=== PATIENT | female | born 1930 | race Caucasian/White ===

== ENCOUNTER → 2016-10-12 | Day surgery (SDC) | payer MEDICARE, MEDICAID ==
[~2016-10-12] VITALS: Ht 152.4 cm
[~2016-10-12] MED LIST: ALLOPURINOL100 MG PO; AMBIEN5 MG PO; ASPIR 8181 MG PO; ASPIRIN; ASPIRIN (CHILDR81 MG PO; ASPIRIN LO-DOSE81 MG PO; BENADRYL25 MG PO; BENTYL10 MG PO; BUMETANIDE2 MG PO; CALAN SR GENER180 MG PO; CALAN SR GENER240 MG PO; CALAN80 MG PO; CENTRUM SILVER1 TAB PO; DELTASONE20 MG PO; DIPHENOXYLATE-1 EACH PO; DULCOLAX10 MG R; FLAGYL500 MG PO; FLONASE 50 MCG/16 GM NOSE; FLORASTOR250 MG PO; LASIX20 MG; LEVAQUIN250 MG PO; LIDODERM 5% P1 PATCH TOP; LOMOTIL 2.5-0.1 EACH PO; LOMOTIL1 TAB PO; LOPRESSOR12.5 MG/0. PO; LOPRESSOR25 MG PO; LOVENOX 3030 MG/0.3 SUB-Q; MELATONIN PO; MELATONIN1 MG PO; MELATONIN3 MG PO; MILK OF MA400 MG/5 M PO; MIRALAX17 GM PO; MULTIVITAMINS1 EAC1 PO; NEURONTIN100 MG PO; NORCO 10-325 T1 EACH PO; NORCO 5-325 MG1 TAB PO; NORCO 5-325 TA1 EACH PO; NORVASC10 MG PO; NORVASC5 MG PO; NUCYNTA50 MG PO; PHOSLO667 MG PO; PRILOSEC; PRILOSEC20 MG PO; PROTONIX40 MG PO; RENAL CAPS SOFTG1 MG PO; RENVELA800 MG PO; RESTORIL15 MG PO; ROCALTROL0.25 MCG PO; THERA-VITE W/ B1 TAB PO; THERAGRAN-M1 TAB PO; TYLENOL EXTRA500 MG PO; ULTRAM50 MG PO; VALIUM PO; VALIUM5 MG PO; VANCOMYCIN IV; VANCOMYCIN PO; VITAMIN D1000 UNIT PO; VITAMIN D2000 UNI1 PO; WOMEN'S DAILY1 EAC1 PO; ZOCOR20 MG PO; ZYLOPRIM300 MG PO
--- NOTE | ~2016-10-12 | OR ---
PATIENT'S NAME: MILLY ARANGO [facility] AGE: 86 Y [address] ROOM: [place] [address] [place] [facility] [place] DATE: 10/12/2016 OR/Procedure Report DISCHARGE DATE: FAMILY PHYSICIAN: Asa Dominguez MD ATTENDING PHYSICIAN: FRITZ CHURCHILL SURGEON: Fritz Churchill MD DRIVER RETRAINING INSTRUCTOR: DATE OF PROCEDURE: 10/12/2016 PREOPERATIVE DIAGNOSIS: End-stage renal disease. POSTOPERATIVE DIAGNOSIS: End-stage renal disease. PROCEDURE: Right arm brachiocephalic fistula. GREENS TIER: JESSICA Jensen. ANESTHESIA: General. ESTIMATED BLOOD LOSS: 10 mL. OPERATIVE FINDINGS: Good thrill and bruit in the fistula. Strong radial and ulnar signal at the end of the case. DESCRIPTION OF PROCEDURE: The patient was brought to the operating room, placed supine on the operating table, prepped and draped in a sterile manner. Preoperative time-out was performed. The patient received preoperative antibiotics. We made a standard incision 2 cm proximal to the antecubital fossa, dissected down the fascia, incised the fascia in a longitudinal manner, dissected out the brachial artery. We then did the same thing for the cephalic vein. We transected and ligated it distally. We gave 5000 units of heparin, made an arteriotomy size of 4 mm and then did a standard 6-0 Prolene anastomosis from the vein to the artery. We removed the clamps. There was excellent flow into the fistula. There was a strong radial and ulnar signal. The layers were closed with 2-0 and 3-0 Vicryl. Skin was closed with interrupted 4-0 nylon mattress sutures. The patient tolerated the procedure well, transferred to recovery room, and allowed to go home later that day. MD JESS PALOMINO/jannethl PATIENT'S NAME: MILLY ARANGO [facility] AGE: 86 Y [address] ROOM: [place] [address] [place] [facility] [place] DATE: 10/12/2016 OR/Procedure Report DISCHARGE DATE: FAMILY PHYSICIAN: Asa Dominguez MD ATTENDING PHYSICIAN: FRITZ CHURCHILL /[id number] d: 10/12/162231 t: 10/14/16 1011, OPERATIVE SUMMARY
[2016-10-12 10:29] LABS: BASOPHIL # 0.1 K/uL (0.0-0.2); BASOPHIL % 0.9 %; EOSINOPHIL # 0.2 K/uL (0.0-0.5); EOSINOPHIL % 2.4 %; HEMATOCRIT 35.4 % (30.0-46.0); HEMOGLOBIN 11.5 g/dL (10.0-15.0); IMMATURE GRANULOCYTE % 0.3 %; LYMPHOCYTE % 26.7 %; MCH 32.4 pg (27.0-34.0); MCHC 32.5 gm/dL (32.0-36.5); MCV 99.7 fl (83.0-98.0); MONOCYTE # 0.7 K/uL (0.0-1.0); MONOCYTE % 9.7 %; NEUTROPHIL # (ANC) 4.4 K/uL (1.8-7.8); NRBC % 0 /100WBC (0-0.00); PLATELET COUNT 219 K/uL (150-450); RBC 3.55 M/uL (3.00-5.00); RDW-CV 13.3 % (11.9-14.6); WBC 7.4 K/uL (4.0-11.0)
[2016-10-12 11:30] LABS: ALBUMIN 3.6 gm/dL (3.5-5.0); CALCIUM 8.5 mg/dL (8.5-10.5); CREATININE 3.5 mg/dL (0.5-1.1); TOTAL BILIRUBIN 0.4 mg/dL (0.0-1.5); TOTAL PROTEIN 6.7 g/dL (6.0-8.4)
[2016-10-12 11:31] LABS: ANION GAP 14.5 (10.0-19.0); POTASSIUM 4.5 mMol/L (3.7-5.1)
== END | disposition disaster alternative care site (69) ==
LOC: GPOC 10-05 10:00 → GSDC 09:41
PROVIDERS: Surgery Vascular Surgery
PROC: 03170ZF Bypass Right Brachial Artery to Lower Arm Vein, Open Approach (ICD-10-PCS; principal; 2016-10-12)
DX: I12.0 Hypertensive chronic kidney disease with stage 5 chronic kidney disease or end stage renal disease (principal); N18.6 End stage renal disease; E78.5 Hyperlipidemia, unspecified; Z88.1 Allergy status to other antibiotic agents; Z88.8 Allergy status to other drugs, medicaments and biological substances; J44.9 Chronic obstructive pulmonary disease, unspecified; M10.9 Gout, unspecified; Z79.899 Other long term (current) drug therapy; Z98.890 Other specified postprocedural states
CPT/HCPCS: J0690; J1100; J1170; J1644; J2001; J2405; J2720; J7030

== ENCOUNTER → 2016-12-29 | Day surgery (SDC) | payer MEDICARE, MEDICAID ==
[~2016-12-29] VITALS: Ht 149.9 cm; Wt 67.1 kg
--- NOTE | ~2016-12-29 | OR ---
PATIENT'S NAME: MILLY ARANGO [facility] AGE: 86 Y [address] ROOM: [place] [address] LOCATION: [facility] [place] ADMIT DATE: 12/29/2016 OR/Procedure Report DISCHARGE DATE: FAMILY PHYSICIAN: Asa Dominguez MD ATTENDING PHYSICIAN: FRITZ CHURCHILL SURGEON: Fritz Churchill MD CERTIFIED PEER SPECIALIST: DATE OF PROCEDURE: 12/29/2016 PREOPERATIVE DIAGNOSIS: Right arm fistula too deep to access. POSTOPERATIVE DIAGNOSIS: Right arm fistula too deep to access. PROCEDURE: Right arm brachiocephalic AV fistula superficialization. SHIP PROPELLER FINISHER: JESSICA Jensen. ANESTHESIA: General. ESTIMATED BLOOD LOSS: 10 mL. OPERATIVE FINDINGS: Fistula now beneath the skin easily accessible. DESCRIPTION OF PROCEDURE: The patient was brought to the operating room, placed under general anesthesia, prepped and draped in a sterile manner. Preoperative time-out was performed. The patient received preoperative antibiotics. We made a standard incision along the entire length of the path of the cephalic vein after marking it with ultrasound, dissected down the fascia, incised the fascia in a longitudinal manner. Dissected the vein in a 360-degree fashion, ligated, and then tying off any side branches. We then reapproximated the deep layers with 2-0 and 3-0 Vicryl. Skin was closed with running 4-0 Monocryl and Steri-Strips. The vein was easily palpable on the skin at the end of case. The patient tolerated the procedure well, awoke in the operating room, transferred to recovery room and to home later that day. FRITZ CHURCHILL MD FKM/modl /[id number] d: 12/29/161952 t: 12/30/16 1254, OPERATIVE SUMMARY
== END | disposition disaster alternative care site (69) ==
LOC: GPOC 12-26 13:00 → GSDC 07:33 → GPOC 13:00
PROC: 05WY0JZ Revision of Synthetic Substitute in Upper Vein, Open Approach (ICD-10-PCS; principal; 2016-12-29)
DX: T82.598A Other mechanical complication of other cardiac and vascular devices and implants, initial encounter (principal); I12.0 Hypertensive chronic kidney disease with stage 5 chronic kidney disease or end stage renal disease; N18.6 End stage renal disease; I48.91 Unspecified atrial fibrillation; J44.9 Chronic obstructive pulmonary disease, unspecified; J45.909 Unspecified asthma, uncomplicated; M10.9 Gout, unspecified; E21.3 Hyperparathyroidism, unspecified; Z86.718 Personal history of other venous thrombosis and embolism; Z88.0 Allergy status to penicillin; Z88.1 Allergy status to other antibiotic agents; Z88.8 Allergy status to other drugs, medicaments and biological substances; Z79.899 Other long term (current) drug therapy
CPT/HCPCS: J0690; J2001; J2405; J2440; J7030

== ENCOUNTER → 2017-01-31 | Outpatient (CLI) | payer MEDICARE, MEDICAID ==
--- NOTE | ~2017-01-31 | OR ---
PATIENT'S NAME: MILLY ARANGO [facility] AGE: 86 Y [address] ROOM: [place] [address] LOCATION: [facility] ADMIT DATE: 01/31/2017 OR/Procedure Report DISCHARGE DATE: FAMILY PHYSICIAN: Asa Dominguez MD ATTENDING PHYSICIAN: FRITZ CHURCHILL SURGEON: Fritz Churchill MD DISTRICT MANAGER POSTAL SERVICE: DATE OF PROCEDURE: 01/31/2017 PREOPERATIVE DIAGNOSIS: Nonfunctioning fistula. POSTOPERATIVE DIAGNOSIS: Nonfunctioning fistula. PROCEDURE: Fistulogram with fistuloplasty. RACKET STRINGER: Regla Frances M.D. ANESTHESIA: MAC and local. ESTIMATED FLUID LOSS: 20 mL. OPERATIVE FINDINGS: Outflow vein stenosis as well as outflow vein impedance of flow by tunneled dialysis line. DESCRIPTION OF PROCEDURE: The patient was brought to picket [employer], placed supine on the picket [employer] table, prepped and draped in a sterile manner. Preoperative time-out was performed. We gained access using ultrasound guidance. We infiltrated the skin with 1% lidocaine. We gained access with a micropuncture needle, exchanged using Seldinger technique for a 4-Swedish short sheath. We performed a fistulogram, which showed 2 areas of outflow vein tract stenosis and that the flow to the vein was being impeded by the tunnel line. We were able to cross the outflow vein tract stenosis using three way wire. After giving heparin 3000 units, we balloon angioplastied with a 6 x 40 Johnathan balloon, relieving the stenosis completely. Sheath was removed. Pressure was held. The patient tolerated the procedure well. We will have to have her line removed in order to achieve dialysis and proper drainage from the fistula. FRITZ CHURCHILL MD FKM/modl PATIENT'S NAME: MILLY ARANGO [facility] AGE: 86 Y [address] ROOM: [place] [address] LOCATION: [facility] ADMIT DATE: 01/31/2017 OR/Procedure Report DISCHARGE DATE: FAMILY PHYSICIAN: Asa Dominguez MD ATTENDING PHYSICIAN: FRITZ CHURCHILL /[id number] d: 01/31/172145 t: 02/01/17 1630, OPERATIVE SUMMARY
[2017-01-31 11:22] LABS: ALBUMIN 3.4 gm/dL (3.5-5.0); CALCIUM 7.4 mg/dL (8.5-10.5); TOTAL BILIRUBIN 0.5 mg/dL (0.0-1.5); TOTAL PROTEIN 7.1 g/dL (6.0-8.4)
[2017-01-31 11:29] LABS: BASOPHIL # 0.1 K/uL (0.0-0.2); BASOPHIL % 0.6 %; EOSINOPHIL # 0.2 K/uL (0.0-0.5); EOSINOPHIL % 2.6 %; HEMOGLOBIN 11.4 g/dL (10.0-15.0); IMMATURE GRANULOCYTE % 0.2 %; LYMPHOCYTE # 1.8 K/uL (0.8-4.0); LYMPHOCYTE % 21.9 %; MCH 32.4 pg (27.0-34.0); MCHC 33.5 gm/dL (32.0-36.5); MCV 96.6 fl (83.0-98.0); MONOCYTE # 0.7 K/uL (0.0-1.0); MONOCYTE % 8.2 %; MPV 9.1 fl (9.4-12.4); NEUTROPHIL # (ANC) 5.5 K/uL (1.8-7.8); NEUTROPHIL % 66.5 %; NRBC % 0 /100WBC (0-0.00); PLATELET COUNT 205 K/uL (150-450); RBC 3.52 M/uL (3.00-5.00); RDW-CV 14.3 % (11.9-14.6); WBC 8.3 K/uL (4.0-11.0)
== END | disposition disaster alternative care site (69) ==
LOC: GPOC 01-30 15:00
PROVIDERS: Surgery Vascular Surgery
PROC: B513YZZ Fluoroscopy of Right Jugular Veins using Other Contrast (ICD-10-PCS; principal; 2017-01-31)
DX: T82.590A Other mechanical complication of surgically created arteriovenous fistula, initial encounter (principal)
CPT/HCPCS: C1725; J1644; J2001; J2250; J2720; J3010; J7030

== ENCOUNTER 2017-02-08 11:14 | Observation (INO) | payer MEDICARE, MEDICAID ==
[~2017-02-08] VITALS: Ht 149.9 cm; Wt 69.0 kg
--- NOTE | ~2017-02-08 | HP ---
PATIENT'S NAME: MILLY ARANGO [facility] AGE: 86 Y [address] ROOM: [address] [address] LOCATION: [facility] ADMIT DATE: 02/08/2017 History & Physical DISCHARGE DATE: FAMILY PHYSICIAN: Allie Dominguez MD ATTENDING PHYSICIAN: Allie Dominguez DATE OF SERVICE: CHIEF COMPLAINT: Chest pain. HISTORY OF PRESENT ILLNESS: The patient is an 86-year-old female who is end-stage renal disease on dialysis who presented to the [facility] emergency room this morning with complaints of chest heaviness. States that she was up, stretched herself some for breakfast and felt like she had weakness across her chest. She was slightly short of breath and not necessarily diaphoretic. She has not had that pain in the past, but she did have some left-sided shoulder pain, which she is up at the [facility] within the last week and that spontaneously resolved. The chest heaviness today did end up going away with time, was there for couple of hours, though she went to the emergency room and after calling EMS they did not have to do anything to intervene for that. She has not had any further chest discomfort since being admitted. PAST MEDICAL HISTORY: Significant for atrial fibrillation, CKD stage V requiring chronic dialysis, she has had a history of duodenal ulcer back in 2011, history of GERD, history of gout, history of DVT in the right upper extremity, hyperlipidemia, hypertensive chronic kidney disease, osteoarthritis, osteoporosis, constipation, primary hyperparathyroidism, restless legs syndrome, and spinal stenosis. PAST SURGICAL HISTORY: She has had a hysterectomy in , AV fistula placement with multiple surgeries regarding that, had bladder surgery in , cholecystectomy in 1979, colonoscopy, which she ended up having a perforated sigmoid colon with moderate diverticulosis. She had an ERCP and EGD done, exploratory laparotomy, parathyroidectomy, thoracentesis on the left in May 2015, tonsillectomy and vitrectomy for detached retina. SOCIAL HISTORY: Never been a smoker. She never drinks really alcohol at all. IMMUNIZATIONS: She had a Prevnar 13 on 10/20/2014, pneumonia vaccine in 2010, Tdap done in PATIENT'S NAME: MILYL ARANGO [facility] AGE: 86 Y [address] ROOM: [address] [address] LOCATION: [facility] ADMIT DATE: 02/08/2017 History & Physical DISCHARGE DATE: FAMILY PHYSICIAN: Allie Dominguez MD ATTENDING PHYSICIAN: Allie Dominguez May 22, and influenza on a yearly basis. She has also had a shingles vaccine done. FAMILY HISTORY: Mother had a history of colon cancer, as did her sister. Dad had a history of chronic gastric ulcer, and a sister also with hypertension. ALLERGIES: HER ALLERGIES INCLUDE PENICILLIN, BACTRIM, CEFTIN, CIPROFLOXACIN, AND LEVOFLOXACIN. REVIEW OF SYSTEMS: Really as per HPI. Otherwise she denies any dysuria, frequency, or urgency. No melena, hematochezia, or bright red blood per rectum. No recent history of GI bleed. All other review of systems are negative. PHYSICAL EXAMINATION: GENERAL: The patient is nontoxic appearing female who appears her stated age, otherwise in no acute distress. HEENT: Normocephalic and atraumatic. Ears: TMs are clear and intact bilaterally. Nose: Patent. Throat: Clear. NECK: Without lymphadenopathy, JVD, thyromegaly, or bruits. HEART: Regular rate and rhythm with a grade 4/6 systolic murmur heard best at the right upper sternal border. LUNGS: Clear to auscultation bilaterally. ABDOMEN: Soft, nondistended, and nontender. Bowel sounds are positive. There is no hepatosplenomegaly. No guarding or rebound. EXTREMITIES: 2 to 3+ pitting edema bilaterally which is stable for her. ASSESSMENT AND PLAN: This is an 86-year-old white female with the following problem list: 1. Chest heaviness and pressure. Certainly, she has multiple risk factors for coronary artery disease. We will have Cardiology see her. She needs get echo anyway just to further evaluate her murmur. She is very concerned about undergoing a heart catheterization, as she states "I am too old for that." She is leaning more towards just looking at a stress test and going from there. 2. Significant right hand pain. She has a lot of right hand pain and it looks like most of that is with just movement of her 4th and may be her 5th finger almost like at the tenosynovitis. There is no redness or warmth to the area. We will go ahead and give her a couple of doses of Solu-Medrol and see if that helps to quiet that down. So it does not look like gout at this point. 3. End-stage renal disease, on dialysis. She is currently getting dialysis as we speak, but is very frustrated overall with the process of multiple PATIENT'S NAME: MILLY ARANGO [facility] AGE: 86 Y [address] ROOM: [place] [address] LOCATION: [facility] ADMIT DATE: 02/08/2017 History & Physical DISCHARGE DATE: FAMILY PHYSICIAN: Allie Dominguez MD ATTENDING PHYSICIAN: Allie Dominguez surgeries and even talked about stopping dialysis. 4. Hyperlipidemia, she is currently doing well on her simvastatin. 5. History of osteoporosis. She is currently getting Prolia for that. 6. History of GERD with history of duodenal ulcer. Hemoglobin currently is stable. She will call or return if she has any further problems or concerns. She voiced understanding of that plan. ALLIE DOMINGUEZ MD TAB/modl /[id number] D: [id number] T: 623 HISTORY & PHYSICAL
--- NOTE | ~2017-02-08 | ECHO ---
Transthoracic Echocardiography Report (TTE) Demographics Patient Name MILLY ARANGO Date of Study 02/09/2017 A Patient Number [id number] Visit Number [id number] Date of 1930 Room Number G6320 Accession Number [id number] Gender Female Age 86 year(s) Referring Photographic Artist Andre Alcantara RVCaleb, Physician RDMANSOOR Physician Interpreting Giuseppe[place]or[place] Regla Certified Nurses Aide Physician MD Supervising Ordering Physician Angelica Walsh MD, MD/P Nurse Stress Occupational Health Physician Conclusions Contractility Score Summary Normal Left Ventricular contractility was noted. Summary The estimated left ventricular ejection fraction is 60-65%. Mild concentric left ventricular hypertrophy. Diastolic assessment reveals Grade I diastolic dysfunction. Mildly dilated right ventricle with normal function. Moderate biatrial enlargement. Moderate mitral annular calcification. Mild mitral regurgitation by color Doppler. There is severe aortic stenosis by the Continuity Equation. The peak velocity is 4.08 m/s, the mean gradient is 39 mmHg, and the valve area based on the continuity equation is .42 cm2, stroke volume index is ml/m2. There is mild aortic regurgitation by color Doppler. Moderate tricuspid regurgitation by color Doppler. There is mild pulmonary hypertension. The pulmonary pressure (RVSP) is 47 mmHg. Procedure Type of Study TTE procedure:2D Echocardiogram. Procedure Date Date: 02/09/2017 Start: 07:42 AM Study Location: Inpatient Portable Technical Quality: Fair Indications:Heart Murmur. Appropriate Use Criteria: 8 Patient Status: Routine Rhythm: NSR HR: 67 bpm BP: 112/53 mmHg M-Mode/2D Measurements LV Diastolic Dimension: 3.37 cm LV Systolic Dimension: 2.56 cm LV Septum Diastolic: 0.95 cm LV PW Diastolic: 1 cm AO Root Dimension: 2.1 cm Cardiac Output: 2.78 l/min AV Cusp Separation: 0.7 cm RV Diastolic Dimension: 2.34 cm LA volume: 57 ml LVOT: 1.3 cm RV Base: 5.03 cm LVOT VTI: 31.3 cm RV Mid: 3.31 cm LV Stroke volume: 41.52 ml TAPSE: 3.01 cm TDI-S': 15 cm/s Doppler Measurements AV Peak Velocity: 4.08 m/s MV Peak E-Wave: 1.11 m/s AV Peak Gradient: 66.59 mmHg MV Peak A-Wave: 1.23 m/s AV Mean Gradient: 39 mmHg MV E/A Ratio: 0.9 LVOT Peak Velocity: 1.02 m/s MV P1/2t: 79 msec TR Gradient:41.47 mmHg PV Peak Velocity: 0.01 m/s Estimated RAP:5 mmHg PV Peak Gradient: 0 mmHg Estimated RVSP: 46 mmHg Estimated PASP: 46.47 mmHg E' Septal Velocity: 0.07 m/s A' Septal Velocity: 0.04 m/s E' Lateral Velocity: 0.06 m/s A' Lateral Velocity: 0.11 m/s Findings Left Ventricle Mild concentric left ventricular hypertrophy. Diastolic assessment reveals Grade I diastolic dysfunction. Right Ventricle Mildly dilated right ventricle with normal function. Left Atrium The left atrium is moderately dilated. There is no evidence of patent foramen ovale or atrial septal defect by color Doppler. Right Atrium The right atrium is moderately dilated. IVC measures 1.80 cm with inspiratory collapse. Mitral Valve Moderate mitral annular calcification. Mild mitral regurgitation by color Doppler. Aortic Valve There is severe aortic stenosis by the Continuity Equation. The peak velocity is 4.08 m/s, the mean gradient is 39 mmHg, and the valve area based on the continuity equation is .42 cm2, stroke volume index is ml/m2. There is mild aortic regurgitation by color Doppler. Tricuspid Valve Moderate tricuspid regurgitation by color Doppler. There is mild pulmonary hypertension. The pulmonary pressure (RVSP) is 47 mmHg. Pulmonic Valve Normal pulmonic valve structure and function. Trivial pulmonic valve regurgitation by color Doppler. Pericardial Effusion No evidence of pericardial effusion. Miscellaneous Visualized portions of the aortic root and ascending aorta appear normal in size. Pleural Effusion No evidence of pleural effusion. Contractility Score LV regional wall motion:(0-Non visualized 1-Normal 2-Hypokinesis 3-Akinesis 4-Dyskinesis 5-Aneurysm) Signature dtt: REGLA DUGAN dtd: 02/09/17 0742 Physician Self Edit
--- NOTE | ~2017-02-08 | ENPV ---
Vascular Upper Extremities Veins, Upper Extremities Arterial Duplex and Dialysis Procedure Demographics Patient Name MILLY ARANGO Date of Study 02/09/2017 Patient Number [id number] Gender Female Date of 1930 Age 86 Visit Number [id number] Height 59 Accession Number [id number] Weight 152 Referring Zhao Hu MD Interpreting Zhao Hu MD Physician Physician Physician Ordering Physician Zhao Hu MD Biomass Production Manager Instrumentation Fitter Panda Wilson BS, RT Conclusions Summary No Thrombosis seen. Flow volumes were obtained. Patent right brachiocephalic AVF. Radial and ulnar arteries appear to be antegrade. Patient was scanned with the notch to the right of patient. Procedure Type of Study: Extremities Arteries:Upper Extremities Arterial Duplex, Upper Extremity Right. Veins:Upper Extremities Veins, Upper Extremity Right. Dialysis:A.V. Fistula Duplex NH. Indications for Study:Arm pain. Additional Indications:Pain in hand Patient Status:Routine. Study Location:Vascular Lab. Technical Quality:Adequate visualization. Velocities are measured in cm/s ; Diameters are measured in cm Right Upper Extremities Duplex Measurements + +---+-----+ +---------+ !Location !PSV!Ratio!Wave Description !Diameter ! + +---+-----+ +---------+ !Mid Subclavian !148! ! ! ! + +---+-----+ +---------+ !Axillary !175! ! ! ! + +---+-----+ +---------+ !Mid Brachial !148!1 ! ! ! + +---+-----+ +---------+ !Dist Radial !64 !0.43 ! ! ! + +---+-----+ +---------+ Velocities are measured in cm/s ; Diameters are measured in cm Right UE Vein Measurements 2D and Doppler Measurements + + + + +--------+--------+ !Location !Visualized !Compressibility !Thrombosis !Signal !Reflux ! + + + + +--------+--------+ !IJV !Yes !Yes !None !Phasic !No ! + + + + +--------+--------+ !SCV !Yes !Yes !None !Phasic !No ! + + + + +--------+--------+ !Innominate !Yes !Yes !None !Phasic !No ! + + + + +--------+--------+ !Axillary !Yes !Yes !None !Phasic !No ! + + + + +--------+--------+ !Brachial !Yes !Yes !None !Phasic !No ! + + + + +--------+--------+ !Basilic !Yes !Yes !None !Phasic !No ! + + + + +--------+--------+ !Cephalic !Yes !Yes !None !Phasic !No ! + + + + +--------+--------+ Velocities are measured in cm/s ; Diameters are measured in cm Dialysis Fistula - Access Description - The fistula anastomosis site is - Right Dist Brachial. + +---+---+ +-----+ + !Fistula Location !PSV!EDV!AP Diam !Depth!Volume Flow ! + +---+---+ +-----+ + !Dist Radial !66 ! ! ! ! ! + +---+---+ +-----+ + !Arterial Anastomosis !295! !0.13 !0.7 !260 ! + +---+---+ +-----+ + !Prox Vein !311! !0.38 !0.36 !798 ! + +---+---+ +-----+ + !Mid Vein !54 ! !0.53 !0.15 !1399 ! + +---+---+ +-----+ + !Distal Vein !45 ! !0.44 !0.39 !1172 ! + +---+---+ +-----+ + Signature dtt: CHENG VENTURA dtlam: 02/09/17 1117 Physician Self Edit
--- NOTE | ~2017-02-08 | CON ---
PATIENT'S NAME: MILLY ARANGO [facility] AGE: 86 Y [address] ROOM: [place] [address] LOCATION: GPCU ADMIT DATE: 02/08/2017 Consultation DISCHARGE DATE: 02/09/2017 FAMILY PHYSICIAN: Asa Dominguez MD ATTENDING PHYSICIAN: Asa Dominguez CORRECTED COPY -- ACCT NO / 7-10-17 / KLD DATE OF CONSULTATION: 02/09/2017 CARDIOLOGY CONSULTATION REASON FOR CARDIOLOGY CONSULTATION: Chest pain. HISTORY OF PRESENT ILLNESS: This is an 86-year-old female who experienced sharp pain in her left shoulder a few days ago while shopping with her daughter. During the episode, she also had complaints of lightheadedness and shortness of breath. She presented to [facility] Emergency Department on 02/08/2017 with complaints of substernal chest pain that she describes as pressure and "hard to breathe." She admits to no other complaints. She denies syncope or palpitations. She states she does have a previous history of heart catheterization about [address] [facility] in [place]. Her other history is very extensive for end-stage renal disease, currently on hemodialysis on Monday, Monday, and Monday. At the time of this consult, she is resting comfortably in bed with no complaints of pain and appears to be in no acute distress. PAST MEDICAL HISTORY: 1. Hyperlipidemia. 2. End-stage renal disease. 3. Hemodialysis. 4. History of GI bleeding with blood loss anemia. 5. Secondary hypoparathyroidism. 6. Osteoporosis. 7. History of thyroid cancer. 8. History of pancreatitis due to gallstones. 9. Osteoarthritis. 10. Spinal stenosis. 11. Gout. PAST SURGICAL HISTORY: 1. AV fistula creation with recent need for further surgeries to that. 2. Cholecystectomy. 3. Cataract removal. 4. Retinal detachment repair. PATIENT'S NAME: MILLY ARANGO [facility] AGE: 86 Y [address] ROOM: [place] [address] LOCATION: GPCU ADMIT DATE: 02/08/2017 Consultation DISCHARGE DATE: 02/09/2017 FAMILY PHYSICIAN: Asa Dominguez MD ATTENDING PHYSICIAN: Asa Dominguez 5. Partial thyroidectomy. 6. Parathyroidectomy. 7. Salpingo-oophorectomy. 8. Tonsillectomy. FAMILY HISTORY: There is noted history of colon cancer in her mother. Her father had a history of bleeding ulcers. She has a sister with a history of colon cancer as well as a brother with a history of liver cancer. SOCIAL HISTORY: The patient denies ever using tobacco. She also denies alcohol or illicit drug use. CURRENT MEDICATIONS: 1. Flonase 1 spray intranasally daily. 2. Aspirin 81 mg p.o. daily. 3. Lipitor 80 mg p.o. daily. 4. Lopressor 50 mg p.o. twice daily. 5. Melatonin 1.5 mg p.o. daily in the evening. 6. Neurontin 100 mg p.o. daily in the evening. 7. Norvasc 5 mg p.o. daily. 8. PhosLo 667 mg p.o. 3 times daily. 9. Protonix 40 mg p.o. daily. 10. Zyloprim 150 mg p.o. daily. MEDICATION ALLERGIES: Include: Penicillin, erythromycin base, nitrofurantoin, ciprofloxacin, clarithromycin, amoxicillin, and levofloxacin, all of which cause nausea and upset stomach. REVIEW OF SYSTEMS: Pertinent positive review of systems listed in the HPI. All other review of systems evaluated and negative. DIAGNOSTICS: Cardiac enzyme trend shows a CPK of 88, then 84, then 77; CK-MB of 0.8, then 1.1, then less than 0.5; and a troponin I of less than 0.04 x5 values. Her echocardiogram is currently pending as of this dictation. PHYSICAL EXAMINATION: VITAL SIGNS: Temperature 97.9, pulse 67, respirations 16, blood pressure 112/53, and O2 saturation 96% on room air. The patient weighs 69 kg. SKIN: [place], warm, and dry. EYES: Sclerae clear. No xanthelasmas. PATIENT'S NAME: MILLY ARANGO [facility] AGE: 86 Y [address] ROOM: [place] [address] LOCATION: GPCU ADMIT DATE: 02/08/2017 Consultation DISCHARGE DATE: 02/09/2017 FAMILY PHYSICIAN: Asa Dominguez MD ATTENDING PHYSICIAN: Asa Dominguez ENT: Oral mucosa is pink and moist. No jugular venous distention. No carotid bruits. CHEST: Respirations are even and unlabored. LUNGS: Clear to auscultation. HEART: Regular rate and rhythm. The patient does have a 2/6 systolic murmur. ABDOMEN: Soft and nontender. MUSCULOSKELETAL: Gait is normal. EXTREMITIES: Peripheral pulses palpable. No clubbing or cyanosis noted. Does have 2 to 3+ lower extremity edema present. PSYCHIATRIC: Alert and oriented. Mood and affect are appropriate. IMPRESSION AND PLAN: Per Dr. Regla Frances: 1. Chest pain with negative cardiac enzymes as well as no acute changes on her EKG. Could most likely be to her valve etiology so we will fully evaluate her echocardiogram to look at her ejection fraction as well as look for wall motion or valvular abnormalities. 2. Systolic murmur. Once again, we will check that echocardiogram for questionable severe aortic stenosis. She does have complaints of angina and dyspnea, but no complaints of syncope. 3. End-stage renal disease, on hemodialysis. Once again, this is an 86-year-old female with severe symptomatic aortic stenosis per preliminary echocardiogram over review, full report is pending. She does have complaints of chest pain and dizziness. She has been ruled out of a myocardial infarction with negative cardiac enzymes. I did discuss between the patient and Dr. Regla Frances, the recommendations for transcatheter aortic-valve replacement workup. The patient would like some time to think about this recommendation. In any case, this patient needs to ensure that she can undergo dialysis and be able to access her fistula properly if transcatheter aortic-valve replacement workup is to proceed with need for multiple CTs of abdomen, pelvis, and chest. We will continue to discuss this with the patient as an outpatient visit and she does have a followup appointment scheduled with Dr. Regla Frances at the end of February. No further cardiac recommendations at this time. We will continue to monitor, evaluate, and treat as appropriate. Thank you Dr. Dominguez for this consult. Thank you for allowing [facility] to interact in the care of this patient. ABE MEDRANO APRN FOR MD KIZZY RAZO/tiki PATIENT'S NAME: MILLY ARANGO [facility] AGE: 86 Y [address] ROOM: [place] [address] [facility] ADMIT DATE: 02/08/2017 Consultation DISCHARGE DATE: 02/09/2017 FAMILY PHYSICIAN: Asa Dominguez MD ATTENDING PHYSICIAN: Asa Dominguez /[id number] CORRECTED COPY -- ACCT NO / 7-10-17 / KLD d: 02/09/172035 t: 02/15/17 1729, CONSULTATION REPORT
--- NOTE | ~2017-02-08 | ER ---
PATIENT'S NAME: MILLY ARANGO [facility] AGE: 86 Y [address] ROOM: [place] [address] LOCATION: GPCU ADMIT DATE: 02/08/2017 ER/Outpatient Report DISCHARGE DATE: FAMILY PHYSICIAN: Asa Dominguez MD ATTENDING PHYSICIAN: Asa Dominguez TIME OF ARRIVAL: 1111 hours. TIME OF EVALUATION: 1111 hours. CHIEF COMPLAINT: Chest pain and shortness of breath. HISTORY OF PRESENT ILLNESS: The patient is an 86-year-old female who presents to the emergency department today with chief complaint of chest pain and shortness of breath. She reports that she had gone shopping on Monday four days prior to arrival. While she was walking while shopping, she developed some shoulder pain and shortness of breath. She felt very weak at that time. She went home and felt better. She then today developed shortness of breath and chest pain while walking at the mailbox, this did resolve with rest. She denies any fevers or chills. No nausea or vomiting. No diarrhea. No constipation. She does have some heaviness reported in chest, 5/10 in severity. PAST MEDICAL HISTORY: Acid reflux; GI bleed; hypothyroid; hypertension; renal failure; chronic kidney disease, on hemodialysis Monday, Monday, Monday; gout. PAST SURGICAL HISTORY: Cholecystectomy, MRCP, ocular surgery for cataract, retinal detachment repair, partial thyroidectomy, EGD with active duodenal ulcers, parathyroidectomy, salpingo-oophorectomy, tonsillectomy, vitrectomy with detached retina. SOCIAL HISTORY: The patient denies any tobacco, alcohol, or illicit drug use. ALLERGIES: PENICILLIN, MACROLIDES, NITROFURANTOIN, QUINOLONES, CIPROFLOXACIN, CEFUROXIME, CLARITHROMYCIN, AMOXICILLIN, AND LEVAQUIN. MEDICATIONS: Please see list. PATIENT'S NAME: MILLY ARANGO [facility] AGE: 86 Y [address] ROOM: [place] [address] LOCATION: GPCU ADMIT DATE: 02/08/2017 ER/Outpatient Report DISCHARGE DATE: FAMILY PHYSICIAN: Asa Dominguez MD ATTENDING PHYSICIAN: Asa Dominguez PRIMARY CARE DOCTOR: Asa Dominguez MD. REVIEW OF SYSTEMS: All systems are reviewed by myself and negative with the exception of those discussed in HPI and past medical history. PHYSICAL EXAMINATION: VITAL SIGNS: Weight 68.9 kg, blood pressure 121/62, pulse 75, respiratory rate 20, temperature 97.7, oxygen saturation 98% on room air. GENERAL: The patient is an 86-year-old female, appears stated age, in mild acute distress. HEENT: Normocephalic, atraumatic. Pupils are equal, round, and reactive to light. Extraocular motions are intact. NECK: Supple. There is no nuchal rigidity. CARDIOVASCULAR: Regular rate and rhythm. Positive murmur. No rubs or gallops. LUNGS: Clear to auscultation bilaterally. ABDOMEN: Soft, nontender, and nondistended. No rebound, rigidity, or guarding. MUSCULOSKELETAL: The patient moves all 4 extremities. SKIN: Warm and dry. LABORATORY DATA AND X-RAYS: Labs and x-rays are obtained. CBC: White blood cell count 12.4, otherwise unremarkable. Coags are normal. CMP is unremarkable except for BUN 57, creatinine 5.8. ALT is normal. Mag is normal. CK-MB and troponin are normal. ProBNP is 9051. EKG is obtained, is interpreted by myself at 1125 hours shows sinus rhythm with a rate of 74, normal axis, normal interval. No ST elevation, ST depression, T-wave inversions are noted. IMPRESSION: 1. Chest pain, rule out acute coronary syndrome with dyspnea on exertion. 2. End-stage renal disease, on hemodialysis Monday, Monday, and Monday. 3. Initial visit. EMERGENCY DEPARTMENT COURSE: The patient brought back to the examination room. Seen and evaluated by myself. IV is established. Laboratory analysis and imaging are obtained as described above. The patient's pain is improved. She is given 4 baby aspirin. I have discussed results with the patient. Her pain is significantly improved at this time. I have discussed the case with Dr. Dominguez who does agree to accept the patient for further evaluation, treatment, and management. PATIENT'S NAME: MILLY ARANGO [facility] AGE: 86 Y [address] ROOM: [address] [address] LOCATION: GPCU ADMIT DATE: 02/08/2017 ER/Outpatient Report DISCHARGE DATE: FAMILY PHYSICIAN: Asa Dominguez MD ATTENDING PHYSICIAN: Asa Dominguez DISPOSITION: The patient is admitted under the care of Dr. Dominguez in stable condition. ANIL J DO ANDREW KJLinda/modl /[id number] d: 02/08/17 1935 t: 02/11/17 0649, OUTPATIENT REPORT
--- NOTE | ~2017-02-08 | CON ---
PATIENT'S NAME: MILLY ARANGO [facility] AGE: 86 Y [address] ROOM: [place] [address] LOCATION: GPCU ADMIT DATE: 02/08/2017 Consultation DISCHARGE DATE: FAMILY PHYSICIAN: Asa Dominguez MD ATTENDING PHYSICIAN: Asa Dominguez DATE OF CONSULTATION: 02/08/2017 This is a [facility] Nephrology consultation. REASON FOR CONSULTATION: End-stage renal disease, on hemodialysis therapy. HISTORY OF PRESENT ILLNESS: This is an 86-year-old female patient, who has a longstanding history of end- stage renal disease, on hemodialysis on Monday, Monday, Monday at [facility]. The patient did show up today to the emergency room after having a 2- to 3-day onset of weakness. The patient does report that while she was at the grocery store on Monday, she did have increasing right shoulder pain that was persistent. The patient did sit down to rest and she did report a decrease in her pain in the right shoulder. The patient felt better for the last 2 days and woke up this morning with substernal chest pain. The patient does undergo hemodialysis Monday, Monday, Monday, and was scheduled for outpatient dialysis today. Therefore, due to her history of end- stage renal disease, requiring hemodialysis, Dr. Gibson has been asked to consult on the patient and manage her routine dialysis while she is hospitalized. PAST MEDICAL HISTORY: As listed above, including; 1. End-stage renal disease. 2. History of hemodialysis. 3. History of lower GI bleed with acute blood loss anemia. 4. Secondary hypoparathyroidism. 5. GERD. 6. Osteoporosis. 7. Hyperlipidemia. 8. Vitamin D deficiency. 9. Renovascular hypertension. 10. History of thyroid cancer. 11. History of pancreatitis secondary to gallstones in the common bile duct. 12. Spinal stenosis. 13. Osteoarthritis. PATIENT'S NAME: MILLY ARANGO [facility] AGE: 86 Y [address] ROOM: [place] [address] LOCATION: GPCU ADMIT DATE: 02/08/2017 Consultation DISCHARGE DATE: FAMILY PHYSICIAN: Asa Dominguez MD ATTENDING PHYSICIAN: Asa Dominguez 14. Gout. PAST SURGICAL HISTORY: 1. Cholecystectomy. 2. MRCP. 3. Ocular surgery for cataracts. 4. Retinal detachment repair. 5. Partial thyroidectomy. 6. EGD in 2011 with active duodenal ulcers. 7. Parathyroidectomy in 2013. 8. Salpingo-oophorectomy in the . 9. Tonsillectomy at the age of 13. 10. Vitrectomy for the detached retina in the . ALLERGIES: PENICILLIN, MACROLIDES, NITROFURANTOIN, QUINOLONES, PENICILLIN V, CIPROFLOXACIN, CEFUROXIME, CLARITHROMYCIN, AMOXICILLIN, AND LEVAQUIN. CURRENT HOME MEDICATIONS: 1. Tylenol 500 mg 2 tablets p.o. q.6 hours. 2. Allopurinol 150 mg p.o. daily. 3. B complex #20. 4. Folic acid 1 tablet daily. 5. Calcium acetate 667 mg 1 tablet p.o. t.i.d. 6. Fluticasone 1 spray in nostrils twice a day. 7. Gabapentin 100 mg p.o. daily at bedtime. 8. Melatonin 1.5 mg p.o. at bedtime. 9. Lopressor 50 mg twice a day. 10. Zocor 20 mg daily at bedtime. FAMILY HISTORY: Reviewed and is significant for her mother having history of colon cancer. Father had history of bleeding ulcer. Sister has a history of colon cancer and also a brother with liver cancer. SOCIAL HISTORY: The patient denies any illicit drug use, tobacco abuse, or alcohol use. REVIEW OF SYSTEMS: GENERAL: Denies fever, chills, or night sweats. Positive for weakness. HEENT: Eyes: No double vision or blurred vision. Nose: No epistaxis or rhinorrhea. Mouth: No gingival bleeding. Throat: No sore throat, hoarseness, or cough. RESPIRATORY: Denies wheezing or hemoptysis. VASCULAR: See HPI. PATIENT'S NAME: MILLY ARANGO [facility] AGE: 86 Y [address] ROOM: [id number] [place], [place] [address] [facility] ADMIT DATE: 02/08/2017 Consultation DISCHARGE DATE: FAMILY PHYSICIAN: Asa Dominguez MD ATTENDING PHYSICIAN: Asa Dominguez GASTROINTESTINAL: Denies nausea, vomiting, or diarrhea. GENITOURINARY: She does continue to make a small amount of urine despite hemodialysis. MUSCULOSKELETAL: Denies arthralgias or myalgias. ENDOCRINE: Denies history of diabetes. Positive for history of thyroid cancer. HEMATOLOGIC: Denies any bruising or bleeding. NEUROLOGIC: Denies numbness or tingling in the upper or lower extremities. Denies balance or gait disturbances. She does utilize a walker for ambulation. PSYCHIATRIC: Denies depression or anxiety, however, in the more recent months, the patient does express some episodes of feeling "down" secondary to trouble with dialysis access. PHYSICAL EXAMINATION: VITAL SIGNS: Blood pressure is 144/48, pulse is 62, temperature is 98.7, respirations 18, and saturations 97% on room air. GENERAL: On exam, this is a pleasant, alert, oriented, white, elderly female; who is alert and oriented to person, place, and time. She is in no acute distress. HEENT: Head: Normocephalic and atraumatic. Eyes: Pupils are equal, round, and reactive to light and accommodation. Corrective lenses are warm. Nose: Midline. Mouth: No gingival bleeding. Throat is without lymphadenopathy or carotid bruits. Unable to assess JVD. LUNGS: Lung sounds are clear to auscultation anteriorly and posteriorly. Breaths are nonlabored. CARDIOVASCULAR: Regular rate and rhythm with a grade 2 to 3/6 systolic ejection murmur heard best at the right second intercostal space with radiation to the base of the carotids. ABDOMEN: Soft, nontender, and nondistended. Bowel sounds positive. EXTREMITIES: Show trace pedal edema bilaterally. NEUROLOGIC: Cranial nerves II through XII are grossly intact. ASSESSMENT AND PLAN: 1. End-stage renal disease, on hemodialysis therapy. We will obtain the patient's outpatient clinical record and provide hemodialysis accordingly. In the interim, the patient is currently using a tunneled dialysis catheter and we will ultrafiltrate as tolerated. Blood pressure should support ultrafiltration of at least 1 to 2 L. 2. Renovascular hypertension. Blood pressures are stable currently. We will continue current medications and further per Dr. Dominguez. 3. Hyperlipidemia. Continue Zocor. 4. Hyperphosphatemia. The patient is to continue her PhosLo at this time with food. PATIENT'S NAME: MILLY ARANGO [facility] AGE: 86 Y [address] ROOM: [id number] [place] [address] [facility] ADMIT DATE: 02/08/2017 Consultation DISCHARGE DATE: FAMILY PHYSICIAN: Asa Dominguez MD ATTENDING PHYSICIAN: Asa Dominguez This patient has been seen and assessed by Dr. Gibson. Her care is being conducted in consultation with Dr. Gibson as well as me. We will plan further recommendations as they are forthcoming. In the interim, the patient is seen on hemodialysis therapy. She is on a 4K bath with a calcium bath of 2.25 with a blood flow rate of 450 and dialysis flow of 700. We will attempt to ultrafiltrate 1 to 3 L of fluid as blood pressures tolerate. LASHAWN MELVIN DNP, [employer] TECHNICIAN FOR M MD BEATRIZ HECTOR/modl /[id number] d: 02/08/17 2155 t: 02/13/17 1309, CONSULTATION REPORT
[~2017-02-08 11:14] MED LIST changes: -ASPIRIN (CHILDR81 MG PO; -ASPIRIN LO-DOSE81 MG PO; -DULCOLAX10 MG R; -FLAGYL500 MG PO; -FLORASTOR250 MG PO; -LOMOTIL1 TAB PO; -LOVENOX 3030 MG/0.3 SUB-Q; -MILK OF MA400 MG/5 M PO; -NUCYNTA50 MG PO; -THERAGRAN-M1 TAB PO; -VANCOMYCIN IV; -VANCOMYCIN PO; -WOMEN'S DAILY1 EAC1 PO
[2017-02-08 11:30] LABS: BASOPHIL # 0.1 K/uL (0.0-0.2); BASOPHIL % 0.6 %; EOSINOPHIL # 0.1 K/uL (0.0-0.5); EOSINOPHIL % 1.1 %; HEMATOCRIT 33.5 % (30.0-46.0); HEMOGLOBIN 11.2 g/dL (10.0-15.0); IMMATURE GRANULOCYTE # 0.1 K/uL (0.0-0.3); IMMATURE GRANULOCYTE % 0.5 %; LYMPHOCYTE % 16.1 %; MCH 32.2 pg (27.0-34.0); MCHC 33.4 gm/dL (32.0-36.5); MCV 96.3 fl (83.0-98.0); MONOCYTE % 7.9 %; MPV 8.4 fl (9.4-12.4); NEUTROPHIL # (ANC) 9.1 K/uL (1.8-7.8); NEUTROPHIL % 73.8 %; NRBC % 0 /100WBC (0-0.00); PLATELET COUNT 209 K/uL (150-450); RBC 3.48 M/uL (3.00-5.00); RDW-CV 14.3 % (11.9-14.6); WBC 12.4 K/uL (4.0-11.0)
[2017-02-08 11:37] LABS: INR - (THERAPEUTIC) 0.95 (0.92-1.07); PTT 28 SECONDS (25-32)
[2017-02-08 11:50] LABS: ALBUMIN 3.3 gm/dL (3.5-5.0); ALK PHOS 80 IU/L (33-138); ALT 12 IU/L (12-78); ANION GAP 17.8 (10.0-19.0); AST 10 IU/L (10-40); CHLORIDE 104 mMol/L (96-110); CO2 22 mMol/L (22-32); CPK 78 IU/L (21-215); POTASSIUM 3.8 mMol/L (3.7-5.1); SODIUM 140 mMol/L (135-145); TOTAL BILIRUBIN 0.4 mg/dL (0.0-1.5); TOTAL PROTEIN 6.9 g/dL (6.0-8.4)
[2017-02-08 11:52] LABS: BLOOD UREA NITROGEN 57 mg/dL (6-24); CALCIUM 6.7 mg/dL (8.5-10.5); CREATININE 5.8 mg/dL (0.5-1.1); ESTIMATED GFR (MDRD EQUATION) 7
[2017-02-08 14:14] LABS: CPK 74 IU/L (21-215)
[2017-02-08 14:35] LABS: BILIRUBIN URINE NEGATIVE (NEGATIVE); BLOOD URINE 25 /UL (NEGATIVE); COLOR URINE YELLOW (YELLOW); GLUCOSE URINE NEGATIVE (NEGATIVE); KETONE URINE NEGATIVE (NEGATIVE); LEUKOCYTES URINE 500 /UL (NEGATIVE); NITRITE URINE NEGATIVE (NEGATIVE); PROTEIN URINE 30 mg/dL (NEGATIVE); TURBIDITY URINE CLEAR (CLEAR); UROBILINOGEN URINE NORMAL (NORMAL)
[2017-02-08 15:18] LABS: AMORPHOUS URINE 2+ (NEGATIVE); BACTERIA URINE FEW (NEGATIVE); RBC URINE RARE #/HPF (NEGATIVE)
[2017-02-08 19:31] LABS: CPK 88 IU/L (21-215)
[2017-02-09 01:27] LABS: CPK 84 IU/L (21-215)
--- NOTE | 2017-02-09 04:32 | NUR ---
Significant events: Pt A/Ox3. VSS. On RA. C/O R) wrist pain 10/10 upon arrival to floor. Morphine x2, [place] x3 given throughout shift. Ice to wrist. Pt states pain has improved throughout shift, sleeping better. Chest pain x1, relief with morphine. Cardiology to see today. Ortho consulted. Up 1PA.
[2017-02-09 07:17] LABS: CPK 77 IU/L (21-215)
--- NOTE | 2017-02-09 13:12 | NUR ---
Introduced self and role of care management to patient. She lives in [place] by herself. She states that she is able to do all her own ADL's. She states that her daughter does assist as needed. She goes to dialysis on Monday, Monday and Fridays in [place]. Her daughter transports her. She also has [facility] home health that follows. I did call and update Caroline at [facility] of patient admission. She plans on returning home on discharge. Will resume home health on discharge. Will continue to follow.
[2017-02-09 14:30] LABS: CPK 78 IU/L (21-215)
[2017-02-09] MEDS ORDERED: ASPIRIN (CHILDR81 MG PO (16:28)
--- NOTE | 2017-02-09 18:48 | NUR ---
Significant Event: Patient A/O x 3. Up with 1A and walker. VSS on RA. Report right wrist pain which is controlled with [place]. R)upper arm fistula with thrill and bruit present. R)tunneled dialysis line intact. Okay from cardio, renal, and vascular standpoint for patient to dismiss tonight. Follow up: Continue as per plan of care. Dismiss tonight.
[2017-02-28] MEDS ORDERED: VANCOMYCIN PO (08:13)
== END 2017-02-09 19:30 | disposition disaster alternative care site (69) ==
LOC: GMED 11:14 → GPCU 13:45
PROVIDERS: Emergency Medicine; ADMIT Family Medicine
DX: R07.89 Other chest pain (principal); M25.541 Pain in joints of right hand; E78.5 Hyperlipidemia, unspecified; M81.0 Age-related osteoporosis without current pathological fracture; K21.9 Gastro-esophageal reflux disease without esophagitis; E03.9 Hypothyroidism, unspecified; I12.0 Hypertensive chronic kidney disease with stage 5 chronic kidney disease or end stage renal disease; N18.6 End stage renal disease; I15.0 Renovascular hypertension; N25.81 Secondary hyperparathyroidism of renal origin; M19.90 Unspecified osteoarthritis, unspecified site; Z99.2 Dependence on renal dialysis; Z90.49 Acquired absence of other specified parts of digestive tract; Z90.710 Acquired absence of both cervix and uterus; Z98.890 Other specified postprocedural states; Z79.899 Other long term (current) drug therapy; Z88.0 Allergy status to penicillin; Z88.1 Allergy status to other antibiotic agents; I08.3 Combined rheumatic disorders of mitral, aortic and tricuspid valves; I27.2 Other secondary pulmonary hypertension
CPT/HCPCS: A9270; G0378; G8996; G8997; G8998; J1644; J2270; J2543; J2930; J7030

== ENCOUNTER 2017-02-12 08:45 | Inpatient (IN) | payer MEDICARE, MEDICAID ==
[~2017-02-12] VITALS: Ht 149.9 cm; Wt 67.5 kg
--- NOTE | ~2017-02-12 | DS ---
PATIENT'S NAME: MILLY ARANGO [facility] AGE: 86 Y [address] ROOM: [id number] [place], [place] [address] LOCATION: [facility] ADMIT DATE: 02/14/2017 Discharge Summary DISCHARGE DATE: FAMILY PHYSICIAN: Allie Dominguez MD ATTENDING PHYSICIAN: Solo Van FINAL DIAGNOSES: 1. Clostridium difficile colitis. 2. Atrial fibrillation. 3. Chronic kidney disease, stage 5, on chronic dialysis. 4. History of duodenal ulcer. 5. Severe aortic stenosis. 6. Restless legs syndrome. 7. History of colon perforation in 2014. 8. History of gastroesophageal reflux disease. 9. History of gout. 10. Hyperlipidemia. 11. Hypertensive chronic kidney disease. 12. Spinal stenosis. DESCRIPTION: This 86-year-old female with a complex medical history as outlined above, started having some diarrhea stools several days ago. She has had some abdominal pain and cramping, went into the emergency room on 02/12 and ended up having a positive C. diff colitis. She had a CT scan of the abdomen and it does show some thickening of the colon, predominantly at the cecum, ascending, and transverse portions of the colon as well as the rectosigmoid colon. She was admitted at that time for further definitive care because of her multiple comorbid conditions. HOSPITAL COURSE: The patient was initially placed on p.o. metronidazole and actually did pretty well with that. She had a fair amount of cramping, and so we went from p.r.n. Bentyl to scheduled Bentyl and that really seemed to make a big difference. She was very concerned as she lives in [place] and has to come in for dialysis 3 times a week, so we are relatively cautious with her and got diarrhea under much better control. She only had 2 stools a day prior to discharge. On the morning of the , she was deemed ready for discharge. DISCHARGE INSTRUCTIONS: She needs a followup appointment in [facility] Cardiology in 2 weeks. She will follow up with me in 1 week. Her medications include: 1. Allopurinol 300 mg 1/2 p.o. daily. 2. Amlodipine 5 mg 1 p.o. daily. 3. Aspirin 81 mg 1 a day. 4. PhosLo 667 mg 3 times a day with meals. PATIENT'S NAME: MILLY ARANGO [facility] AGE: 86 Y [address] ROOM: [place] [address] LOCATION: [facility] ADMIT DATE: 02/14/2017 Discharge Summary DISCHARGE DATE: FAMILY PHYSICIAN: Allie Dominguez MD ATTENDING PHYSICIAN: Solo Van 5. Bentyl 20 mg every 6 hours p.r.n. 6. Benadryl 25 mg 3 days a week on dialysis days. 7. Flonase 1 spray in each nostril daily. 8. Gabapentin 100 mg at bedtime. 9. Melatonin 3 mg, 1.5 mg every nighttime which is a half of pill. 10. Metoprolol 50 mg 1/2 p.o. b.i.d., which is a dose change. 11. Protonix 40 mg 1 a day. 12. Simvastatin 20 mg 1 a day. 13. Aurora p.r.n. 14. Flagyl 500 mg t.i.d. for 7 days. 15. Tylenol Extra Strength p.r.n. 16. B complex vitamin 1 a day. 17. Restoril 15 mg at bedtime. She will call or return if she has any further problems or concerns. She voiced understanding of that plan. ALLIE DOMINGUEZ MD TAB/modl /[id number] d: 02/16/17 1008 t: 02/24/17 0623, DISCHARGE SUMMARY
--- NOTE | ~2017-02-12 | ER ---
PATIENT'S NAME: MILLY ARANGO [facility] AGE: 86 Y [address] ROOM: [place] [address] LOCATION: [facility] [place] ADMIT DATE: 02/12/2017 ER/Outpatient Report DISCHARGE DATE: FAMILY PHYSICIAN: Asa Dominguez MD ATTENDING PHYSICIAN: ADILENE VAN Time of Arrival: 0845 hours. Time of Evaluation: 0905 hours. CHIEF COMPLAINT: Diarrhea. HISTORY OF PRESENT ILLNESS: The patient is an 86-year-old female, who presents to the emergency department today with a chief complaint of diarrhea. The patient was recently admitted to the hospital for chest pain. She reports about 16 hours prior to arrival, the patient developed multiple episodes of diarrhea. She does have a history of some diarrhea in the past, but this is significantly worse. She complains of weakness. She does have a history of diverticulitis in the past. She reports some subjective fevers and chills as well as some nausea. No vomiting. Denies any blood in her stool. No dark tarry stools. She does have a crampy type abdominal pain. It is in her lower abdomen. It is worse with touch. It is mild in severity. PAST MEDICAL HISTORY: Acid reflux; GI bleed; hypothyroid; hypertension; renal failure; chronic kidney disease, on hemodialysis Monday, Monday, and Monday; gout; history of sigmoid colon perforation with diverticular disease. PAST SURGICAL HISTORY: Cholecystectomy, MRCP, ocular surgery for cataract, retinal detachment repair, partial thyroidectomy, EGD with active duodenal ulcer, parathyroidectomy, salpingo-oophorectomy, tonsillectomy, vitrectomy with detached retina. SOCIAL HISTORY: The patient denies any tobacco, alcohol, or illicit drug use. ALLERGIES: TO PENICILLIN, MACROLIDES, NITROFURANTOIN, QUINOLONE, CIPROFLOXACIN, CEFUROXIME, CLARITHROMYCIN, AMOXICILLIN, AND LEVAQUIN. MEDICATIONS: Please see list. PRIMARY CARE DOCTOR: PATIENT'S NAME: MILLY ARANGO [facility] AGE: 86 Y [address] ROOM: [place] [address] LOCATION: [facility] [place] ADMIT DATE: 02/12/2017 ER/Outpatient Report DISCHARGE DATE: FAMILY PHYSICIAN: Asa Dominguez MD ATTENDING PHYSICIAN: ADILENE VAN Dr.. REVIEW OF SYSTEMS: All systems are reviewed by myself and are negative with the exception of those discussed in the HPI and past medical history. PHYSICAL EXAMINATION: VITAL SIGNS: Weight 68.1 kg, blood pressure 121/70, pulse 70, respiratory rate 18, temperature 97.7, oxygen saturation 97% on room air. GENERAL: The patient is an 86-year-old female, who appears stated age, in mild acute distress. HEENT: Normocephalic, atraumatic. Pupils are equal, round, and reactive to light and accommodation. Extraocular motions are intact. Nares are patent bilaterally. TMs are clear. Oropharynx is clear. NECK: Supple. There is no nuchal rigidity. CARDIOVASCULAR: Regular rate and rhythm. LUNGS: Clear to auscultation bilaterally. No wheezes, rales, or rhonchi. ABDOMEN: Soft. Does have tenderness to palpation in bilateral lower abdominal. There is no rebound or rigidity. There is some voluntary guarding. MUSCULOSKELETAL: The patient moves all 4 extremities. SKIN: Warm and dry. LABORATORY DATA AND X-RAYS: Labs and x-rays are obtained. CBC: White blood cell count 12.5, otherwise normal. Lactate is 2.0. Procalcitonin 0.31. Venous blood gas: 7.36, 44, 25, 25, -0.8. CMP unremarkable except for BUN 45, creatinine 4.7. LFTs normal. Coags are normal. Urinalysis shows 100 leukocyte esterase, 25 blood, otherwise negative. Amylase and lipase are normal. Cardiac enzymes are normal. ProBNP is 8698. Occult blood is positive. Fecal wbc is negative. Giardia and Cryptosporidium are negative. The patient is positive for C. diff. A CT scan of the abdomen and pelvis is obtained. It does show colon diverticula, predominantly at the descending and sigmoid portions of the colon. There is wall thickening of the colon, predominantly at the cecum, ascending, and transverse portions of the colon along with the rectosigmoid colon reflecting possible colitis or diverticulitis. IMPRESSION: 1. Multiple episodes of diarrhea. 2. End-stage renal disease, on hemodialysis. 3. Occult blood positive. 4. Initial visit. PATIENT'S NAME: MILLY ARANGO [facility] AGE: 86 Y [address] ROOM: [address] [place], [place] [address] LOCATION: [facility] [place] ADMIT DATE: 02/12/2017 ER/Outpatient Report DISCHARGE DATE: FAMILY PHYSICIAN: Asa Dominguez MD ATTENDING PHYSICIAN: ADILENE VAN EMERGENCY DEPARTMENT COURSE: The patient was brought back to the examination room. Seen and evaluated by myself. IV is established. Laboratory analysis and imaging are obtained as described above. The patient was given a liter of normal saline IV. The results are obtained. I have discussed results with the patient. She was placed on Flagyl IV. The patient reports she continues to feel weak; however, she does feel slightly better. I have discussed the case with Dr. Van, who is on-call for the patient's primary care doctor, Dr. Dominguez. He does agree to accept the patient for further evaluation, treatment, and management. DISPOSITION: The patient is admitted under the care of Dr. Van in stable condition. DO THEE GUTIERRES/modl /[id number] d: 02/12/17 2231 t: 02/15/17 0640, OUTPATIENT REPORT
--- NOTE | ~2017-02-12 | CON ---
PATIENT'S NAME: MILLY ARANGO [facility] AGE: 86 Y [address] ROOM: [place] [address] LOCATION: [facility] [place] ADMIT DATE: 02/12/2017 Consultation DISCHARGE DATE: FAMILY PHYSICIAN: Asa Dominguez MD ATTENDING PHYSICIAN: ADILENE FUNG DATE OF CONSULTATION: 02/13/2017 REFERRING PHYSICIAN: Lucille Gibson This is a [facility] nephrology consultation. REASON FOR CONSULTATION: End-stage renal disease, need for hemodialysis therapy. HISTORY OF PRESENT ILLNESS: This is an 86-year-old female patient, who has a longstanding history of end- stage renal disease, on hemodialysis on Monday, Monday, and Monday at [facility]. The patient presented for admission with a chief complaint of diarrhea. The patient reports that she was in her usual state of health when she began experiencing diarrhea several days ago. She did note that she was having some lower abdominal cramping as well as abdominal pain. Her diarrhea continued to worsen, and she became weak. She, therefore, went to the Emergency Room for further evaluation and management. The patient was recently hospitalized last week after having an abrupt onset of chest pain. However, on this admission, the patient denies any current chest pain. Due to her history of hemodialysis as well as end-stage renal disease, Dr. Gibson has been asked to consult on the patient and manage her dialysis as inpatient. PAST MEDICAL HISTORY: As listed above, includin. End-stage renal disease. 2. History of hemodialysis. 3. History of lower GI bleed with acute blood loss anemia. 4. Secondary hyperparathyroidism. 5. GERD. 6. Osteoporosis. 7. Hyperlipidemia. 8. Vitamin D deficiency. 9. Renovascular hypertension. 10. History of thyroid cancer. 11. History of pancreatitis secondary to gallstones in the common bile duct. 12. Spinal stenosis. 13. Osteoarthritis. PATIENT'S NAME: MILLY ARANGO [facility] AGE: 86 Y [address] ROOM: [place] [address] LOCATION: [facility] [place] ADMIT DATE: 02/12/2017 Consultation DISCHARGE DATE: FAMILY PHYSICIAN: Asa Dominguez MD ATTENDING PHYSICIAN: ADILENE FUNG 14. Gout. 15. Current C. diff colitis. PAST SURGICAL HISTORY: 1. Cholecystectomy. 2. MRCP. 3. Ocular surgery for cataracts. 4. Retinal detachment repair. 5. Partial thyroidectomy. 6. EGD in 2011 with active duodenal ulcers. 7. Parathyroidectomy in 2013. 8. Salpingo-oophorectomy in the . 9. Tonsillectomy at the age of 13. 10. Vitrectomy for the detached retina in the . ALLERGIES: PENICILLIN, MACROLIDES, NITROFURANTOIN, QUINOLONES, PENICILLIN V, CIPROFLOXACIN, CEFUROXIME, CLARITHROMYCIN, AMOXICILLIN, AND LEVAQUIN. CURRENT HOME MEDICATIONS: 1. Tylenol 500 mg two tablets p.o. q.6 hours p.r.n. pain. 2. Allopurinol 150 mg p.o. daily. 3. B complex #20. 4. Folic acid one tablet daily. 5. Calcium acetate 667 mg one tablet p.o. t.i.d. 6. Fluticasone one spray in each nostril twice a day. 7. Gabapentin 100 mg p.o. daily at bedtime. 8. Melatonin 1.5 mg p.o. at bedtime. 9. Lopressor 50 mg twice a day. 10. Zocor 20 mg daily at bedtime. FAMILY HISTORY: Reviewed, and is significant for her mother having a history of colon cancer. Her father had a history of bleeding ulcer. Sister has a history of colon cancer and a brother also had liver cancer. SOCIAL HISTORY: The patient denies any illicit drug use, tobacco use, or alcohol use. REVIEW OF SYSTEMS: GENERAL: Positive for weakness. HEENT: Eyes, no double vision or blurred vision. Nose, no epistaxis or rhinorrhea. Mouth, no gingival bleeding. Throat, no sore throat or hoarseness or cough. RESPIRATORY: She denies wheezing or hemoptysis. PATIENT'S NAME: MILLY ARANGO [facility] AGE: 86 Y [address] ROOM: [address] [place] [id number] LOCATION: [facility] [place] ADMIT DATE: 02/12/2017 Consultation DISCHARGE DATE: FAMILY PHYSICIAN: Asa Dominguez MD ATTENDING PHYSICIAN: ADILENE FUNG CARDIOVASCULAR: She denies any chest pain. GASTROINTESTINAL: Positive for loss of appetite as well as nausea. GENITOURINARY: She does continue to make some urine despite hemodialysis. MUSCULOSKELETAL: She denies arthralgias or myalgias. ENDOCRINE: She denies history of diabetes. Positive for history of thyroid cancer. HEMATOLOGICAL: She denies bruising or easy bleeding. NEUROLOGICAL: She denies numbness and tingling in the upper or lower extremities. She denies balance or gait disturbances. PSYCHIATRIC: She denies depression or anxiety. However, in the more recent months, the patient does express some episodes of feeling down secondary to trouble with dialysis access. PHYSICAL EXAMINATION: VITAL SIGNS: Blood pressure is 111/53, heart rate is 90, respirations are 20, and temperature is 97.8. GENERAL: On exam, this is an elderly white female, who appears her approximate age. She is in a mild amount of distress. HEENT: Head: Normocephalic and atraumatic. Eyes: Pupils are equal, round, and reactive to light and accommodation. Nose: Midline. Mouth: No gingival bleeding. Throat: Without lymphadenopathy or carotid bruits. PULMONARY: Lungs sounds are diminished in the bases bilaterally. The patient is on room air. CARDIOVASCULAR: Regular rate and rhythm with a grade 2 to 3/6 systolic ejection murmur heard best at the right second intercostal space with radiation to the base of the carotids. ABDOMEN: Soft, nontender, and nondistended. Bowel sounds are positive. EXTREMITIES: Showed no signs of peripheral edema, clubbing, or cyanosis. NEUROLOGICAL: Cranial nerves II through XII are grossly intact. ASSESSMENT AND PLAN: 1. End-stage renal disease, on hemodialysis therapy. We will obtain the patient's outpatient clinical record and provide hemodialysis accordingly. The patient is currently running on a left upper extremity arteriovenous fistula that is relatively new. We will continue to monitor this. She does also have a tunneled catheter in her right chest that we will prepare for removal. 2. Renovascular hypertension. Blood pressures are stable. Continue current medications and further per Dr. Dominguez. 3. Hyperlipidemia. Continue Zocor. 4. Hyperphosphatemia. Continue PhosLo with food. 5. Clostridium difficile colitis. Continue Flagyl. Further per Dr. Dominguez. This patient has been seen and assessed by Dr. Gibson. Her care is being conducted in consultation with Dr. Gibson as well as me. We will plan further PATIENT'S NAME: MILLY ARANGO [facility] AGE: 86 Y [address] ROOM: [place] [address] LOCATION: [facility] [place] ADMIT DATE: 02/12/2017 Consultation DISCHARGE DATE: FAMILY PHYSICIAN: Asa Dominguez MD ATTENDING PHYSICIAN: ADILENE FUNG recommendations as they are forthcoming. In the interim, the patient is to continue her current hemodialysis prescription. Further recommendations will be forthcoming. LASHAWN N JOHNY MELVIN, [employer]ED [employer]SCUTTER FOR M MD BEATRIZ HECTOR/modl /[id number] d: 02/13/172035 t: 02/19/17 1042, CONSULTATION REPORT
--- NOTE | ~2017-02-12 | HP ---
PATIENT'S NAME: MILLY ARANGO [facility] AGE: 86 Y [address] ROOM: [address] [place], [place] [address] [place] [facility] [place] DATE: 02/12/2017 History & Physical DISCHARGE DATE: FAMILY PHYSICIAN: Asa Dominguez MD ATTENDING PHYSICIAN: ADILENE FUNG DATE OF SERVICE: CHIEF COMPLAINT: "I have diarrhea." HISTORY OF PRESENT ILLNESS: Ms. Arango is an 86-year-old female with a complex past medical history that includes stage 5 chronic kidney disease currently on dialysis, history of lower GI bleed, hyperparathyroidism, GERD, osteoporosis, hyperlipidemia, vitamin D deficiency, hypertension among several others, who presents as admission to the [facility] from the [facility] Emergency Department for diarrhea. The patient was in her usual state of health when she began experiencing diarrhea stools several days ago. She noted that she was having some abdominal pain and cramping. She continued to have worsening of her diarrhea and significant decrease in appetite. On the day prior to admission, she tried to eat a steak and baked potato, but could not hardly get any of it down. She had Jell-O the night before admission and really has not eaten anything on the day of admission. Because of weakness and all the diarrhea stools that she was having, she was brought to the emergency department for further evaluation and management. Upon reaching the emergency department, the patient was overall stable. She had blood pressure of 121/70, pulse 70, respirations 18, temperature 97.7, oxygen 97% on room air. She had a number of studies performed including C. diff, PCR that was positive. She had an O and P screen that was negative. She had a fecal occult blood that was positive. Procalcitonin was elevated at 0.31. Complete blood count showed elevated white blood cell count of 12.5, hemoglobin 11.2, hematocrit 33.4, platelets 238. CMS was normal except for calcium of 6.4, BUN 45, creatinine 4.7, albumin was low at 3.3. GFR was 9. She was started on some Flagyl in the emergency department and sent to the floor for further evaluation and management. Upon reaching the floor, the patient overall was feeling pretty good. She said that she has only had 1 diarrheal stool today. She was complaining of a little bit of an upset stomach. She otherwise denies fevers or chills. No headaches. She does endorse some vision changes, but states it is time to get new glasses. No chest pains or shortness of breath. No swallowing problems. No nausea or vomiting. No lower extremity swelling. No new skin rashes. No joint pains. Reports her mood is good. PATIENT'S NAME: MILLY ARANGO [facility] AGE: 86 Y [address] ROOM: [address] [place], [place] [address] [place] [facility] [place] DATE: 02/12/2017 History & Physical DISCHARGE DATE: FAMILY PHYSICIAN: Asa Dominguez MD ATTENDING PHYSICIAN: ADILENE FUNG MEDICATIONS: 1. Acetaminophen 1000 mg p.o. q.6 hours p.r.n. pain or fever. 2. Zyloprim 150 one tablet p.o. daily. 3. Amlodipine 5 mg 1 tablet p.o. q.a.m. daily. 4. Aspirin 81 mg 1 tablet p.o. daily. 5. Renal caps 1 cap p.o. daily. 6. PhosLo 1 cap 3 times daily with meals. 7. Bentyl 10 mg p.o. q.4 hours p.r.n. abdominal cramping. 8. Benadryl 25 mg p.o. 3 days a week on dialysis days. 9. Flonase 50 mcg 1 spray each nostril daily. 10. Neurontin 100 mg 1 tablet p.o. at bedtime. 11. Hydrocodone 5/325 one to two tablets p.o. q.4-6 hours p.r.n. 12. Melatonin 1.5 mg p.o. at bedtime. 13. Lopressor 50 mg 1 tablet p.o. b.i.d. 14. Protonix 40 mg 1 tablet p.o. daily before breakfast. 15. Zocor 20 mg 1 tablet p.o. at bedtime. 16. Temazepam 15 mg 1 at night p.o. p.r.n. insomnia. REVIEW OF SYSTEMS: Negative except for those noted in the HPI. PAST MEDICAL HISTORY: 1. Atrial fibrillation. 2. Chronic kidney disease, stage 5 requiring chronic dialysis. 3. Colon perforation 2014. 4. Duodenal ulcer 2011. 5. GERD. 6. Gout. 7. DVT history 2010. 8. Hyperlipidemia, mixed. 9. Hypertensive chronic kidney disease. 10. Osteoarthritis. 11. Constipation. 12. Primary hyperparathyroidism. 13. Restless leg syndrome. 14. Severe aortic stenosis. 15. Spinal stenosis. PAST SURGICAL HISTORY: 1. Abdominal hysterectomy in . 2. AV fistula placement in 2014. 3. Bladder surgery . 4. Cholecystectomy 1979. 5. Colonoscopy 2014. PATIENT'S NAME: MILLY ARANGO [facility] AGE: 86 Y [address] ROOM: [place] [address] [place] [facility] [place] DATE: 02/12/2017 History & Physical DISCHARGE DATE: FAMILY PHYSICIAN: Asa Dominguez MD ATTENDING PHYSICIAN: ADILENE FUNG 6. Declotting of the graft in 2016. 7. ERCP 2014. 8. Echo 2016. 9. EGD 2011. 10. Exploratory laparotomy. 11. Eye surgery 2006. 12. Parathyroidectomy in 2013. 13. Salpingo-oophorectomy in . 14. Sling operation in . 15. Thoracentesis in 2014. 16. Tonsillectomy. 17. Vitrectomy in the . SOCIAL HISTORY: The patient is retired. She has never used alcohol. She does use some caffeine. 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 She has never used tobacco. She has been since 2007. She lives by herself in [place]. She does have a daughter who comes and checks on her. Sadly, the patient does not have close contact with her son any longer and he has not spoken to her in over 6 years. FAMILY HISTORY: Mother of colorectal cancer in her 80s, sister had the same in her 60s and brother of hepatocellular carcinoma secondary to excess alcohol use. PHYSICAL EXAMINATION: VITAL SIGNS: Reviewed. GENERAL: A pleasant, elderly female, in no acute distress. HEENT: Head: Normocephalic, atraumatic. Eyes, conjunctivae clear. Sclerae white. ENT: Mucous membranes are moist. NECK: Supple. Trachea is midline. CHEST: There is a dialysis catheter port present in the right upper chest. HEART: Regular rate and rhythm with a grade 4/6 systolic ejection murmur best heard at the right upper sternal border. ABDOMEN: Soft. There is tenderness to palpation on the left upper and epigastric regions. No rebound, rigidity or guarding. EXTREMITIES: Warm and well perfused. No clubbing, cyanosis, or edema. SKIN: There are no significant acute appearing rashes. NEUROLOGIC: Cranial nerves 2 through 12 grossly intact. No focal deficits on exam. LABORATORY DATA AND X-RAY: As per HPI. IMPRESSION AND PLAN: An 86-year-old female with Clostridium difficile colitis on CT scan: PATIENT'S NAME: MILLY ARANGO [facility] AGE: 86 Y [address] ROOM: [place] [address] [place] [facility] [place]MIT DATE: 02/12/2017 History & Physical DISCHARGE DATE: FAMILY PHYSICIAN: Asa Dominguez MD ATTENDING PHYSICIAN: ADILENE FUNG 1. Colitis secondary to clostridium difficile. The patient does have evidence of colitis on her CT scan with possible diverticulitis though clinically it would make the most sense for her to actually have just C. diff. She does not have significant tenderness to palpation over left lower quadrant. Guideline parameters for severe C. diff infection include a white blood cell count greater than 15,000, serum albumin of less than 3 and serum creatinine level of greater than 1.5 times premorbid level. The patient actually only has an elevated creatinine which is due to her chronic kidney disease. Therefore, I do not feel that she meets the criteria for severe CDI at this time. I would like to just proceed ideally with IV metronidazole. However due to her poor vascular access and inability to get a hold of Dr. Churchill to see if we could use her dialysis catheter, we will go ahead with oral antibiotics tonight. She has only had 1 stool out today. We will go ahead and let her have a full liquid diet. If she tolerates that well, we can advance as tolerated. I would really like to see how she does with that prior to any significant advancement in her diet. Overall though her blood counts do appear to be not overly concerning at this time though given her potential for significant issues, we will closely monitor her. 2. Chronic kidney disease, stage 5 currently on hemodialysis. I have consulted Nephrology for getting her started on her Monday, Monday, Monday dialysis. 3. Hypertension. Continue with home medications. 4. History of gout. Continue with home medications. 5. Osteoarthritis. Continue with pain medications. 6. Gastroesophageal reflux disease. Continue with home medication. 7. Mixed dyslipidemia. Continue with home medications. 8. Insomnia. Continue with the patient's home medications. 9. Fluids: Unable to get fluids due to the patient's lack of good vascular access. 10. Electrolytes: Stable. Continue to monitor. 11. Nutrition: We will have her on a full liquid diet and then we will proceed with renal diet after that. 12. Code status: I did discuss with the patient meeting with code status which she wishes to be a full code. She did discuss with me that she would like to have us "gave it a good try" for "a while" but if there is no significant chance for recovery then she would want us to discontinue. 13. Disposition: To my knowledge, Dr. Dominguez is in town. I will have him assume her care in the morning. Should he be unavailable, I will follow the patient throughout her hospitalization. ADILENE FUNG MD PATIENT'S NAME: MILLY ARANGO [facility] AGE: 86 Y [address] ROOM: [address] [address] [place] [facility] [place] DATE: 02/12/2017 History & Physical DISCHARGE DATE: FAMILY PHYSICIAN: Asa Dominguez MD ATTENDING PHYSICIAN: ADILENE FUNG/jannethl /[id number] D: [id number] T: [id number] HISTORY & PHYSICAL
[~2017-02-12 08:45] MED LIST changes: +ASPIRIN (CHILDR81 MG PO
[2017-02-12 10:04] LABS: BICARBONATE 24.9 mmol/L (18.0-23.0); PCO2 44 mmHg (35-45)
[2017-02-12 10:05] LABS: BASOPHIL % 0.3 %; EOSINOPHIL # 0.1 K/uL (0.0-0.5); HEMATOCRIT 33.4 % (30.0-46.0); HEMOGLOBIN 11.2 g/dL (10.0-15.0); IMMATURE GRANULOCYTE % 0.3 %; LYMPHOCYTE # 1.7 K/uL (0.8-4.0); LYMPHOCYTE % 13.5 %; MCH 32.5 pg (27.0-34.0); MCHC 33.5 gm/dL (32.0-36.5); MCV 96.8 fl (83.0-98.0); MONOCYTE # 1.1 K/uL (0.0-1.0); MONOCYTE % 8.9 %; MPV 8.8 fl (9.4-12.4); NEUTROPHIL # (ANC) 9.5 K/uL (1.8-7.8); NRBC % 0 /100WBC (0-0.00); PLATELET COUNT 238 K/uL (150-450); RBC 3.45 M/uL (3.00-5.00); RDW-CV 14.3 % (11.9-14.6); WBC 12.5 K/uL (4.0-11.0)
[2017-02-12 10:06] LABS: PO2 25 mmHg (80-90)
[2017-02-12 10:08] LABS: COLOR URINE YELLOW (YELLOW); GLUCOSE URINE NEGATIVE (NEGATIVE); KETONE URINE NEGATIVE (NEGATIVE); LEUKOCYTES URINE 100 /UL (NEGATIVE); NITRITE URINE NEGATIVE (NEGATIVE); PROTEIN URINE 100 mg/dL (NEGATIVE); SPEC GRAVITY URINE 1.005 (1.003-1.035); TURBIDITY URINE CLEAR (CLEAR); UROBILINOGEN URINE NORMAL (NORMAL)
[2017-02-12 10:09] LABS: BILIRUBIN URINE NEGATIVE (NEGATIVE); BLOOD URINE 25 /UL (NEGATIVE)
[2017-02-12 10:10] LABS: BACTERIA URINE RARE (NEGATIVE); EPITHELIAL URINE RARE #/HPF (NEGATIVE); RBC URINE RARE #/HPF (NEGATIVE); WBC URINE 0-2 #/HPF (NEGATIVE)
[2017-02-12 10:29] LABS: ALBUMIN 3.3 gm/dL (3.5-5.0); ALK PHOS 73 IU/L (33-138); ALT 16 IU/L (12-78); BLOOD UREA NITROGEN 45 mg/dL (6-24); CHLORIDE 103 mMol/L (96-110); CO2 23 mMol/L (22-32); CPK 68 IU/L (21-215); SODIUM 139 mMol/L (135-145); TOTAL PROTEIN 6.8 g/dL (6.0-8.4)
[2017-02-12 10:30] LABS: ANION GAP 17.5 (10.0-19.0); AST 18 IU/L (10-40); CALCIUM 6.4 mg/dL (8.5-10.5); CREATININE 4.7 mg/dL (0.5-1.1); ESTIMATED GFR (MDRD EQUATION) 9; POTASSIUM 4.5 mMol/L (3.7-5.1); TOTAL BILIRUBIN 0.7 mg/dL (0.0-1.5)
[2017-02-12 10:36] LABS: INR - (THERAPEUTIC) 0.96 (0.92-1.07); PROTIME 10.1 SECONDS (9.8-11.4); PTT 23 SECONDS (25-32)
[2017-02-13 06:01] LABS: BASOPHIL % 0.4 %; EOSINOPHIL # 0.3 K/uL (0.0-0.5); EOSINOPHIL % 2.5 %; HEMATOCRIT 28.3 % (30.0-46.0); HEMOGLOBIN 9.6 g/dL (10.0-15.0); IMMATURE GRANULOCYTE % 0.3 %; LYMPHOCYTE # 1.8 K/uL (0.8-4.0); LYMPHOCYTE % 17.3 %; MCH 32.3 pg (27.0-34.0); MCHC 33.9 gm/dL (32.0-36.5); MCV 95.3 fl (83.0-98.0); MONOCYTE % 9.2 %; MPV 9.3 fl (9.4-12.4); NEUTROPHIL # (ANC) 7.3 K/uL (1.8-7.8); NEUTROPHIL % 70.3 %; NRBC % 0 /100WBC (0-0.00); PLATELET COUNT 220 K/uL (150-450); RBC 2.97 M/uL (3.00-5.00); RDW-CV 14.2 % (11.9-14.6); WBC 10.4 K/uL (4.0-11.0)
[2017-02-13 06:15] LABS: ANION GAP 14.6 (10.0-19.0); POTASSIUM 4.6 mMol/L (3.7-5.1)
[2017-02-13 06:16] LABS: CALCIUM 6.1 mg/dL (8.5-10.5); CREATININE 5.3 mg/dL (0.5-1.1)
[2017-02-13 22:08] LABS: BILIRUBIN URINE NEGATIVE (NEGATIVE); BLOOD URINE 25 /UL (NEGATIVE); COLOR URINE YELLOW (YELLOW); GLUCOSE URINE NEGATIVE (NEGATIVE); KETONE URINE NEGATIVE (NEGATIVE); LEUKOCYTES URINE 100 /UL (NEGATIVE); NITRITE URINE NEGATIVE (NEGATIVE); PROTEIN URINE 100 mg/dL (NEGATIVE); TURBIDITY URINE CLEAR (CLEAR); UROBILINOGEN URINE NORMAL (NORMAL)
[2017-02-13 22:30] LABS: RBC URINE 0-2 #/HPF (NEGATIVE)
[2017-02-13 22:31] LABS: BACTERIA URINE FEW (NEGATIVE)
[2017-02-14 11:09] LABS: ALBUMIN 2.9 gm/dL (3.5-5.0); ANION GAP 13.2 (10.0-19.0); CREATININE 3.5 mg/dL (0.5-1.1); PHOSPHORUS 2.5 mg/dL (2.5-4.9); POTASSIUM 4.2 mMol/L (3.7-5.1)
[2017-02-14 11:11] LABS: CALCIUM 6.8 mg/dL (8.5-10.5)
[2017-02-15 06:06] LABS: ALBUMIN 2.9 gm/dL (3.5-5.0); ANION GAP 13.2 (10.0-19.0); PHOSPHORUS 2.4 mg/dL (2.5-4.9); POTASSIUM 4.2 mMol/L (3.7-5.1)
[2017-02-15 06:10] LABS: CREATININE 4.4 mg/dL (0.5-1.1)
[2017-02-16] MEDS ORDERED: FLAGYL500 MG PO (08:41)
[2017-02-28] MEDS ORDERED: VANCOMYCIN PO (08:13)
== END 2017-02-16 14:10 | disposition disaster alternative care site (69) | DRG 371 ==
LOC: GMED 08:45 → GMSU 13:11
PROVIDERS: Emergency Medicine; Family Medicine; Nurse Practitioner; ADMIT Family Medicine
PROC: 5A1D00Z (ICD-10-PCS; principal; 2017-02-15)
DX: A04.7 Enterocolitis due to Clostridium difficile (principal); N18.6 End stage renal disease; I12.0 Hypertensive chronic kidney disease with stage 5 chronic kidney disease or end stage renal disease; I48.91 Unspecified atrial fibrillation; K57.92 Diverticulitis of intestine, part unspecified, without perforation or abscess without bleeding; G25.81 Restless legs syndrome; E55.9 Vitamin D deficiency, unspecified; E21.0 Primary hyperparathyroidism; Z99.2 Dependence on renal dialysis; E78.5 Hyperlipidemia, unspecified; K21.9 Gastro-esophageal reflux disease without esophagitis; M19.90 Unspecified osteoarthritis, unspecified site; Z79.01 Long term (current) use of anticoagulants; Z86.718 Personal history of other venous thrombosis and embolism; G47.00 Insomnia, unspecified; Z85.850 Personal history of malignant neoplasm of thyroid; Z88.8 Allergy status to other drugs, medicaments and biological substances
CPT/HCPCS: A9270; G0378; G8978; G8979; G8980; G8984; G8985; G8986; J0610; J1644; J1650; J2001; J2405; J7030; J7040; J7050; Q9967

== ENCOUNTER 2017-02-27 05:21 | Emergency (ER) | payer MEDICARE, MEDICAID ==
--- NOTE | ~2017-02-27 | ER ---
PATIENT'S [facility]: [facility] AGE: 86 Y [address] ROOM: [place] [address] LOCATION: ED ADMIT DATE: 02/27/2017 ER/Outpatient Report DISCHARGE DATE: 02/27/2017 FAMILY PHYSICIAN: , Unknown ATTENDING PHYSICIAN: Navneet Galeana TIME OF ARRIVAL: 0520 hours. TIME OF EVALUATION: 0520 hours. CHIEF COMPLAINT: Left wrist pain. HISTORY OF PRESENT ILLNESS: The patient is an 86-year-old female who presents to the emergency department today with a chief complaint of left wrist pain. She had swelling. It is a sharp pain. Denies any fevers or chills. No nausea or vomiting. It is sharp, 10/10 in severity. PAST MEDICAL HISTORY: Stage IV kidney cancer, on hemodialysis; hypertension; gastroesophageal reflux disease; osteoporosis; dyslipidemia; atrial fibrillation; hyperparathyroidism. PAST SURGICAL HISTORY: Hysterectomy, AV fistula, tonsillectomy, bladder, cholecystectomy, ERCP. SOCIAL HISTORY: The patient denies any tobacco, alcohol, or illicit drug use. ALLERGIES: PLEASE SEE LIST. MEDICATIONS: Please see list. PRIMARY CARE DOCTOR: Dr. Dominguez. REVIEW OF SYSTEMS: All systems are reviewed by myself and are negative with the exception of those discussed in the HPI and past medical history. PHYSICAL EXAMINATION: [facility] AGE: 86 Y [address] ROOM: [place] [address] LOCATION: [facility] ADMIT DATE: 02/27/2017 ER/Outpatient Report DISCHARGE DATE: 02/27/2017 FAMILY PHYSICIAN: Physician, Unknown ATTENDING PHYSICIAN: Navneet Galeana VITAL SIGNS: Weight 69.8 kg, blood pressure 139/59, pulse 79, respiratory rate 16, temperature 91.4, oxygen saturation 98% on room air. GENERAL: The patient is an 86-year-old female, who appears stated age, in no acute distress. HEENT: Normocephalic, atraumatic. Pupils are equal, round, and reactive to light. NECK: Supple. There is no nuchal rigidity. CARDIOVASCULAR: Regular rate and rhythm. Positive murmur. LUNGS: Clear to auscultation. ABDOMEN: Soft, nontender, and nondistended. MUSCULOSKELETAL: The patient has a mass on the left wrist. It is painful to palpation. SKIN: Warm and dry. LABORATORY DATA AND X-RAYS: Pending. IMPRESSION: 1. Left wrist pain. 2. Please see Dr. Lozano's dictation. EMERGENCY DEPARTMENT COURSE: The patient was brought back to the examination room. Seen and evaluated by myself. The patient does have left wrist pain. She denies any fall or trauma. I have discussed the case with Dr. Lozano at shift change. He will follow up on x-ray. Please see his dictation. Further disposition per Dr. Lozano. DO THEE GUTIERRES/tiki /[id number] d: 02/27/172012 t: 03/02/17 0633, OUTPATIENT REPORT
--- NOTE | ~2017-02-27 | ER ---
PATIENT'S NAME: MILLY ARANGO [facility] AGE: 86 Y [address] ROOM: [place] [address] LOCATION: ED ADMIT DATE: 02/27/2017 ER/Outpatient Report DISCHARGE DATE: 02/27/2017 FAMILY PHYSICIAN: Physician, Unknown ATTENDING PHYSICIAN: Navneet Galeana CHIEF COMPLAINT: Left wrist pain. HISTORY OF PRESENT ILLNESS: Mr. Arango arrives by ambulance for evaluation of left wrist pain. It started in the middle of the night. Her usual home medication, which she does not recall, has not made it feel better. 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 She denies any recent injuries, falls, or skin abnormalities of that region. She is dialysis dependent and is scheduled to dialyze today. She has no other acute concerns today and denies fevers, chills, chest pain, nausea, vomiting, constipation, diarrhea, or dysuria. PAST MEDICAL HISTORY: Documented on the record and reviewed by me. SOCIAL HISTORY: Documented on the record and reviewed by me. MEDICATIONS: Documented on the record and reviewed by me. ALLERGIES: DOCUMENTED ON THE RECORD AND REVIEWED BY ME. REVIEW OF SYSTEMS: All systems are reviewed and are negative except as noted in the HPI. PHYSICAL EXAMINATION: VITAL SIGNS: Blood pressure 139/59, pulse 79, respiratory rate 16, temperature 91.4, and SpO2 is 98% on room air. Pain is rated at 10/10. GENERAL: An age appropriate female, sitting in a semirecumbent on the exam table, in no apparent pain or distress. NEUROLOGIC: Awake and alert. GCS is 15. No focal deficits. No asymmetry other than in the left hand secondary to pain. HEENT: Normocephalic, atraumatic. Eyes are PERRL. Oropharynx is clear. NECK: Supple. Trachea is midline. CHEST/HEART: Regular rate and rhythm with no murmurs. PATIENT'S NAME: MILLY ARANGO [facility] AGE: 86 Y [address] ROOM: [place] [address] LOCATION: ED ADMIT DATE: 02/27/2017 ER/Outpatient Report DISCHARGE DATE: 02/27/2017 FAMILY PHYSICIAN: Physician, Unknown ATTENDING PHYSICIAN: Navneet Galeana LUNGS: Clear to auscultation bilateral. ABDOMEN: Soft, nontender, and nondistended, otherwise benign. BACK: Normal to inspection and palpation. No acute abnormalities. EXTREMITIES: Right upper extremity does have an AV fistula. Left upper extremity is notable for what appears to be a ganglion cyst over the dorsum of the wrist. She is exquisitely tender proximal to that and distal to that, but not particularly on the cyst. The ulnar styloid is slightly tender, out of proportion to the remainder of the exam, although it is not focally tender, as consistent with possible fracture. The hand is otherwise neurovascularly intact. She does of note have loss of the ability to extend the left ring finger, which she states is chronic. SKIN: Appears to be grossly intact as noted above. LABORATORY DATA AND X-RAYS: Plain films of the wrist do not reveal any significant abnormalities other than possible ulnar styloid fracture of unclear chronicity. Labs: White count is 10.6, hemoglobin is 9.2, platelets of 226. ESR is 57. CRP is 3.1. CMS with no electrolyte abnormalities. Creatinine is 5.0. GFR is 7. No significant LFT abnormalities as well. IMPRESSION: Left wrist pain, unclear etiology with possible ulnar styloid fracture. EMERGENCY DEPARTMENT COURSE: The patient was seen and evaluated as above. She was given 2 doses of 0.5 mg Dilaudid and 50 mcg of fentanyl and prednisone and Toradol with minimal improvement in her symptoms. I discussed this case at length with Dr. Dominguez, the patient's primary care physician, over the course of 2 separate phone calls. At this time, the patient does not meet admission criteria. She also needs to go to dialysis. I think it is in her best interest to try an outpatient evaluation with some pain medication and dialysis and follow up with Dr. Dominguez. Dr. Dominguez said he would see her this evening after dialysis if she was not feeling better. The patient may also return to the emergency department if not improving after dialysis. I talked at length about the risks and benefits of using a narcotic pain medication for this issue. She stated she understood. The daughter was there as well. I also discussed the use of Toradol with this patient with Dr. Lam, geriatric psychiatrist, and he stated that it would be acceptable as long as she got some steroids. The patient was discharged with [place] and senna prescriptions and instructed to follow up with Dr. Dominguez if needed. We will try to get her in to see Dr. Allen as soon as possible for her previously scheduled visit for the other hand. The patient is also supposed to have surgery tomorrow by Dr. Churchill to revise her graft. All questions were answered, and the patient was discharged in stable condition with improved symptoms and a cock-up wrist splint for the patient's comfort. Ice as needed otherwise. PATIENT'S NAME: MILLY ARANGO [facility] AGE: 86 Y [address] ROOM: [place] [address] LOCATION: [facility] ADMIT DATE: 02/27/2017 ER/Outpatient Report DISCHARGE DATE: 02/27/2017 FAMILY PHYSICIAN: Physician, Unknown ATTENDING PHYSICIAN: Navneet Galeana MD GENEVIEVE CLEMENT/tiki /[id number] d: 02/27/171956 t: 03/04/17730, OUTPATIENT REPORT
[~2017-02-27 05:21] MED LIST changes: +FLAGYL500 MG PO
[2017-02-27 07:34] LABS: BASOPHIL # 0.1 K/uL (0.0-0.2); BASOPHIL % 0.5 %; EOSINOPHIL # 0.2 K/uL (0.0-0.5); EOSINOPHIL % 1.7 %; HEMATOCRIT 27.1 % (30.0-46.0); HEMOGLOBIN 9.2 g/dL (10.0-15.0); IMMATURE GRANULOCYTE % 0.2 %; LYMPHOCYTE # 1.7 K/uL (0.8-4.0); LYMPHOCYTE % 16.2 %; MCH 32.4 pg (27.0-34.0); MCHC 33.9 gm/dL (32.0-36.5); MCV 95.4 fl (83.0-98.0); MONOCYTE # 1.2 K/uL (0.0-1.0); MONOCYTE % 11.4 %; MPV 8.6 fl (9.4-12.4); NEUTROPHIL # (ANC) 7.4 K/uL (1.8-7.8); NRBC % 0 /100WBC (0-0.00); PLATELET COUNT 226 K/uL (150-450); RBC 2.84 M/uL (3.00-5.00); RDW-CV 14.7 % (11.9-14.6); WBC 10.6 K/uL (4.0-11.0)
[2017-02-27 07:50] LABS: ANION GAP 13.2 (10.0-19.0); POTASSIUM 4.2 mMol/L (3.7-5.1); TOTAL PROTEIN 6.3 g/dL (6.0-8.4)
[2017-02-27 07:52] LABS: CALCIUM 6.8 mg/dL (8.5-10.5); TOTAL BILIRUBIN 0.5 mg/dL (0.0-1.5)
[2017-02-28] MEDS ORDERED: VANCOMYCIN PO (08:13)
== END 2017-02-27 11:58 | disposition disaster alternative care site (69) ==
LOC: GMED 05:21
PROVIDERS: Emergency Medicine
PROC: 2W3FX1Z Immobilization of Left Hand using Splint (ICD-10-PCS; principal; 2017-02-27)
DX: M25.532 Pain in left wrist (principal); K21.9 Gastro-esophageal reflux disease without esophagitis; C64.9 Malignant neoplasm of unspecified kidney, except renal pelvis; I10 Essential (primary) hypertension; M81.0 Age-related osteoporosis without current pathological fracture; E78.5 Hyperlipidemia, unspecified; I48.91 Unspecified atrial fibrillation; E21.3 Hyperparathyroidism, unspecified; Z90.710 Acquired absence of both cervix and uterus; Z90.89 Acquired absence of other organs; Z99.2 Dependence on renal dialysis; Z90.49 Acquired absence of other specified parts of digestive tract; Z88.0 Allergy status to penicillin; Z88.1 Allergy status to other antibiotic agents; Z88.8 Allergy status to other drugs, medicaments and biological substances; Z79.82 Long term (current) use of aspirin; Z79.899 Other long term (current) drug therapy
CPT/HCPCS: J1170; J1885; J2930; J3010

== ENCOUNTER → 2017-02-28 | Day surgery (SDC) | payer MEDICARE, MEDICAID ==
[~2017-02-28] VITALS: Ht 149.9 cm; Wt 66.8 kg
[~2017-02-28] MED LIST changes: +ASPIRIN LO-DOSE81 MG PO; +DULCOLAX10 MG R; +FLORASTOR250 MG PO; +LOMOTIL1 TAB PO; +LOVENOX 3030 MG/0.3 SUB-Q; +MILK OF MA400 MG/5 M PO; +NUCYNTA50 MG PO; +THERAGRAN-M1 TAB PO; +VANCOMYCIN IV; +VANCOMYCIN PO; +WOMEN'S DAILY1 EAC1 PO
--- NOTE | ~2017-02-28 | OR ---
PATIENT'S NAME: MILLY ARANGO [facility] AGE: 86 Y [address] ROOM: [place] [address] [place] [facility] [place]: 02/28/2017 OR/Procedure Report DISCHARGE DATE: FAMILY PHYSICIAN: Asa Dominguez MD ATTENDING PHYSICIAN: FRITZ CHURCHILL SURGEON: Fritz Churchill MD ATHLETICS DIRECTOR: DATE OF PROCEDURE: 02/28/2017 PREOPERATIVE DIAGNOSIS: End-stage renal disease. POSTOPERATIVE DIAGNOSIS: End-stage renal disease. PROCEDURE: Revision of right arm AV fistula with new AV graft. SPINDRAW OPERATOR: JESSICA Jensen. ANESTHESIA: General. ESTIMATED BLOOD LOSS: 10 mL. OPERATIVE FINDINGS: Good thrill and bruit in the axillary vein at the end of the case. DESCRIPTION OF PROCEDURE: The patient was brought to the operating room, placed supine on the operating table, placed under general anesthesia, prepped and draped in a sterile manner. Preoperative time-out was performed. The patient received preoperative antibiotics. We made an incision 2 cm proximal to the antecubital fossa, dissected down the fascia, incised the fascia in a longitudinal manner, dissected out previous arteriovenous anastomosis. Dissected the outflow vein in a 360-degree fashion. We then made a vertical incision in the right axilla, dissected down the fascia, incised the fascia in a longitudinal manner, dissected out the axillary vein. We then tunneled a 4 x 7 Acuseal ready to use graft from the axillary incision to the antecubital fossa of the incision. We then gave 5000 heparin, we clamped proximally on the outflow vein tract vein. We then suture ligated distally. We then transected. We then did a standard 6-0 Prolene anastomosis from the outflow vein to the graft, removed the clamp and there was excellent flow into the graft. We placed a clamp back on the outflow vein. We then clamped proximally and distally on the vein, made a venotomy inside the 7 mm, did a standard 6-0 Prolene anastomosis from the graft to the vein. We removed the clamps. There was excellent flow into the axillary vein which was confirmed using Doppler. There was a strong radial and ulnar signal. Deep layers were closed with 2-0 and 3-0 Vicryl. Skin was closed with interrupted 4-0 nylon. PATIENT'S NAME: MILLY ARANGO [facility] AGE: 86 Y [address] ROOM: [place] [address] [place] [facility] [facility] [place]: 02/28/2017 OR/Procedure Report DISCHARGE DATE: FAMILY PHYSICIAN: Asa Dominguez MD ATTENDING PHYSICIAN: FRITZ CHURCHILL The patient tolerated the procedure well and transferred to recovery room and then home later that day. FRITZ CHURCHILL MD FKM/modl /[id number] d: 02/28/17 1419 t: 03/06/17 181, OPERATIVE SUMMARY
[2017-02-28 08:56] LABS: BASOPHIL % 0.1 %; HEMATOCRIT 27.6 % (30.0-46.0); HEMOGLOBIN 9.4 g/dL (10.0-15.0); IMMATURE GRANULOCYTE # 0.1 K/uL (0.0-0.3); IMMATURE GRANULOCYTE % 0.7 %; LYMPHOCYTE % 11.3 %; MCH 32.4 pg (27.0-34.0); MCHC 34.1 gm/dL (32.0-36.5); MCV 95.2 fl (83.0-98.0); MONOCYTE # 1.1 K/uL (0.0-1.0); MONOCYTE % 12.5 %; NEUTROPHIL # (ANC) 6.6 K/uL (1.8-7.8); NEUTROPHIL % 75.4 %; NRBC % 0 /100WBC (0-0.00); PLATELET COUNT 254 K/uL (150-450); RDW-CV 14.6 % (11.9-14.6); WBC 8.7 K/uL (4.0-11.0)
[2017-02-28 09:14] LABS: ALBUMIN 2.9 gm/dL (3.5-5.0); ANION GAP 14.1 (10.0-19.0); CREATININE 3.2 mg/dL (0.5-1.1); POTASSIUM 4.1 mMol/L (3.7-5.1); TOTAL BILIRUBIN 0.5 mg/dL (0.0-1.5); TOTAL PROTEIN 6.5 g/dL (6.0-8.4)
[2017-02-28 09:15] LABS: CALCIUM 7.2 mg/dL (8.5-10.5)
== END | disposition disaster alternative care site (69) ==
LOC: GPOC 02-27 08:00 → GSDC 07:00 → GPOC 03-01 10:00
PROVIDERS: Surgery Vascular Surgery
PROC: 05WY07Z Revision of Autologous Tissue Substitute in Upper Vein, Open Approach (ICD-10-PCS; principal; 2017-02-28)
DX: I12.0 Hypertensive chronic kidney disease with stage 5 chronic kidney disease or end stage renal disease (principal); N18.6 End stage renal disease; G43.909 Migraine, unspecified, not intractable, without status migrainosus; M19.90 Unspecified osteoarthritis, unspecified site; M81.0 Age-related osteoporosis without current pathological fracture; E21.0 Primary hyperparathyroidism; K21.9 Gastro-esophageal reflux disease without esophagitis; E78.00 Pure hypercholesterolemia, unspecified; I48.91 Unspecified atrial fibrillation; E78.2 Mixed hyperlipidemia; Z99.2 Dependence on renal dialysis; Z98.890 Other specified postprocedural states; Z90.710 Acquired absence of both cervix and uterus; Z90.49 Acquired absence of other specified parts of digestive tract; Z79.82 Long term (current) use of aspirin; Z79.899 Other long term (current) drug therapy; Z88.1 Allergy status to other antibiotic agents; Z88.0 Allergy status to penicillin
CPT/HCPCS: C1768; J1644; J2001; J2720; J3010; J7030

== ENCOUNTER 2017-03-16 16:13 | Inpatient (IN) | payer MEDICARE, MEDICAID ==
[~2017-03-16] VITALS: Ht 149.9 cm; Wt 65.3 kg
--- NOTE | ~2017-03-16 | ER ---
PATIENT'S NAME: MILLY ARANGO [facility] AGE: 86 Y [address] ROOM: [place] [address] LOCATION: [facility] ADMIT DATE: 03/16/2017 ER/Outpatient Report DISCHARGE DATE: FAMILY PHYSICIAN: Asa Dominguez MD ATTENDING PHYSICIAN: Lorraine Carroll Time of Arrival: 1610 hours. Time of Exam: 1610 hours. CHIEF COMPLAINT: Left hip pain. HISTORY OF PRESENT ILLNESS: The patient was getting out of a vehicle, lifted up her left leg, felt a pop in her leg, and instantly had pain in her left hip area. States she was able to just sit in a wheelchair, did not actually fall, did not cause any kind of injury elsewhere, incident happened approximately a half hour prior to arrival. She did arrive per [facility]. ALLERGIES: ON THE CHART AND REVIEWED BY ME. MEDICATIONS: On the chart and reviewed by me. PAST MEDICAL HISTORY: Atrial fib; chronic kidney disease, requiring dialysis; GERD; DVT in 2010; hyperlipidemia; osteoarthritis; hyperparathyroidism; restless legs syndrome; aortic stenosis; spinal stenosis; and hypertension. PAST SURGERIES: Abdominal hysterectomy, bladder surgery, cholecystectomy, and colonoscopy. She had a right AV fistula revision with a new graft done in February of 2017. She has a graft of the left arm, but is nonfunctioning. She has also had eye surgery, parathyroidectomy, and tonsillectomy. SOCIAL HISTORY: She lives at home. Denies use of tobacco, drugs, or alcohol. REVIEW OF SYSTEMS: All negative other than those mentioned in the HPI. PHYSICAL EXAMINATION: VITAL SIGNS: Blood pressure was 134/81, pulse of 82, respirations 26, temperature of 98.5 tympanic, and O2 saturation is 100% on room air. PATIENT'S NAME: MILLY ARANGO [facility] AGE: 86 Y [address] ROOM: [place] [address] LOCATION: [facility] ADMIT DATE: 03/16/2017 ER/Outpatient Report DISCHARGE DATE: FAMILY PHYSICIAN: Asa Dominguez MD ATTENDING PHYSICIAN: Lorraine Carroll GENERAL: She is awake, alert, and oriented x4. SKIN: [place], warm, and dry. RESPIRATIONS: Even and nonlabored. Lung sounds are clear throughout. HEART: Regular rate and rhythm. ABDOMEN: Soft, nondistended. Bowel sounds are present. EXTREMITIES: She is tender in the left hip, left upper leg area. She has strong pedal pulses. Her left leg is shortened. EMERGENCY ROOM COURSE: X-ray was completed, it shows a left subcapital femur neck fracture, that is 100% displaced, it was reviewed with Dr. Galeana. Chest X-Ray shows no acute process. CBC: white count is 17.2, hemoglobin is 11.2, hematocrit 34.1. Chem Panel: Sodium 138, potassium 3.4, chloride 101, BUN 22 with creatinine of 3.5. I did contact Dr. Allen, as that was her preference for Orthopedics and then I contacted Dr. Carroll who is retail operations manager for Dr. Dominguez. The patient to be admitted. Patient was given Fentanyl 25mcg IM initially. IV was able to get started. Fentanyl was repeated at 25mcg IV. IV did infiltrate and due to fistulas another one was not able to get started. IMPRESSION: Left hip fracture. PLAN: Admit the patient to Dr. Carroll for Dr. Dominguez and Dr. Allen. The patient is aware of plan of care. The patient's daughter was contacted and is aware of patient's status. PANCHO GARCIA APRN FOR DO GURVINDER GUTIERRES/jannethl /[id number] d: 03/16/17 2216 t: 03/31/17 1110, OUTPATIENT REPORT
--- NOTE | ~2017-03-16 | DS ---
PATIENT'S NAME: MILLY ARANGO [facility] AGE: 86 Y [address] ROOM: [address] [place], [place] [address] LOCATION: [facility] ADMIT DATE: 03/16/2017 Discharge Summary DISCHARGE DATE: 03/23/2017 FAMILY PHYSICIAN: Allie Dominguez MD ATTENDING PHYSICIAN: Lorraine Carroll FINAL DIAGNOSES: 1. Left hip fracture. 2. Stage 5 chronic kidney disease on dialysis. 3. Atrial fibrillation, which is rate-controlled. 4. Severe aortic stenosis by echo. 5. Hypertension. 6. History of asthma. 7. History of gout. 8. History of upper extremity deep vein thrombosis. 9. Urinary tract infection, secondary to E. coli. REASON FOR ADMIT: This 86-year-old female who was admitted by my partner Dr. Carroll on the day of admit. She was getting out of her vehicle about 4 p.m. today when she felt a painful pop in her left hip. She was taken to the emergency room and found to have a displaced subcapital left femoral neck fracture. Dr. Allen has been consulted as he has seen her as an outpatient for this same hip pain in the past. Please see dictated H and P for full details. HOSPITAL COURSE: The patient was cleared by both our service well as Cardiology. She does have known severe aortic stenosis, but felt she was an operative candidate. She ended up going to the OR the day after. She actually tolerated that pretty darn well overall. Cardiovascularly, she was very stable throughout her hospitalization, denied having major rhythm problems with her atrial fibrillation. She had an echo done in February of 2017 with a prior hospitalization and ejection fracture was 60% to 65% with mild concentric LVH, diastolic dysfunction, moderate biatrial enlargement, and severe aortic stenosis. She ended up having some anemia issues, she does have chronic anemia anyway, but her hemoglobin got down to under 8. She was transfused 1 unit and that brought her up. She was in the 8 at the time of discharge. She continued to get her routine dialysis on Monday, Monday, Monday, during the hospital stay, a good chunk of the stay was spent trying to find placement for her. We were able to find placement at [facility] and on the morning of the she was deemed ready for discharge. From an Orthopedic standpoint, she really had no major issues postoperatively. DISCHARGE INSTRUCTIONS: She will be sent to [facility], we will get PT and PATIENT'S NAME: MILLY ARANGO [facility] AGE: 86 Y [address] ROOM: [address] [place], [place] [address] LOCATION: [facility] ADMIT DATE: 03/16/2017 Discharge Summary DISCHARGE DATE: 03/23/2017 FAMILY PHYSICIAN: Allie Dominguez MD ATTENDING PHYSICIAN: Lorraine Carroll OT there, we will keep her sats greater than 90%. She will not have any IV access. Her medications include amlodipine 5 mg q.a.m., aspirin 81 mg once a day, Ceftin 250 b.i.d., which stopped date will be the , enoxaparin 30 mg subcu once a day, stopped date will be 04/16/2017, metoprolol 25 mg b.i.d., multivitamin one a day, Florastor one a day, Tylenol 1000 mg every 6 hours as needed, Valium 2.5 mg every 6 hours as needed, Bentyl 20 mg every 6 hours as needed, Nucynta 50 to 100 mg every 4 hours as needed for pain. She will call or return if she has further problems or concerns. She voiced understanding of this plan. It is a thought of having her there primarily for rehab for this and with her overall health condition I think her discharge potential overall is pretty poor. ALLIE DOMINGUEZ MD TAB/modl /[id number] d: 03/23/178 t: 04/17/17825, DISCHARGE SUMMARY
--- NOTE | ~2017-03-16 | OR ---
PATIENT'S NAME: MILLY ARANGO [facility] AGE: 86 Y [address] ROOM: [place] [address] LOCATION: [facility] ADMIT DATE: 03/16/2017 OR/Procedure Report DISCHARGE DATE: FAMILY PHYSICIAN: Asa Dominguez MD ATTENDING PHYSICIAN: Lorraine Carroll SURGEON: Wolf Allen MD AGRICULTURAL EQUIPMENT MECHANIC: DATE OF PROCEDURE: 03/17/2017 PREOPERATIVE DIAGNOSIS: Left displaced subcapital fracture of the femoral neck. POSTOPERATIVE DIAGNOSIS: Left displaced subcapital fracture of the femoral neck. PROCEDURE PERFORMED: Left hip hemiarthroplasty. STAFFING AND SCHEDULING COORDINATOR: Larry Tellez PA-C ANESTHESIA: General endotracheal anesthesia. FLUIDS: See Anesthesia report. ESTIMATED BLOOD LOSS: 325 mL. TOURNIQUET: None. SPECIMENS: None. COMPLICATIONS: None. DISPOSITION: Stable, in PACU. COUNTS: All counts were correct. IMPLANTS: Joanne left hip hemiarthroplasty, size 6 Accolade II stem, 28 mm, 0 offset femoral head and 44 mm bipolar component. INDICATIONS: Ms. Arango is a pleasant, 86-year-old female who underwent the noted procedure above. The risks, benefits, and alternatives to pursuing surgical intervention were discussed with the patient in detail. She elected to proceed with surgery. I marked the patient's left lower extremity, indicating the correct surgical site. Anesthesia was consulted for their perioperative evaluation of the patient. PATIENT'S NAME: MILLY ARANGO [facility] AGE: 86 Y [address] ROOM: [place] [address] LOCATION: [facility] ADMIT DATE: 03/16/2017 OR/Procedure Report DISCHARGE DATE: FAMILY PHYSICIAN: Asa Dominguez MD ATTENDING PHYSICIAN: Lorraine Carroll OPERATIVE REPORT IN DETAIL: The patient was brought from the holding area to the operating room. A time-out was performed. General endotracheal anesthesia was administered. The patient was positioned in Stulberg positioners. I turned my attention to the left hip. The left lower extremity was then prepped and draped in a sterile fashion. I used a 15 blade knife and began with a posterior approach to the hip. The incision was carried through skin, subcutaneous tissue, muscle, and fascia, down to bone. I identified the posterior aspect of the greater trochanter. I used a Bovie electrocautery device to remove the short external rotators and posterior capsule. I tagged them with Ethibond suture. I identified the fractured femoral neck. Using my template, I used Bovie electrocautery device to moose my femoral neck cut. Using an oscillating saw, I made my femoral neck cut. I then turned my attention and introduced a canal finder to cannulate the intramedullary canal. I then sequentially broached and measured for my implant. The femoral head was removed and sized. Trial components were assessed and deemed stable. The hip had full extension to 140 degrees of hip flexion and 50 degrees of internal rotation before surgical dislocation. The hip was then surgically dislocated, and all the trial componentry was removed. It was copiously irrigated with a normal sterile saline solution. I implanted my final components and reduced the hip. It was brought again through range of motion and deemed stable. Using a drill, I reattached the posterior capsule and short external rotators to the posterior aspect of the greater trochanter through bony tunnels. The hip again was taken through range of motion and deemed stable. The wound was then copiously irrigated with a normal sterile saline solution via pulsatile lavage. A #2 Stratafix suture was used to approximate the fascial layer, followed by 0 Stratafix suture for the deeper subcutaneous tissue. 2-0 Vicryl suture was used to approximate the more superficial subcutaneous tissue and dermis. Prineo was used to approximate the skin. A sterile Mepilex dressing was placed over the hip. The patient was then taken out of the positioners, placed supine on the operating room table, and extubated. An abduction pillow was placed between her legs. She was transferred from the operating room table onto the hospital bed and brought to the recovery room in stable condition. PATIENT'S NAME: MILLY ARANGO [facility] AGE: 86 Y [address] ROOM: [address] [id number] LOCATION: [facility] ADMIT DATE: 03/16/2017 OR/Procedure Report DISCHARGE DATE: FAMILY PHYSICIAN: Asa Dominguez MD ATTENDING PHYSICIAN: Lorraine Carroll There were no intraoperative complications noted. Of note, my PA, Larry Tellez PA-C, played an integral role in the intraoperative care of this patient. This included preoperative positioning, intraoperative expert retraction, and closing and dressing functions. IMPRESSION: The patient is status post the noted procedure above. PLAN: The patient will be weightbearing as tolerated on the left lower extremity with hip flexion precautions to 90 degrees. The hospitalist will continue to manage the patient's concomitant medical comorbidities. Postoperative antibiotics will be administered per routine. Physical Therapy and Occupational Therapy will be consulted for early ambulation and prevention of deconditioning. Case management and social work team will also be consulted to assess the patient's postoperative placement if needed. DVT prophylaxis postoperatively in the form of Lovenox. Pain control in the form of Percocet and IV morphine as needed for pain. I will continue to follow the patient closely in this postoperative period. MD GEOVANNA DAVIS/modl /[id number] d: 03/17/17 1844 t: 03/19/17 1619, OPERATIVE SUMMARY
--- NOTE | ~2017-03-16 | CON ---
PATIENT'S NAME: MILLY ARANGO [facility] AGE: 86 Y [address] ROOM: [id number] [place], [place] [address] LOCATION: [facility] ADMIT DATE: 03/16/2017 Consultation DISCHARGE DATE: FAMILY PHYSICIAN: Asa Dominguez MD ATTENDING PHYSICIAN: Lorraine Carroll DATE OF CONSULTATION: 03/17/2017 REFERRING PHYSICIAN: JANES SAUCEDA MD CONTINUATION: PLAN: I will obtain her outpatient dialysis record, and we will start her on dialysis sooner than later. She is scheduled to have surgery at noon, and she has maybe 1 to 2 L of fluid to be removed. I will let her get off dialysis after 3 hours. I would like to thank Dr. Carroll for allowing me to participate in this patient's care. M MD MERY HECTOR/tiki /[id number] d: 03/17/17 1353 t: 03/20/17 0951, CONSULTATION REPORT
--- NOTE | ~2017-03-16 | CON ---
PATIENT'S NAME: MILLY ARANGO [facility] AGE: 86 Y [address] ROOM: [place] [address] LOCATION: [facility] ADMIT DATE: 03/16/2017 Consultation DISCHARGE DATE: FAMILY PHYSICIAN: Asa Dominguez MD ATTENDING PHYSICIAN: Lorraine Carroll DATE OF CONSULTATION: 03/17/2017 REFERRING PHYSICIAN: JANES SAUCEDA MD REASON FOR CONSULTATION: End-stage renal failure. The patient is due for dialysis treatment. HISTORY OF PRESENT ILLNESS: The patient is an 86-year-old white female with history of end-stage renal failure from hypertension and vascular disease. She is normally on dialysis, Monday's, Monday's and Monday's through her right upper extremity AV fistula. The patient was complaining of left-sided hip pain for several days. She felt a painful pop of her left hip. The patient was ultimately diagnosed with a displaced subcapital left femoral neck fracture. The patient will need an open reduction and internal fixation. She is due for her dialysis treatment today and therefore I have been asked to see her for a nephrology consultation. REVIEW OF SYSTEMS: GENERAL: She denies any fever or chills. She is tired. HEENT: Denies any sore throat or sinus congestion. CARDIOVASCULAR: Denies any chest pain or dyspnea on exertion. RESPIRATORY: Denies any cough or sputum production. GI: Denies any abdominal pain, nausea, or vomiting. : Denies any dysuria or frequency. MUSCULOSKELETAL: She has left hip pain. SKIN: Denies any rash or pruritus. Denies any allergies or hay fever. LYMPHATIC/HEMATOLOGIC: Denies any lymph node enlargement or easy bruising. Denies any heat or cold intolerance. PSYCHIATRIC: Denies any sadness, crying spells, poor concentration, or panic attack. ALLERGIES: SHE IS ALLERGIC TO QUINOLONES, PENICILLIN, NITROFURANTOIN, CIPROFLOXACIN, CEFUROXIME, CLARITHROMYCIN, AMOXICILLIN, AND LEVOFLOXACIN. MEDICATIONS: Outpatient medications include: 1. Acetaminophen 1000 mg q.6 hours p.r.n. 2. Metoprolol 25 mg every day. PATIENT'S NAME: MILLY ARANGO [facility] AGE: 86 Y [address] ROOM: [place] [id number] LOCATION: [facility] ADMIT DATE: 03/16/2017 Consultation DISCHARGE DATE: FAMILY PHYSICIAN: Asa Dominguez MD ATTENDING PHYSICIAN: Lorraine Carroll 3. Amlodipine 5 mg a day. 4. Bentyl 20 mg q.6 hours. 5. Hydrocodone and acetaminophen 1-2 q.4-6 hours p.r.n. 6. Lomotil 1 tablet q.6 hours p.r.n. 7. Multivitamin once a day. 8. Aspirin 81 mg a day. PAST MEDICAL HISTORY: 1. End-stage renal failure. 2. Hypertension. 3. Chronic atrial fibrillation. 4. Status post left hip fracture. 5. History of GI bleed. 6. Blood loss anemia by history. 7. History of C. diff colitis. 8. Spinal stenosis. 9. Severe aortic stenosis. 10. Restless legs syndrome. 11. Primary hyperparathyroidism. 12. Osteoporosis. 13. Osteoarthritis. 14. Hyperlipidemia. 15. Right upper extremity DVT in 2010. 16. Gout. 17. Gastroesophageal reflux disorder. PAST SURGICAL HISTORY: 1. Abdominal hysterectomy. 2. Left arm brachiocephalic graft. 3. Right arm brachiocephalic fistula, October 2016. 4. Superficialization of the right arm brachiocephalic AV fistula in December 2016. 5. Bladder sling surgery. 6. Cholecystectomy. 7. ERCP. 8. EGD. 9. Exploratory laparotomy. 10. Right eye surgery. 11. Parathyroidectomy, August 2013. 12. Salpingo-oophorectomy. 13. Tonsillectomy. 14. Vitrectomy. SOCIAL HISTORY: She has no history of tobacco or alcohol. 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 She PATIENT'S NAME: MILLY ARANGO [facility] AGE: 86 Y [address] ROOM: [id number] [place], [place] [address] LOCATION: [facility] ADMIT DATE: 03/16/2017 Consultation DISCHARGE DATE: FAMILY PHYSICIAN: Asa Dominguez MD ATTENDING PHYSICIAN: Lorraine Carroll is . FAMILY HISTORY: Mother of colorectal cancer in her 80s. Sister of colorectal cancer in 60s. Brother of liver cancer. PHYSICAL EXAMINATION: GENERAL APPEARANCE: Sirwzm-qtst-gyqo-old white female, lying in a hospital bed, not in acute distress. VITAL SIGNS: Temperature 98.1, pulse 78, systolic blood pressure is 109, diastolic 55, and respirations of 18. HEENT: Head is normocephalic. Pupils are round and equal. Normal eyelid and conjunctivae. Oral cavity clear. Moist mucosa. NECK: Trachea central. No thyromegaly. No bruit. HEART: Sounds are audible in all the areas without any gallop. There is a 3/6 systolic murmur. LUNGS: Clear to auscultate. ABDOMEN: Soft, nontender. EXTREMITIES: No clubbing or cyanosis. SKIN: No signs of vasculitis. LYMPHATICS: I did not examine the lymphatics. HIGHER PSYCHIATRIC FUNCTION: She has normal speech and memory. LABORATORY DATA: WBC 17.2, hemoglobin 11.2, hematocrit 34.1, and platelet count of 283. Glucose 71, BUN 32, creatinine 4.3, sodium 139, potassium 3.6, chloride 103, bicarbonate of 24, calcium 7.7, albumin of 2.7, phosphorus of 3.6. ASSESSMENT: 1. End-stage renal failure due for hemodialysis treatment. 2. Status post left hip fracture. 3. Hypertension. 4. Hyperparathyroidism. 5. Gastroesophageal reflux disorder. 6. Chronic atrial fibrillation. PLAN: I will arrange for the dialysis treatment as soon as possible. M MD MERY HECTOR/tiki PATIENT'S NAME: MILLY ARANGO [facility] AGE: 86 Y [address] ROOM: [address] [address] LOCATION: [facility] ADMIT DATE: 03/16/2017 Consultation DISCHARGE DATE: FAMILY PHYSICIAN: Asa Dominguez MD ATTENDING PHYSICIAN: Lorraine Carroll /[id number] d: 03/17/17 1435 t: 03/20/17 0949, CONSULTATION REPORT
--- NOTE | ~2017-03-16 | HP ---
PATIENT'S NAME: MILLY ARANGO [facility] AGE: 86 Y [address] ROOM: [address] [address] LOCATION: [facility] ADMIT DATE: 03/16/2017 History & Physical DISCHARGE DATE: FAMILY PHYSICIAN: Asa Dominguez MD ATTENDING PHYSICIAN: Lorraine Carroll DATE OF SERVICE: CHIEF COMPLAINT: Left hip pain. HISTORY OF PRESENT ILLNESS: The patient is an 86-year-old, female, who primarily sees Dr. Asa Dominguez her primary physician. She has had some mild left leg pain for last 2 weeks, but she was getting out of vehicle around 4 p.m. today when she felt an extremely painful pop in her left hip and was unable to move or bear any weight. She was taken to the emergency room by ambulance and found to have displaced subcapital left femoral neck fracture. Dr. Allen is consulted. He has plan to take the patient to the OR tomorrow. She does have a complex past medical history with chronic kidney disease stage 5, on dialysis; atrial fibrillation; and severe aortic stenosis. At this time, she is reporting significant hip pain. Denies any chest pain or shortness of breath. Denies any nausea or vomiting. Denies any troubles with her bowels. She has very minimal urine output at baseline. PAST MEDICAL HISTORY: 1. Acute posthemorrhagic anemia secondary to lower GI bleed in 2014. 2. Atrial fibrillation. 3. Stage 5 chronic kidney disease requiring chronic dialysis. 4. Colon perforation secondary to colonoscopy April 2015, dialysis. 5. Duodenal ulcer noted on EGD January 2012. 6. GERD. 7. Gout. 8. History of right upper extremity DVT in 2010. 9. Mixed hyperlipidemia. 10. Generalized osteoarthritis. 11. Osteoporosis with history of fracture. 12. Primary hyperparathyroidism. 13. Restless legs syndrome. 14. Severe aortic stenosis. 15. Spinal stenosis. 16. She has a history of C. diff colitis. PAST SURGICAL HISTORY: 1. She had abdominal hysterectomy in the 1970s. 2. She had left arm brachiocephalic graft done in October 2015 with an attempt to declot brachiocephalic fistula with a graft tunneled catheter in the PATIENT'S NAME: MILLY ARANGO [facility] AGE: 86 Y [address] ROOM: [id number] [place], [place] [address] LOCATION: [facility] ADMIT DATE: 03/16/2017 History & Physical DISCHARGE DATE: FAMILY PHYSICIAN: Asa Dominguez MD ATTENDING PHYSICIAN: Lorraine Carroll right chest August 31, 2016, creation of new right arm brachiocephalic fistula October 2016 and a right arm brachiocephalic AV fistula Superficialization in December 2016. 3. Bladder sling surgery in the . 4. Cholecystectomy . 5. ERCP December 2014. 6. EGD January 2012. 7. Exploratory laparotomy. 8. Right eye surgery 2006. 9. Fistulogram with fistuloplasty in January 2017. 10. Parathyroidectomy August 2013. 11. Salpingo-oophorectomy . 12. Left thoracentesis May 2015. 13. Tonsillectomy age 13. 14. Vitrectomy in the for detached retina. SOCIAL HISTORY: No alcohol use. Nonsmoker. 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 . FAMILY HISTORY: Mother of colorectal cancer in her 80s. Sister of colorectal cancer in her 60s. Brother of liver cancer secondary to excessive alcohol use according to the patient. ALLERGIES: PENICILLIN, NITROFURANTOIN, QUINOLONES, SULFA, CEPHALOSPORINS, CLARITHROMYCIN, AND MACROLIDES. MEDICATIONS: 1. Amlodipine 5 mg p.o. q.a.m. 2. Aspirin 81 mg p.o. daily. 3. Dicyclomine 20 mg p.o. q.6 hours p.r.n. 4. Lomotil 1 tab p.o. q.6 hours p.r.n. diarrhea. 5. [place] 5/325 mg 1 to 2 tabs p.o. q.4 to 6 hours p.r.n. pain. 6. Lopressor 25 mg p.o. b.i.d. 7. Multivitamin daily. PHYSICAL EXAMINATION: VITAL SIGNS: Per nursing record. GENERAL: She is awake, alert, and oriented. She is complaining of left hip pain. No signs of acute distress. HEART: Regular rate and rhythm with grade 4/6 systolic ejection murmur best heard at the right upper sternal border. LUNGS: Clear to auscultation throughout. ABDOMEN: Soft nontender nondistended. No masses palpated. PATIENT'S NAME: MILLY ARANGO [facility] AGE: 86 Y [address] ROOM: [id number] [place], [place] [address] LOCATION: [facility] ADMIT DATE: 03/16/2017 History & Physical DISCHARGE DATE: FAMILY PHYSICIAN: Asa Dominguez MD ATTENDING PHYSICIAN: Lorraine Carroll EXTREMITIES: No peripheral edema noted. Extremities are warm and well perfused. NEUROLOGIC: Cranial nerves II through XII grossly intact. No focal neurologic deficits noted. SKIN: She does have graft/fistula in right arm. She also has a mid-line placed in left arm. LABORATORY FINDINGS: WBC 17.2, hemoglobin 11.2, hematocrit 34.1, and platelets 283. 82% neutrophils with elevated neutrophil count of 14.1. Sodium 138, potassium 3.4, chloride 101, bicarb 24, BUN 22, creatinine 3.5 with AST 12, ALT 13, alkaline phosphatase 90, and GFR of 11. Imaging shows displaced subcapital left femoral neck fracture as well as vascular calcifications, and chest x-ray shows mildly prominent cardiac silhouette with scattered fibrotic stranding and no discrete focal infiltrate, pleural effusion, or pneumothorax identified. ASSESSMENT AND PLAN: 1. Left femur fracture, nondisplaced subcapital fracture. Dr. Allen is involved in planning to take the patient to surgery tomorrow. 2. Chronic kidney disease, stage 5, on dialysis. Renal has been consulted. I appreciate their recommendations. They have recommended no IV fluids. 3. Atrial fibrillation with severe aortic stenosis. She is on telemetry. Cardiology has been consulted. I appreciate their recommendations. EKG has been ordered with an echo in the morning. 4. Failed fistula and no peripheral IV access. Mid-line has been placed. 5. Elevated WBC. Could be due to stress of the fracture. She is afebrile. 6. Chest x-ray shows no acute infiltrate. Per nursing, she has had no urine output and they have been unable to place [place] on last 3 attempts. UTI would be something to consider. We will get blood cultures and urine culture when able to obtain urine. 7. Code status: She is a no code. 8. Her primary physician, Dr. Dominguez is aware of her admission and will assume her primary care in the morning. MD SHELBI LUX/jannethl /[id number] D: [id number] T: [id number] HISTORY & PHYSICAL
--- NOTE | ~2017-03-16 | CON ---
PATIENT'S NAME: MILLY ARANGO [facility] AGE: 86 Y [address] ROOM: [id number] [place], [place] [address] LOCATION: [facility] ADMIT DATE: 03/16/2017 Consultation DISCHARGE DATE: FAMILY PHYSICIAN: Asa Dominguez MD ATTENDING PHYSICIAN: Lorraine Carroll REFERRING PHYSICIAN: JANES SAUCEDA MD CHIEF COMPLAINT: Left hip and groin pain. HISTORY OF PRESENT ILLNESS: Ms. Arango is a pleasant, 86-year-old female, who is known to me, whom I have treated for left wrist pain and thigh pain for which she presented to my office in the last week. She reports, yesterday, 03/16/2017, she was getting out of her motor vehicle around 4 p.m. when she felt a pop in her left hip. She was brought to the emergency room, and plain x-rays were obtained. She was diagnosed with a displaced subcapital left femoral neck fracture. I was consulted for definitive orthopedic care. At that time, aggravating factors included movement of the hip, manipulation of the hip, or attempted weightbearing. Alleviating factors included rest, ice, elevation, and immobilization of the hip. The patient does have a complex past medical history that includes chronic kidney disease, stage 5, on hemodialysis; atrial fibrillation; and severe aortic stenosis. Currently, the patient denies any constitutional symptoms such as fever, chills, or night sweats. She also denies any dizziness, chest pain, shortness of breath, blurred vision, nausea, vomiting, or diarrhea. REVIEW OF SYSTEMS: A 10-point review of systems was otherwise as mentioned above in the HPI. The patient's issue is musculoskeletal and pertains to her left lower extremity. The rest of her review of systems is negative other than what is mentioned above. PAST MEDICAL HISTORY: Includes acute posthemorrhagic anemia secondary to lower GI bleed in 2014; atrial fibrillation; stage 5 chronic kidney disease, on hemodialysis; colon perforation secondary to colonoscopy in April 2015; duodenal ulcer; GERD; gout; history of right upper extremity DVT in 2010; mixed hyperlipidemia; general osteoarthritis and osteoporosis, with a history of fracture; primary hyperparathyroidism; restless legs syndrome; severe aortic stenosis; spinal stenosis; and history of Clostridium difficile colitis. PAST SURGICAL HISTORY: Includes an abdominal hysterectomy; brachiocephalic graft in October 2016 on the left upper extremity with subsequent creation of a new right arm brachiocephalic fistula in October 2016 and a right arm brachiocephalic AV PATIENT'S NAME: MILLY ARANGO [facility] AGE: 86 Y [address] ROOM: [id number] [place], [place] [address] LOCATION: [facility] ADMIT DATE: 03/16/2017 Consultation DISCHARGE DATE: FAMILY PHYSICIAN: Asa Dominguez MD ATTENDING PHYSICIAN: Lorraine Carroll fistula, superficial position, in 2016; bladder sling surgery in the ; cholecystectomy in the ; ERCP in December 2014; EGD in January 2012; exploratory laparotomy; right eye surgery in 2006; fistulogram and fistuloplasty in January 2017; parathyroidectomy in January 2017; salpingo-oophorectomy in the ; left thoracentesis in May 2015; tonsillectomy at age 13; and vitrectomy in the for a detached retina. SOCIAL HISTORY: She denies any alcohol, tobacco, or illicit drug use. She is . 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 FAMILY HISTORY: Her mother of colorectal cancer. Her sister of colorectal cancer. Her brother of liver cancer secondary to excessive alcohol use. ALLERGIES: INCLUDE PENICILLIN, NITROFURANTOIN, QUINOLONE, SULFA, CEPHALOSPORINS, CLARITHROMYCIN, AND MACROLIDES. MEDICATIONS: Currently, at home include: 1. Amlodipine. 2. Aspirin. 3. Dicyclomine. 4. Lamictal. 5. [place]. 6. Lopressor. 7. Multivitamin daily. PHYSICAL EXAMINATION: VITAL SIGNS: Include temperature 98.1, respirations of 14, heart rate is 72, and blood pressure 105/51. GENERAL: The patient is awake, alert, and oriented x3. She is actively conversing at the bedside. She is in no acute distress. HEENT: Normocephalic and atraumatic. Extraocular movements are intact. PERRLA. Moist mucous membranes. Oropharyngeal airway is clear. NECK: Supple. Trachea is in the midline. CARDIOVASCULAR: Regular rate and rhythm. ABDOMEN: Soft, nontender, and nondistended. LUNGS: Normal symmetric respirations are observed bilaterally. SKIN: Dry. EXTREMITIES: Left Lower Extremity: Focal examination of the left lower extremity reveals that she is grossly neurologically intact distally. The limb is shortened and externally rotated compared to the contralateral limb. Compartments of the thigh, leg, and foot are soft. There are palpable PATIENT'S NAME: MILLY ARANGO [facility] AGE: 86 Y [address] ROOM: [id number] [place], [place] [address] LOCATION: [facility] ADMIT DATE: 03/16/2017 Consultation DISCHARGE DATE: FAMILY PHYSICIAN: Asa Dominguez MD ATTENDING PHYSICIAN: Lorraine Carroll dorsalis pedal and posterior tibial pulses. There is +1 edema in the leg. There is evidence of venous stasis disease. The patient is actively able to dorsiflex and plantar flex her ankle, though this elicits pain and discomfort at the hip and groin area. There is some tenderness to palpation over the level of the greater trochanter. There is a positive log roll test. IMAGING: Plain radiographs of the left hip were obtained on March 09, 2017. There does not appear to be evidence of fracture or dislocation. There are degenerative changes at the joint and advanced osteopenia. Plain radiographs of the pelvis were obtained in the emergency room on March 16, 2017. There is a displaced subcapital femoral neck fracture. Again, diffuse osteopenia noted. LABORATORY DATA: Laboratory values include a white blood cell count of 17.2, hemoglobin 11.2, hematocrit 34.1, and platelets 283. CMP reveals a sodium of 138, potassium 3.4, chloride 101, bicarbonate of 24, BUN 22, and creatinine 3.5. AST 12, ALT 13, and alkaline phosphatase 90. GFR of 11. IMPRESSION: 1. Left displaced subcapital fracture of the proximal femur 2. Chronic kidney disease, stage 5, on hemodialysis. 3. Atrial fibrillation with severe aortic stenosis. 4. Failed fistula, with no peripheral IV access. Central line has been placed. PLAN: I had a long discussion with the patient today at the bedside regarding her left hip. I just interacted with the patient in the last week for pain in the left wrist and femur. At that time, I did not appreciate any evidence of fracture, and the patient was weightbearing with the assistance of a rolling walker which is where she is at baseline. She sustained a hip fracture getting out of her car yesterday, 03/16/2017. I am recommending a left hip hemiarthroplasty. We have discussed the risks, benefits, and alternatives to pursuing a surgical intervention in detail. We have discussed the risks of anesthesia, infection, bleeding, and/or injury to neurovascular structures. She is at high risk for surgery considering all of her concomitant medical comorbidities. They are planning for hemodialysis this morning and an echo. Once the echo has been interpreted, we will await on medical clearance in preparation for surgery this afternoon. If the patient requires further workup, we may plan for surgery at some point over the weekend or on Monday. She will be bedrest for now. We will provide adequate pain control. We will PATIENT'S NAME: MILLY ARANGO [facility] AGE: 86 Y [address] ROOM: [place] [address] LOCATION: [facility] ADMIT DATE: 03/16/2017 Consultation DISCHARGE DATE: FAMILY PHYSICIAN: Asa Dominguez MD ATTENDING PHYSICIAN: Lorraine Carroll hold chemical DVT prophylaxis and proceed with mechanical prophylaxis in preparation for surgery. MD GEOVANNA DAVIS/modl /[id number] d: 03/17/17 1141 t: 03/17/17 1501, CONSULTATION REPORT
[~2017-03-16 16:13] MED LIST changes: -ASPIRIN LO-DOSE81 MG PO; -DULCOLAX10 MG R; -FLORASTOR250 MG PO; -LOMOTIL1 TAB PO; -LOVENOX 3030 MG/0.3 SUB-Q; -MILK OF MA400 MG/5 M PO; -NUCYNTA50 MG PO; -THERAGRAN-M1 TAB PO; -VANCOMYCIN IV; -WOMEN'S DAILY1 EAC1 PO
[2017-03-16 16:45] LABS: BASOPHIL # 0.1 K/uL (0.0-0.2); BASOPHIL % 0.3 %; EOSINOPHIL # 0.1 K/uL (0.0-0.5); EOSINOPHIL % 0.6 %; HEMATOCRIT 34.1 % (30.0-46.0); HEMOGLOBIN 11.2 g/dL (10.0-15.0); IMMATURE GRANULOCYTE # 0.1 K/uL (0.0-0.3); IMMATURE GRANULOCYTE % 0.5 %; LYMPHOCYTE # 1.4 K/uL (0.8-4.0); LYMPHOCYTE % 8.1 %; MCHC 32.8 gm/dL (32.0-36.5); MCV 97.4 fl (83.0-98.0); MONOCYTE # 1.5 K/uL (0.0-1.0); MONOCYTE % 8.4 %; MPV 8.9 fl (9.4-12.4); NEUTROPHIL # (ANC) 14.1 K/uL (1.8-7.8); NEUTROPHIL % 82.1 %; NRBC % 0 /100WBC (0-0.00); PLATELET COUNT 283 K/uL (150-450)
[2017-03-16 16:47] LABS: WBC 17.2 K/uL (4.0-11.0)
[2017-03-16 17:14] LABS: ALBUMIN 3.4 gm/dL (3.5-5.0); ANION GAP 16.4 (10.0-19.0); CALCIUM 8.4 mg/dL (8.5-10.5); CREATININE 3.5 mg/dL (0.5-1.1); POTASSIUM 3.4 mMol/L (3.7-5.1)
[2017-03-16 17:17] LABS: TOTAL BILIRUBIN 0.5 mg/dL (0.0-1.5)
[2017-03-16] MEDS ORDERED: THERAGRAN-M1 TAB PO (19:32)
[2017-03-16] MEDS ORDERED: LOMOTIL1 TAB PO (19:32)
[2017-03-16] MEDS ORDERED: ASPIRIN LO-DOSE81 MG PO (19:32)
--- NOTE | 2017-03-16 21:02 | NUR ---
PATIENT THINKS THIS HAPPENED TWO WEEKS AGO. THE LAST TWO TO THREE DAYS AGO HAVE HAD A HARD TIME GETTING AROUND. WAS GETTING OUT OF THE CAR AND MOVING HER LEG OUT OF A CAR SHE HEARD A SNAP. GOT INTO A WHEELCHAIR AND COULD NOT MOVE AFTER THAT. AT THAT POINT THE AMBULANCE WAS CALLED AND WAS TAKEN TO [facility]
--- NOTE | 2017-03-17 03:13 | NUR ---
Significant Event: L) arm has old fistula. R) arm has a fistula. She does dialysis on Monday, Monday and Monday. On 2 L of oxygen nasal cannula. CSM WNL. A&O x3. Morphine at 0142. [place] at 0113. [place] 2.5mg at 2150. On telemetry with no calls. Voided per bedpan. Midline to L) upper arm. NPO since midnight. Echo in AM. Dr. Gibson and Dr. Guevara will see patient today. Follow up:
[2017-03-17 05:33] LABS: BLOOD URINE 250 /UL (NEGATIVE); COLOR URINE YELLOW (YELLOW); GLUCOSE URINE NEGATIVE (NEGATIVE); KETONE URINE 5 mg/dL (NEGATIVE); LEUKOCYTES URINE 500 /UL (NEGATIVE); NITRITE URINE NEGATIVE (NEGATIVE); PROTEIN URINE 100 mg/dL (NEGATIVE); SPEC GRAVITY URINE 1.015 (1.003-1.035); TURBIDITY URINE 1+ (CLEAR); UROBILINOGEN URINE NORMAL (NORMAL)
[2017-03-17 05:42] LABS: BACTERIA URINE MODERATE (NEGATIVE); RBC URINE 20-50 #/HPF (NEGATIVE); WBC URINE 20-50 #/HPF (NEGATIVE)
[2017-03-17 09:20] LABS: ALBUMIN 2.7 gm/dL (3.5-5.0); ANION GAP 15.6 (10.0-19.0); CALCIUM 7.5 mg/dL (8.5-10.5); PHOSPHORUS 3.6 mg/dL (2.5-4.9); POTASSIUM 3.6 mMol/L (3.7-5.1)
[2017-03-17 09:22] LABS: CREATININE 4.3 mg/dL (0.5-1.1)
--- NOTE | 2017-03-18 04:54 | NUR ---
Significant Event: A&Ox3, Hypotension, SBP: 90s-110s. Parameters for BP meds. Issues with "comfort" this shift. Patient repositioned Q2hrs, refuses at times. Valium, [place], and Morphine for pain control. Telemetry on with no calls. Wiggles toes and dorsaflex/plantar flex bilat feet. Right fistula with good thrill. 1 smal void this shift. Right midline SL. Patient states her stomach is "bothering" her but denies nausea. Refuses to get out of bed at this time. Follow up:
[2017-03-18 06:14] LABS: HEMATOCRIT 24.4 % (30.0-46.0); HEMOGLOBIN 7.9 g/dL (10.0-15.0)
[2017-03-18 12:46] LABS: BASOPHIL % 0.2 %; EOSINOPHIL % 0.2 %; HEMATOCRIT 23.4 % (30.0-46.0); IMMATURE GRANULOCYTE # 0.1 K/uL (0.0-0.3); IMMATURE GRANULOCYTE % 0.6 %; LYMPHOCYTE # 0.8 K/uL (0.8-4.0); MCV 94.7 fl (83.0-98.0); MONOCYTE # 1.7 K/uL (0.0-1.0); MONOCYTE % 12.9 %; MPV 9.4 fl (9.4-12.4); NEUTROPHIL # (ANC) 10.4 K/uL (1.8-7.8); NEUTROPHIL % 80.1 %; NRBC % 0.2 /100WBC (0-0.00); RDW-CV 14.7 % (11.9-14.6)
[2017-03-18 12:53] LABS: HEMOGLOBIN 7.7 g/dL (10.0-15.0); MCH 31.2 pg (27.0-34.0); MCHC 32.9 gm/dL (32.0-36.5); PLATELET COUNT 208 K/uL (150-450); RBC 2.47 M/uL (3.00-5.00)
--- NOTE | 2017-03-18 16:11 | NUR ---
Significant Event: Pt Aox3. VSS, slightly low but asymptomatic. Old fistula to left arm. Midline to left arm. Right arm fistula. HgB to be drawn at 1700. 7.9 HgB recheck was 7.7. Up with 2 person assist, walker and gait belt. [place] for pain, works well. Did return via lift this afternoon. Needs much encouragement for activity. Dressing C/D/I. Voided x 1. Tele, no calls. Abductor pillow between knees. Encourage IS Follow up:
--- NOTE | 2017-03-19 03:14 | NUR ---
Significant Event: A/O X 3. DENIES NUMBNESS-TINGLING TO LOWER EXTREMITIES. OLD FISTULA TO LEFT ARM. HAS MIDLINE IV SITE LEFT ARM. HAS RIGHT ARM FISTULA PRESENT. BILATERAL FOOT PUMPS TO FEET. PATIENT WAS OFFERED SEVERAL TIMES ON REPOSITIONING, BUT PATIENT REFUSED TO BE TURN Q 2 HR. LEFT HIP DRSGS MEPILEX DRY-INTACT, ICE BAG TO SITE. 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 TELEMETRY ON, NO CALLS. INCENTIVE SPIROMETER USAGE 1000. RIGHT ARM FISTULA HAS GOOD THRILL. IS A DIALYSIS PATIENT M-W-. NO VOID THIS SHIFT. HAS ZOFRAN 4 MG IV EARLIER IN SHIFT FOR NAUSEA, NO VOMITING. LATER NO FURTHER NAUSEA. LIKES ICE CHIPS. Follow up:
[2017-03-19 04:30] LABS: HEMATOCRIT 24.8 % (30.0-46.0); HEMOGLOBIN 8.2 g/dL (10.0-15.0)
--- NOTE | 2017-03-19 13:26 | NUR ---
Significant Event: Pt Aox3. VSS, CSM WNL. Dressing C/D/I. Nausea this am, Zofran given x 1, better now. Dr. Dominguez aware. Old fistula to left arm. Midline catheter to left arm. Right arm fistula. [place] for pain PRN. IS 10x/hr, needs encouragement. Needs encouragement for activity. Up with 1-2 PA. Abductor pillow between knees. Void x 1, small BM. Dialysis --. Follow up:
--- NOTE | 2017-03-20 03:16 | NUR ---
Significant Event: A/O X 3. MEPILEX DRSGS LEFT HIP DRY-INTACT, ICE BAG TO SITE. DENIES NUMBNESS-TINGLING TO LOWER EXTREMITIES. 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 OLD FISTULA LEFT ARM. FISTULA RIGHT ARM, GOOD THRILL. HAS MIDLINE CATHETER TO LEFT ARM. ZOFRAN 4MG IV GIVEN AT 1943 FOR NAUSEA. LATER MED EFFECTIVE. HAD NUCYNTA 50MG FOR PAIN LEFT KNEE AREA AT 0234, RATE 8. PATIENT REFUSED TO BE TURN WITH 2 ASSIST. PATIENT BOOSTED UP IN BED, SHIFTED POSITION. IS A DIALYSIS PATIENT, M-W-. PATIENT NEEDS ENCOURAGEMENT FOR ACTIVITY. BILATERAL FOOT PUMPS TO FEET. ON CEFTIN FOR UTI. ENCOURAGE FLUIDS AND GOOD FARA CARE. 2 ASSIST UP AND OR WITH LIFT. Follow up:
[2017-03-20 06:01] LABS: HEMATOCRIT 21.4 % (30.0-46.0)
[2017-03-20 06:02] LABS: HEMOGLOBIN 7.1 g/dL (10.0-15.0)
[2017-03-20 09:41] LABS: ALBUMIN 2.1 gm/dL (3.5-5.0); ANION GAP 18.3 (10.0-19.0); CALCIUM 6.4 mg/dL (8.5-10.5); CREATININE 5.9 mg/dL (0.5-1.1); PHOSPHORUS 2.8 mg/dL (2.5-4.9); POTASSIUM 4.3 mMol/L (3.7-5.1)
--- NOTE | 2017-03-20 14:28 | NUR ---
Significant Event:a/o x 3. Very forgetful. Very hestitant to move. Needs lots of encouragement. Ambulated/shuffled feet a few steps with 2 assist, gait belt and walker. Up n recliner. Abductuor in place at all times. SBP 100's. HR 70's to 100's. Dialysis today to removed 2.4 kilos. Complaints of posterior L) knee pain. Nurcytna 100 mg given x 2. Morphine IV given once in dialysis. Nauseas in dialysis and received 4 mg IV Zofran. Valium 2.5 mg given @ 1342 for meghan leg tiredness/pain. Also complains of "butt pain" Tilted left and right every 2 hours and up to chair < 2 hours on an iris cushion. Moisture barrier applied with turns. No redness, or bruising to coccyx or sacrum. Fair appetite, refused lunch, Ensure given and encouraged. Mepilex dressing to left hip, clean, dry, intact. CSM adequate. Voided 50 ml prior to dialysis today. Taking PO antibiotics. Lovenox given. meghan pneumatics on. Follow up:
--- NOTE | 2017-03-20 16:00 | NUR ---
SPOKE TO PATIENT REGARDING CM AND OUR ROLE. PATIENT LIVES ALONE IN OWN HOME AND GETS HD ON MON, MON AND MONDAY AT 1105. SHE TELLS ME THAT SHE KNOWS SHE NEEDS TO GO TO SNF FOR SHORT STAY. PRESENTED TO HER THE OPTIONS OF SNF IN THE [facility] AND SHE TELLS ME THAT THE ONLY ONE THAT SHE WILL NOT GO TO IS [facility]. I MADE REFERRALS TO [facility], [facility] AND [facility] WHICH ALL HAVE FEMALE BEDS AND ARE OPENED TO ACCEPTING PATIENT WITH THE HD. I FAXED INFO TO ALL THREE PLACES AND WILL AWAIT CALL FROM THEM TO WHETHER OR NOT THEY WILL ACCEPT PATIENT.
--- NOTE | 2017-03-21 04:16 | NUR ---
Significant Event: Pt A&Ox3, but forgetful. VS stable, remains on RA. Pt does have hypotension. Had HD yesterday with 2.4L off. Fistula in JOEY, good bruit and thrill. Old fistula in RADHA, taking BP's on LLA. Midline to RADHA, flushes, no blood return. On tele, hx of Afib and murmur. Dressing to Lt hip remains C/D/I. Up with x2 assist, needs constant verbal cues. Doesn't like to walk as she thinks she is going to fall. Pain is located mainly to the Lt hip and Lt knee. Does like ice for discomfort. Follow up: Continue plan of care. CM on case for placement.
[2017-03-21 05:26] LABS: HEMATOCRIT 25.1 % (30.0-46.0); HEMOGLOBIN 8.6 g/dL (10.0-15.0)
--- NOTE | 2017-03-21 11:00 | NUR ---
RECEIVED CALL FROM JONES AT [facility] AND AVNI AT [facility]. THEY HAVE REVIEWED THE INFO THAT I FAXED TO THEM AND THEY ARE PLANNING ON COMING SOMETIME TODAY AND MEET WITH PATIENT. I HAVE UPDATE PATIENT AND INFORMED HER OF THIS. WILL CONT TO FOLLOW NEEDED.
--- NOTE | 2017-03-21 13:40 | NUR ---
A - PT SCREENED D/T LOS. A/O X 3, FORGETFUL. NA+ 133, GLU 120, BUN/MANNEQUIN MAKER 63/5.9, ALB 2.1. PT S/P L) HIP REPAIR. DIALYSIS MWF. PT W/ 1+ BLE EDEMA. DIET: RENAL. ENSURE ORDERED TODAY TID. INTAKE VARIES REFUSED TO 75%. EST NEEDS: 2300 KCALS, 66-86 GM PROTEIN, FLUIDS PER MD. D - AT RISK W/ INADEQUATE ORAL INTAKE R/T DECREASED APPETITE AEB INTAKE RECORD. I - GOAL: 50-75% INTAKE BY DISMISSAL. M/E - 1) REC LIBERALIZING DIET TO REGULAR. 2) F/U IN 3-5 DAYS.
--- NOTE | 2017-03-21 15:50 | NUR ---
Significant Event: PATIENT ALERT AND ORIENTED X3, FORGETFUL AT TIMES. MEPILEX DRESSING TO L) HIP C/D/I. CSM ASSESSENTS WNL. C/O NAUSEA THIS AM AFTER BREAKFAST, RECEIVED REGLAN PO AT 1000, NOTE PATIENT TOLERATED LUNCH WELL. UP TO COMMODE AND CHAIR WITH 2 ASSIST, USE OF WALKER/GAIT BELT. HAD LARGE BM, CARES DONE. MIDLINE TO L) UPPER ARM, FLUSHES WELL. FISTULA TO R) UPPER ARM, GOOD BRUIT AND THRILL. TO HAVE DIALYSIS TOMORROW. TELEMETRY STOPPED PER ORDER. ICE BAG TO L) HIP AND BEHIND L) KNEE. ABDUCTOR PILLOW IN PLACE AT ALL TIMES. IRIS CUSHION IN CHAIR WHEN UP, NO REDNESS TO COCCYX/BUTTOCKS. BILATERAL FOOT PUMPS ON. NUCYNTA 1 TAB GIVEN AT 1053 FOR C/O L) KNEE PAIN, WITH RELIEF. Follow up:
--- NOTE | 2017-03-22 04:37 | NUR ---
Significant Event: Pt A&Ox3, but forgetful. VS stable, remains on RA. Pt does run hypotensive. AV fistula to JOEY. To have HD today, [facility] M/W/F. Pain associated with Lt hip and Lt knee. Ice to both knee and hip. Abductor pillow to remains in place at all times. Dressing remains C/D/I. Up with x2 assist and lots of verbal cues. CSM intact. PIV RADHA midline, SL. BP's taken on LLA. Started PO reglan prior to meals. No c/o nausea on shift. Pain controlled with scheduled pain meds. Follow up: HD. Continue plan of care. Waiting for placement.
[2017-03-22 04:48] LABS: ANION GAP 15.8 (10.0-19.0); POTASSIUM 4.8 mMol/L (3.7-5.1)
[2017-03-22 04:51] LABS: CALCIUM 6.5 mg/dL (8.5-10.5); CREATININE 4.5 mg/dL (0.5-1.1); PHOSPHORUS 1.6 mg/dL (2.5-4.9)
--- NOTE | 2017-03-22 09:30 | NUR ---
RAH FROM MOTHER PAULA HERE YESTERDAY TO SEE PATIENT BUT I HAVE NOT HEARD BACK FROM HER TO WHETHER OR NOT THEY WILL ACCEPT PATIENT. HAD TO LEAVE MESSAGE ON VOICE MAIL FOR HER TO CONTACT ME.
--- NOTE | 2017-03-22 09:59 | NUR ---
I STILL HAVE NOTE HEARD FROM JANAK WITH [facility]. I CONTACTED HER TO SEE IF SHE HAS EVALUATED MILLY AND SHE INFORMS ME THAT SHE HAS NOT AND THAT THEY DO NOT HAVE A BED A [facility] AT THIS TIME.
--- NOTE | 2017-03-22 10:09 | NUR ---
PT TAKEN DOWN TO DIALYSIS AT 0745.
--- NOTE | 2017-03-22 12:05 | NUR ---
SPOKE TO JONES VANG AT [facility]. SHE REPORTS THAT THE TEAM IS STILL REVIEWING MILLY'S INFO SHE HOPES TO HAVE AN ANSWER LATER TODAY TO WHETHER OR NOT THEY CAN ACCEPT PATIENT.
--- NOTE | 2017-03-22 13:30 | NUR ---
RECEIVED CALL FROM JONES AT [facility] SHE INFORMS ME THAT THEY WILL ACCEPT PATIENT TOMORROW. I SPOKE WITH MILLY AND SHE INFORMS ME THAT SHE RATHER GO TO [facility]. I NOTIFIED [facility] AT [facility] BUT HAD TO LEAVE A MESSAGE ON HER VOICE MAIL.
--- NOTE | 2017-03-22 15:30 | NUR ---
RECEIVED CALL FOR [facility] AT [facility] SHE INFORMS ME THAT THEY WILL ACCEPT PATIENT AND THEY WILL CONTACT ME IN THE AM WITH THE TIME THAT THEY WILL COME TO GET PATIENT. I SPOKE TO MILLY AND UPDATED HER THAT [facility] WILL ACCPET HER TOMORROW AND SHE IS IN AGREEMENT TO THIS. I NOTIFIED MARGIE [facility]OPE[facility] AND Devorah MOROCHO UPDATED THEM ON THE DISCHARGE PLANS. [facility] STARTED AND ORDERS PLACED ON THE CHART. I OFFERED TO LIN ATKINS'S DAUGHTER AND SHE INFORMS ME THAT SHE SPOKE TO HER AND UPDATED HER.
[2017-03-22 15:50] LABS: HEMATOCRIT 23.8 % (30.0-46.0); HEMOGLOBIN 8.1 g/dL (10.0-15.0)
--- NOTE | 2017-03-22 16:09 | NUR ---
Significant Event: pt alert and oriented. up in the recliner after returning from dialysis. 400cc off. will have it again on monday. transfers with 2 assist to the commode and recliner. could probably be a 1 assist but she is nervous with transfers. voids small amount prior to dialysis. small bm this am. takes medications well nucynta and morphine at intervals. looking for placement at this time. Follow up:
--- NOTE | 2017-03-23 03:54 | NUR ---
Significant Event: Pt alert and oriented. Uncomfortable at beginning of shift. Gave morphine x 1 at 1930 with much relief noted. Also gave Bentyl at this time for abd cramping a "bubble". GAve Nycenta x 1 at 0110 with relief noted. Pt has fistula to right upper arm. Abductor pillow inplace at all times. Did reposition hips and HOB throughout the night and pt also refused a few times as well. Follow up:
--- NOTE | 2017-03-23 09:26 | NUR ---
PT ALERT AND ORIENTED. UP WITH 1-2 ASSIST TO TRANSFER TO THE COMMODE AND BED. MEPILEX DRESSING TO LT HIP INTACT. SMALL SKIN TEAR ON LT HAND REDRESSED TODAY. PT TAKES NUCYNTA 100 MG PO FOR PAIN. LAST AT 0900, ALSO HAD 2 MG IV MORPHINE AT THAT TIME. PT C/OS GAS PAINS ON OCC TAKES BENTYL FOR THAT. LARGE BM TODAY. PT ON DIALYSIS AND HAS A FISTULA IN RT UPPER FOREARM. WILL NEED DIALYSIS TOMORROW. [id number] SCHEDULE. PT STATES HAS LOTS OF PAIN. NUCYNTA HELPS MAKE IT TOLERABLE FOR HER.
--- NOTE | 2017-03-23 09:30 | NUR ---
SPOKE TO AVNI AT [facility] SHE INFORMS ME THAT THEY WILL BE HERE AT 1145 TO GET PATIENT.UPDATED HER THAT MILLY WILL NEED TO BE AT [facility] MONDAY,MON AND MONDAY AT 1050 AM FOR HD AND SHE IS AWARE OF THIS.WILL FAX ORDERS TO [facility] AT [phone].
--- NOTE | 2017-03-23 11:17 | NUR ---
FAXED ORDERS TO AVNI AT [facility]. [facility] ([phone])
--- NOTE | 2017-03-23 14:11 | NUR ---
PT DISCHARGED TO [facility]
== END 2017-03-23 11:40 | DRG 469 ==
LOC: GACC 16:13 → G3N 17:20
PROVIDERS: Family Medicine; Internal Medicine Nephrology; Nurse Practitioner Family; Orthopaedic Surgery Adult Reconstructive Orthopaedic Surgery; ADMIT Family Medicine
PROC: 30233N1 Transfusion of Nonautologous Red Blood Cells into Peripheral Vein, Percutaneous Approach (ICD-10-PCS; principal; 2017-03-16)
PROC: 5A1D60Z (ICD-10-PCS; 2017-03-17)
PROC: 0SRS0JZ Replacement of Left Hip Joint, Femoral Surface with Synthetic Substitute, Open Approach (ICD-10-PCS; 2017-03-17)
DX: M80.052A Age-related osteoporosis with current pathological fracture, left femur, initial encounter for fracture (principal); N18.6 End stage renal disease; N39.0 Urinary tract infection, site not specified; I48.0 Paroxysmal atrial fibrillation; D63.1 Anemia in chronic kidney disease; E21.0 Primary hyperparathyroidism; E78.2 Mixed hyperlipidemia; G25.81 Restless legs syndrome; I13.11 Hypertensive heart and chronic kidney disease without heart failure, with stage 5 chronic kidney disease, or end stage renal disease; B96.20 Unspecified Escherichia coli [E. coli] as the cause of diseases classified elsewhere; Z87.310 Personal history of (healed) osteoporosis fracture; I35.0 Nonrheumatic aortic (valve) stenosis; K21.9 Gastro-esophageal reflux disease without esophagitis; M15.9 Polyosteoarthritis, unspecified; Z88.0 Allergy status to penicillin; Z88.8 Allergy status to other drugs, medicaments and biological substances; Z66 Do not resuscitate; Z99.2 Dependence on renal dialysis; Z79.82 Long term (current) use of aspirin; Z79.01 Long term (current) use of anticoagulants; J45.909 Unspecified asthma, uncomplicated; Z86.718 Personal history of other venous thrombosis and embolism
CPT/HCPCS: C1751; C1776; J0690; J1644; J1650; J2175; J2270; J2405; J2550; J3010; J7030; P9016; P9045; P9047

== ENCOUNTER → 2017-03-31 | Outpatient (CLI) | payer MEDICARE, MEDICAID ==
[~2017-03-31] MED LIST changes: +ASPIRIN LO-DOSE81 MG PO; +DULCOLAX10 MG R; +FLORASTOR250 MG PO; +LOMOTIL1 TAB PO; +LOVENOX 3030 MG/0.3 SUB-Q; +MILK OF MA400 MG/5 M PO; +NUCYNTA50 MG PO; +THERAGRAN-M1 TAB PO; +VANCOMYCIN IV; +WOMEN'S DAILY1 EAC1 PO
== END ==
DX: R19.5 Other fecal abnormalities (principal)

== ENCOUNTER 2017-04-03 18:33 | Inpatient (IN) | payer MEDICARE, MEDICAID ==
[~2017-04-03] VITALS: Ht 149.9 cm; Wt 62.6 kg
--- NOTE | ~2017-04-03 | OR ---
PATIENT'S NAME: MILLY ARANGO [facility] AGE: 87 Y [address] ROOM: [address] [address] [facility] ADMIT DATE: 04/03/2017 OR/Procedure Report DISCHARGE DATE: FAMILY PHYSICIAN: Asa Domingeuz MD ATTENDING PHYSICIAN: FRITZ CHURCHILL SURGEON: Fritz Churchill MD LABOR RELATIONS CONSULTANT: DATE OF PROCEDURE: 04/04/2017 PREOPERATIVE DIAGNOSIS: Infected left arm arteriovenous graft. POSTOPERATIVE DIAGNOSIS: Infected left arm arteriovenous graft. PROCEDURE: Excision of AV graft. MANAGER INTERFACE: JESSICA Max. ANESTHESIA: General. ESTIMATED FLUID LOSS: 20 mL. FINDINGS: Infected graft removed completely and culture sent. DESCRIPTION OF PROCEDURE: The patient was brought to the operating room, placed supine on the operating room table, prepped and draped in sterile manner. Time-out was performed. The patient received preoperative antibiotics. We made an incision over the arterial anastomosis sites, dissected down, noticed that this was a hybrid graft with a previously placed brachiocephalic fistula. We ligated the vein in this portion and then transected the graft away from this portion. We then turned our attention to the axilla, made a vertical incision, dissected down the fascia, incised the fascia in a longitudinal manner. Dissected out the axillary vein. We removed the graft in its entirety and then reapproximated the vein with interrupted 6- 0 Prolene. We then made an incision in the middle portion of the graft. There was evacuation of pus. Cultures were sent. The graft appeared to be completely eroded and completely broken down. We then removed the graft in its entirety. We copiously irrigated the wound. We reapproximated the deep layers on the proximal and distal sites which were not infected. We then packed the open arm wound with Dakin's solution. The patient tolerated the procedure well, transferred to recovery room and back up to the floor. FRITZ CHURCHILL MD PATIENT'S NAME: MILLY ARANGO [facility] AGE: 87 Y [address] ROOM: [id number] [place] [id number] LOCATION: GPCU ADMIT DATE: 04/03/2017 OR/Procedure Report DISCHARGE DATE: FAMILY PHYSICIAN: Asa Dominguez MD ATTENDING PHYSICIAN: FRITZ CHURCHILL/tiki /[id number] d: 04/05/17 0115 t: 04/13/17 1719, OPERATIVE SUMMARY
--- NOTE | ~2017-04-03 | CON ---
PATIENT'S NAME: MILLY ARAGNO [facility] AGE: 87 Y [address] ROOM: [address] [address] [facility] AD[facility] DATE: 04/03/2017 Consultation DISCHARGE DATE: FAMILY PHYSICIAN: Asa Dominguez MD ATTENDING PHYSICIAN: CHENG CHURCHILL DATE OF CONSULTATION: 04/04/2017 REFERRING PHYSICIAN: Lucille Gibson This is a [facility] Nephrology consultation. REASON FOR CONSULTATION: End-stage renal disease, on hemodialysis therapy, infected dialysis access. HISTORY OF PRESENT ILLNESS: This is an 87-year-old female patient who is well known to Dr. Gibson, who presents to dialysis as regularly scheduled on 04/03/2017 and does report that she had a noticeable area that was oozing from her old left graft in her upper extremity. The patient continues to dialyze on Monday, Monday, Monday at [facility]. She does have a new graft placed in her right upper extremity that is working well and she continues to dialyze from this access. The patient's recent past medical history has been quite complicated including a left hip fracture on 03/16/2017 as well as a left hip hemiarthroplasty. The patient has been recovering well since this time. She continues to live at [facility] for rehabilitation purposes. The patient also had a history within the last 2 to 3 months of C. difficile colitis. At that time, the patient did infiltrate her graft of the left upper extremity while on dialysis therapy. Plans were made for a new graft to be placed and the patient had tunneled dialysis catheter in the interim. PAST MEDICAL HISTORY: As listed above includin. Hypertension. 2. Vascular disease. 3. End-stage renal disease, on hemodialysis therapy. 4. Chronic atrial fibrillation. 5. Status post left hip fracture, status post left hemiarthroplasty. 6. History of GI bleed. 7. Blood loss anemia by history. 8. History of C. difficile colitis. 9. Spinal stenosis. 10. Severe aortic stenosis. 11. Restless legs syndrome. 12. Primary hyperparathyroidism. 13. Osteoporosis. PATIENT'S NAME: MILLY ARANGO [facility] AGE: 87 Y [address] ROOM: [address] [place] [address] LOCATION: GPCU ADMIT DATE: 04/03/2017 Consultation DISCHARGE DATE: FAMILY PHYSICIAN: Asa Dominguez MD ATTENDING PHYSICIAN: CHENG CHURCHILL 14. Osteoarthritis. 15. Hyperlipidemia. 16. Right upper extremity DVT in 2010. 17. Gout. 18. GERD. PAST SURGICAL HISTORY: 1. Abdominal hysterectomy. 2. Left arm brachiocephalic graft. 3. Right arm brachiocephalic graft. 4. Superficialization of the right arm brachial AV fistula in December 2016. 5. Bladder sling surgery. 6. Cholecystectomy. 7. ERCP. 8. EGD. 9. Exploratory laparotomy. 10. Right eye surgery. 11. Parathyroidectomy. 12. Salpingo-oophorectomy. 13. Tonsillectomy. 14. Vitrectomy. SOCIAL HISTORY: The patient denies any history of smoking or alcohol use. 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 She does live at [facility] currently and is . FAMILY HISTORY: The patient's mother of colorectal cancer in her 80s. Her sister of colorectal cancer in her 60s. Her brother of liver cancer. PHYSICAL EXAMINATION: VITAL SIGNS: Blood pressure is 135/58, heart rate 77, temperature 97.8, saturations are 95% on room air, and respirations 18. GENERAL: On exam, this is an alert and oriented white elderly female, who appears her approximate stated age and is in no acute distress. HEENT. Her head is normocephalic and atraumatic. Eyes: Pupils are equal, round, and reactive to light and accommodation. EOMs intact. Nose: Midline. Mouth: No gingival bleeding. Throat without lymphadenopathy, carotid bruits, or JVD. RESPIRATORY: Lung sounds are clear to auscultation anteriorly and posteriorly. Breaths nonlabored. CARDIOVASCULAR: Regular rate and rhythm with a grade 2 to 3/6 systolic ejection murmur heard best at the right second intercostal space with radiation to the base of the carotids. ABDOMEN: Soft, nontender, and nondistended. Bowel sounds positive. PATIENT'S NAME: MILLY ARANGO [facility] AGE: 87 Y [address] ROOM: [id number] [place] [id number] LOCATION: GPCU ADMIT DATE: 04/03/2017 Consultation DISCHARGE DATE: FAMILY PHYSICIAN: Asa Dominguez MD ATTENDING PHYSICIAN: CHENG CHURCHILL EXTREMITIES: Show trace lower extremity edema bilaterally. There is a bandage over the left upper extremity graft. She does have positive thrill and bruit in her right graft. REVIEW OF SYSTEMS: GENERAL: Denies any fevers or chills. EYES: No double vision or blurred vision. NOSE: No epistaxis or rhinorrhea. MOUTH: No gingival bleeding. THROAT: No sore throat, hoarseness, or cough. RESPIRATORY: Denies wheezing or hemoptysis. CARDIOVASCULAR: Denies any chest pain or palpitations. GASTROINTESTINAL: Denies nausea, vomiting, or diarrhea. History of C. difficile colitis. MUSCULOSKELETAL: Denies any new arthralgias or myalgias. She does have a recent left hip arthroplasty. GENITOURINARY: Denies any new frequency, urgency, or hesitancy. She does make a little urine despite hemodialysis. HEMATOLOGICAL: Denies any new bruising or bleeding. IMMUNOLOGICAL: History of C. difficile colitis. Denies new infections. PSYCHIATRIC: Denies history of depression or anxiety. However, the patient is quite anxious on hemodialysis therapy and is overall feeling down about her admission to the residential from independent living. LABORATORY DATA: ProBNP 8771. CBC showed a white count of 7, hemoglobin 9.7, hematocrit 30.1, platelets 383. Random vanc was 6.1 this morning. Blood cultures are currently pending. ALLERGIES: 1. AMOXICILLIN. 2. BACTRIM DS. 3. CEFUROXIME. 4. CEPHALEXIN. 5. CIPROFLOXACIN. 6. CLARITHROMYCIN. 7. LEVOFLOXACIN. 8. ALL PENICILLIN GROUPS AND QUINOLONE GROUPS. CURRENT HOME MEDICATIONS: Include: 1. Tylenol 500 mg two tablets every q.6 hours as needed for pain. 2. Allopurinol 300 mg daily. 3. Amlodipine 5 mg daily. 4. Aspirin 81 mg daily. PATIENT'S NAME: MILLY ARANGO [facility] AGE: 87 Y [address] ROOM: [address] [place], [place] [address] LOCATION: GPCU ADMIT DATE: 04/03/2017 Consultation DISCHARGE DATE: FAMILY PHYSICIAN: Asa Dominguez MD ATTENDING PHYSICIAN: CHURCHILL,CHENG K 5. Dulcolax 10 mg rectally p.r.n. for constipation. 6. Calcium acetate 667 mg three times a day with meals. 7. Valium 2.5 mg every 6 hours as needed for anxiety. 8. Dicyclomine 20 mg every 6 hours as needed for indigestion and irritable bowel syndrome. 9. Enoxaparin 30 mg subcutaneous every day for DVT prophylaxis until 04/16/2017. 10. Gabapentin 100 mg daily. 11. [place] 5/325 one to two tablets q.4 to 6 hours as needed for pain. 12. Milk of magnesia 30 mL daily p.r.n. constipation. 13. Melatonin 1.5 mg tablets of 3 mg tablets every night at bedtime. 14. Lopressor 25 mg daily. 15. Multivitamin daily. 16. Protonix 40 mg daily. 17. Florastor one tablet daily. 18. Nucynta two tablets every 4 hours p.r.n. pain. 19. Restoril 15 mg at night p.r.n. sleep. 20. Vancomycin 1 g IV x1 following dialysis prior to admission. ASSESSMENT AND PLAN: 1. End-stage renal disease, on hemodialysis therapy. The patient did undergo a full dialysis treatment prior to her admission today. The patient did receive 1 g of vancomycin prior to leaving dialysis. She will continue with her regular hemodialysis on Monday, Monday, and Monday as her current plan of care. We will ultrafiltrate as warranted. 2. Failed dialysis access. The patient's left graft has purulent drainage noted. Dr. Churchill at this time has recommended the patient undergo a graft removal as soon as possible. She will continue vancomycin on her hemodialysis days following procedure. 3. History of recent left hip fracture. The patient is to continue Lovenox as previously prescribed. 4. History of Clostridium difficile colitis. The patient is to continue Florastor and continue to monitor bowel movements per primary team. This patient has been seen and assessed by Dr. Gibson. Her care is being conducted in consultation with Dr. Gibson as well as me. We have collaborated with Dr. Dominguez for the patient's care. Further recommendations will be forthcoming. In the interim, the patient is scheduled for OR later this morning for excision of an AV graft. LASHAWN MELVIN DNP, [employer] MD [employer]ECTOR/jannethl PATIENT'S NAME: MILLY ARANGO [facility] AGE: 87 Y [address] ROOM: [place] [address] [facility] AD[facility] DATE: 04/03/2017 Consultation DISCHARGE DATE: FAMILY PHYSICIAN: Asa Dominguez MD ATTENDING PHYSICIAN: CHENG CHURCHILL /[id number] d: 04/06/17 0014 t: 04/19/17 1446, CONSULTATION REPORT
--- NOTE | ~2017-04-03 | DS ---
PATIENT'S NAME: MILLY ARANGO [facility] AGE: 87 Y [address] ROOM: [address] [place], [place] [address] LOCATION: GPCU ADMIT DATE: 04/03/2017 Discharge Summary DISCHARGE DATE: 04/07/2017 FAMILY PHYSICIAN: Allie Dominguez MD ATTENDING PHYSICIAN: Fritz Churchill FINAL DIAGNOSES: 1. Infected left arteriovenous fistula graft. 2. Chronic kidney disease stage IV on hemodialysis. 3. Hypertension. 4. Chronic atrial fibrillation. 5. Status post left hip fracture and left hemiarthroplasty. 6. History of gastrointestinal bleed. 7. History of Clostridium difficile colitis. 8. Spinal stenosis. 9. Severe aortic stenosis. 10. Restless legs syndrome. 11. Secondary hyperparathyroidism. 12. Osteoporosis. 13. Osteoarthritis. 14. Hyperlipidemia. 15. History of right upper extremity deep vein thrombosis in 2010. 16. History of gout. 17. History of gastroesophageal reflux disease. REASON FOR ADMIT: An 87-year-old white female, who was getting dialysis on 04/03/2017 and had also an area that was oozing from her old left graft and upper extremity. There was actually dotty pus coming out of that. She had recently been hospitalized with a left hip fracture on 03/16/2017 and surgery during that time. She had been residing at [place]. She was sent directly to Dr. Churchill's office after receiving 1 g of IV vancomycin through her IV. Dr. Churchill assessed and felt that she may be admitted. Please see dictated H and P for full details. HOSPITAL COURSE: The patient was given the IV vancomycin, was taken to the OR the next day for debridement of that. Her culture ended up growing out Proteus mirabilis from that, which was fairly pansensitive. She was switched over to Rocephin at that time. Most of her allergies have been more GI-based and true allergies from a hive standpoint. She has received a dose of the Rocephin and tolerated that well. At this point, her infection is doing much better. They are going to continue to watch her site on an outpatient and on the morning of 04/07/2017, the patient was deemed ready for discharge. DISCHARGE MEDICATIONS AND INSTRUCTIONS: 1. Zyloprim 300 mg one p.o. daily. PATIENT'S NAME: MILLY ARANGO [facility] AGE: 87 Y [address] ROOM: [address] [place], [place] [address] LOCATION: GPCU ADMIT DATE: 04/03/2017 Discharge Summary DISCHARGE DATE: 04/07/2017 FAMILY PHYSICIAN: Allie Dominguez MD ATTENDING PHYSICIAN: Fritz Churchill 2. Amlodipine 5 mg one a day. 3. Aspirin 81 mg one a day. 4. PhosLo 667 three times daily with meals. 5. Lovenox 30 mg subcu daily until 04/16/2017. 6. Gabapentin 100 mg q.a.m. 7. Melatonin 6 mg at nighttime. 8. Lopressor 25 mg b.i.d. 9. Multivitamin one a day. 10. Protonix 40 mg one a day. 11. Florastor one capsule one a day. 12. Tylenol 1000 mg every 6 hours p.r.n. 13. Nucynta 50 mg 2 every 4 hours p.r.n. 14. Restoril 15 mg at h.s. Dicyclomine 20 mg every 4 hours p.r.n. and then she will get the Rocephin 1 g IV or IM. They may do it IV on dialysis. She will do that once a day with an end date of 04/19/2017 and we will also add on gabapentin 300 mg q.h.s. for her restless legs. She is scheduled to see Dr. Churchill in 1 week and see myself in [address] Gibson will see her on dialysis. Her dressings will be wet-to-dry with normal saline daily and as needed. She voiced understanding of that plan. She will be transferred to [facility] after dialysis today. ALLIE DOMINGUEZ MD TAB/modl /[id number] d: 04/07/17828 t: 04/17/17825, DISCHARGE SUMMARY
--- NOTE | ~2017-04-03 | CON ---
PATIENT'S NAME: MILLY ARANGO [facility] AGE: 87 Y [address] ROOM: [id number] [place], [place] [address] LOCATION: GPCU ADMIT DATE: 04/03/2017 Consultation DISCHARGE DATE: FAMILY PHYSICIAN: Asa Dominguez MD ATTENDING PHYSICIAN: FRITZ CHURCHILL DATE OF CONSULTATION: 04/04/2017 REFERRING PHYSICIAN: Lucille Gibson REASON FOR CONSULTATION: The patient with infected AV fistula graft on her left arm with plan for removal by Dr. Fritz Churchill. He wants to follow from the standpoint of her general medical problems. HISTORY OF PRESENT ILLNESS: The patient is an elderly 87-year-old female who did have a history of a recent AV fistula placed in her right arm. That was back in February. She did unfortunately have a fracture to her left hip on 03/16/2017 and had a left hip hemiarthroplasty. She was independent living up until that time and has been at [facility] since. 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 She has dialysis on Monday, Monday, and Fridays. There were some concerns that the AV fistula graft was getting infected. She did have dialysis yesterday using the new right graft. It does sound like she got a dose of vancomycin IV at that time. Dr. Churchill saw the patient yesterday and did think that the left AV fistula graft was infected. It was thought best to remove it so we do not have problems with seeding her other graft, also the risks of seeding her new hemiarthroplasty on her left hip, and of course, she does have the severe aortic stenosis that puts her at risk there also. ALLERGIES: AMOXICILLIN, BACTRIM DS, CEFUROXIME AXETIL, CEPHALEXIN, CIPROFLOXACIN, CLARITHROMYCIN, LEVOFLOXACIN, AND ALL PENICILLIN GROUPS AND QUINOLONE GROUPS. CURRENT MEDICATIONS: 1. Tylenol 500 mg 2 every 6 hours as needed for pain. 2. Allopurinol 300 mg daily. 3. Amlodipine 5 mg every morning. 4. Aspirin 81 mg every day. 5. Dulcolax 10 mg rectally p.r.n. constipation. 6. Calcium acetate cap 667 three times daily with meals. 7. Valium 2.5 mg every 6 hours as needed for anxiety. 8. Dicyclomine 20 mg every 6 hours as needed for indigestion and irritable bowel syndrome. 9. Enoxaparin 30 mg subcu every day for DVT prophylaxis, until 04/16/2017 PATIENT'S NAME: MILLY ARANGO [facility] AGE: 87 Y [address] ROOM: [place] [address] LOCATION: GPCU ADMIT DATE: 04/03/2017 Consultation DISCHARGE DATE: FAMILY PHYSICIAN: Asa Dominguez MD ATTENDING PHYSICIAN: FRITZ CHURCHILL for her history of her recent left hip fracture. 10. Gabapentin 100 mg daily. 11. [place] 5/325 one to two tablets every 4 to 6 hours p.r.n. pain. 12. Milk of magnesia 30 mL daily p.r.n. constipation. 13. Melatonin 1.5 tablets of the 3 mg tabs every night at bedtime. 14. Lopressor 25 mg twice daily. 15. A multivitamin daily. 16. Pantoprazole 40 mg daily. 17. Florastor capsules 1 daily. 18. Nucynta 2 tablets every 4 hours p.r.n. pain. 19. Restoril 15 mg at night p.r.n. for sleep. 20. Vancomycin which I think she was on 500 mg IV every 12 hours. CHRONIC HEALTH PROBLEMS: History of a posthemorrhagic anemia on 04/27/2015 after a lower GI bleed, source was not identified. She had a tagged red cell scan that did not show any source. She has a history of paroxysmal atrial fibrillation; chronic kidney disease, stage V, requiring dialysis; history of colon perforation, 04/27/2015 secondary to colonoscopy; previous history of duodenal ulcer, 01/13/2012 with an EGD which did show an acute duodenal ulcer at that time; gastroesophageal reflux disease; gout; history of previous DVT in 2010 in her right upper extremity; history of mixed hyperlipidemia; hypertensive chronic kidney disease; osteoarthritis; and history of osteoporosis with fracture. She had a T-score of -9 at the spine and -3.6 at the left femoral neck that was done by Dr. Sheets. History of constipation; hyperparathyroidism, it is listed as primary, but I wonder if it is not secondary due to her dialysis and chronic kidney disease; restless legs syndrome; severe aortic stenosis; and spinal stenosis. PREVIOUS SURGERIES: She has had a history of an abdominal hysterectomy in the 70s. AV fistula placement, 06/04/[address] Churchill on the left arm and then on 02/28/2017 on the right arm. She had a revision of right arm AV fistula with new AV graft on 02/28/2017. She has had a history of a bladder surgery in the , cholecystectomy in 1979, last colonoscopy in 04/2015 where she did have a perforated sigmoid colon with moderate diverticulosis. She needs no future scopes. She has had a history of declotting of her graft in the past. She has had previous DEXA scans; ERCP, 12/25/2014; echo, 02/09/2017, which showed EF of 60% to 65% with grade 1 diastolic dysfunction and severe aortic stenosis; and EGD in 01/2012, which showed active duodenal ulcer. She had a previous exploratory laparotomy. Previous eye surgery in 2006 where they put the lens back in the right eye. Fistulograms with declotting in the past, one in 01/2017. Hemiarthroplasty of the left hip. Parathyroidectomy, 09/03/2013. Removal of dialysis access, 10/2015. Salpingo-oophorectomy in the . Sling operation, . Thoracentesis, 05/21/2015 on the left. Tonsillectomy at age PATIENT'S NAME: MILLY ARANGO [facility] AGE: 87 Y [address] ROOM: [place] [address] LOCATION: GPCU ADMIT DATE: 04/03/2017 Consultation DISCHARGE DATE: FAMILY PHYSICIAN: Asa Dominguez MD ATTENDING PHYSICIAN: FRITZ CHURCHILL and vitrectomy in the for detached retina. SOCIAL HISTORY: The patient does not drink. Does not smoke. She previously lived at home, but since her hip fracture, has been at [facility]. She states that she really would like to go to [facility] if at all possible, after this hospital stay. REVIEW OF SYSTEMS: HEENT: Negative. LUNGS: Denies shortness of breath. CHEST: No pains, pressure, or tightness. GI: Negative. : Negative. MUSCULOSKELETAL: Does have a history of the recent infection in the left AV fistula graft. Has a functioning fistula in the right arm. She does have also a history of the recent left hip surgery, and that is why she is in [facility] for physical therapy. PHYSICAL EXAMINATION: GENERAL: Shows an alert elderly female who is alert and oriented. HEENT: Her head is normocephalic, atraumatic. Her ears, eyes, nose, and throat were clear. NECK: Supple. No adenopathy. LUNGS: Clear throughout. HEART: Regular rate and rhythm with 3 to 4/6 systolic ejection murmur suggestive of aortic stenosis. ABDOMEN: Shows bowel sounds positive. She is nontender and nondistended. EXTREMITIES: No cyanosis, clubbing, or edema. She does have signs of a recent left hip surgery. Arm: She has a nice thrill functioning in her right AV fistula graft. On the left side, there is no thrill and the area is currently dressed. RECENT VITAL SIGNS: Show her temp 97.5, pulse 75, respirations 16, blood pressure 115/56, and saturation is 94% on room air. LABORATORY DATA: The patient had a proBNP last night at 8771. Her CBC showed a white count of 7, hemoglobin 9.7, hematocrit 30.1, and platelet count 383. Her random vanco at 4:43 this morning was 6.1. Her differential showed 63.8% neutrophils, 22.8% lymphocytes, and 9.8% monocytes. Blood cultures are currently pending. ASSESSMENT: 1. Infected left AV fistula graft which was nonfunctioning. 2. End-stage chronic kidney disease, hypertensive in nature, for which she is on chronic dialysis and did have her recent dialysis on 04/03/2017. PATIENT'S NAME: MILLY ARANGO [facility] AGE: 87 Y [address] ROOM: [place] [address] LOCATION: GPCU ADMIT DATE: 04/03/2017 Consultation DISCHARGE DATE: FAMILY PHYSICIAN: Asa Dominguez MD ATTENDING PHYSICIAN: FRITZ CHURCHILL 3. Infected graft as mentioned above for which, it sounds like she had vancomycin given yesterday. 4. Hypertension. 5. History of severe aortic stenosis with ejection fraction of 60% to 65% on echo, 02/09/2017 with grade 1 diastolic dysfunction. 6. History of left hip hemiarthroplasty due to left hip fracture from which she was recovering at [facility] with physical therapy. 7. Paroxysmal atrial fibrillation, currently in sinus. 8. Past history of colon perforation secondary to colonoscopy. 9. Past history of duodenal ulcer, and she is on a proton pump inhibitor currently. 10. Deep venous thrombosis prophylaxis for which she has gotten Lovenox. We will hold her dose today for her surgery and then plan on resuming tomorrow. 11. Hyperlipidemia. 12. History of severe osteoporosis. 13. History of primary hyperparathyroidism in the past for which she had the parathyroidectomy. 14. Severe aortic stenosis. 15. History of spinal stenosis. PLAN: We will go ahead and get a chemistry panel and make sure everything looks fine there. I have held her Lovenox today in preparation for surgery. We will resume it from tomorrow. Vancomycin is being covered by Pharmacy and they are dosing as needed. Dr. Churchill is consulted, Dr. Gibson for dialysis care. She will probably need it tomorrow. We will let them determine how long they have to use the IV antibiotics on her. Overall, her situation is very stable. MD TACOS CARD/tiki /[id number] d: 04/04/17 1448 t: 04/13/17 0809, CONSULTATION REPORT
[~2017-04-03 18:33] MED LIST changes: -DULCOLAX10 MG R; -FLORASTOR250 MG PO; -LOVENOX 3030 MG/0.3 SUB-Q; -MILK OF MA400 MG/5 M PO; -NUCYNTA50 MG PO; -VANCOMYCIN IV; -WOMEN'S DAILY1 EAC1 PO
[2017-04-03 19:57] LABS: BASOPHIL # 0.1 K/uL (0.0-0.2); BASOPHIL % 1.3 %; EOSINOPHIL # 0.1 K/uL (0.0-0.5); HEMOGLOBIN 9.7 g/dL (10.0-15.0); IMMATURE GRANULOCYTE % 0.3 %; LYMPHOCYTE # 1.6 K/uL (0.8-4.0); LYMPHOCYTE % 22.8 %; MCV 91.5 fl (83.0-98.0); MONOCYTE # 0.7 K/uL (0.0-1.0); MONOCYTE % 9.8 %; NEUTROPHIL # (ANC) 4.5 K/uL (1.8-7.8); NEUTROPHIL % 63.8 %; NRBC % 0 /100WBC (0-0.00)
[2017-04-03 19:59] LABS: HEMATOCRIT 30.1 % (30.0-46.0); MCH 29.5 pg (27.0-34.0); MCHC 32.2 gm/dL (32.0-36.5); PLATELET COUNT 383 K/uL (150-450); RBC 3.29 M/uL (3.00-5.00)
[2017-04-03] MEDS ORDERED: DULCOLAX10 MG R (21:34)
[2017-04-03] MEDS ORDERED: ZYLOPRIM300 MG PO (21:34)
[2017-04-03] MEDS ORDERED: NEURONTIN100 MG PO (21:35)
[2017-04-03] MEDS ORDERED: FLORASTOR250 MG PO (21:35)
[2017-04-03] MEDS ORDERED: LOVENOX 3030 MG/0.3 SUB-Q (21:36)
[2017-04-03] MEDS ORDERED: MELATONIN3 MG PO (21:36)
[2017-04-03] MEDS ORDERED: LOPRESSOR25 MG PO (21:37)
[2017-04-03] MEDS ORDERED: MILK OF MA400 MG/5 M PO (21:37)
[2017-04-03] MEDS ORDERED: WOMEN'S DAILY1 EAC1 PO (21:38)
[2017-04-03] MEDS ORDERED: NUCYNTA50 MG PO (21:39)
[2017-04-03] MEDS ORDERED: PROTONIX40 MG PO (21:40)
[2017-04-03] MEDS ORDERED: RESTORIL15 MG PO (21:40)
[2017-04-03] MEDS ORDERED: PHOSLO667 MG PO (21:40)
[2017-04-03] MEDS ORDERED: VANCOMYCIN IV (21:41)
[2017-04-03] MEDS ORDERED: VALIUM5 MG PO (21:41)
--- NOTE | 2017-04-04 05:07 | NUR ---
PATIENT WAS ADMITTED FROM DIALYSIS WITH SIGNS OF INFECTIONS AT HER L) AV GRAFT SITE. PATIENT WAS IN HOSPITAL EARLIER THIS MONTH FOR A L) HIP REPLACEMENT, L) HIP IS COVERED WITH DRESSING AND HAS NO SIGNS OF COMPLICATIONS. PATIENT A/0 x3. VITALS STABLE AT THIS TIME.
--- NOTE | 2017-04-04 05:13 | NUR ---
Significant Event: A/O x3. NO N/T. ONE ASSIST WITH WALKER AND GAITBELT. PATIENT HAS CONSULT TOMORROW TO HAVE A MIDLINE PUT IN PLACE. PULSES 1+ IN UPPERS, 2+ IN LOWERS. 1+ EDEMA THROUGHOUT EXTREMITIES. CLEAR AND DIM THROUGHOUT, ON RA. DRESSING TO L) HIP SURGICAL SITE, C/D/I. SKIN TEAR ON L) FOREARM COVERED WITH STERI STRIPS AND OPEN TO AIR. R) UPPER ARM AV GRAFT SITE OPEN TO AIR. L) UPPER ARM AV GRAFT DRESSED WITH GAUZE AND PAPER TAPE. PATIENT IS NPO AFTER MIDNIGHT, PLAN IS TO HAVE THE L) AV GRAFT REMOVED TOMORROW. SHOWER LAST NIGHT. NO BM. Follow up:
[2017-04-04 10:12] LABS: ALBUMIN 2.9 gm/dL (3.5-5.0); ANION GAP 11.1 (10.0-19.0); CALCIUM 8.5 mg/dL (8.5-10.5); CREATININE 2.9 mg/dL (0.5-1.1); POTASSIUM 4.1 mMol/L (3.7-5.1); TOTAL PROTEIN 6.2 g/dL (6.0-8.4)
[2017-04-04 10:13] LABS: TOTAL BILIRUBIN 0.3 mg/dL (0.0-1.5)
--- NOTE | 2017-04-04 15:00 | NUR ---
I got a consult from asking about a bed at [facility]. I spoke with nursing because pt was going down for a procedure and she only gets one bath a week at [facility] and wants to look at [facility]. I called Bisi with [facility] and faxed a referral. I will try to touch base with pt later today. SHe gets dialysis m-w-f at 1050.
--- NOTE | 2017-04-04 15:22 | NUR ---
Attempted to go and see Kim for ZULEIKA Pagan but per RN Tia, she is out of her room and down in OR. Will attempt to see at a later time.
--- NOTE | 2017-04-04 18:16 | NUR ---
Significant Event: A/OX3, VSS ON RA. NO PAIN. PT. GETS UP SBA WITH WALKER, UP TO BATHROOM AND CHAIR TODAY. PT/OT STARTED. RIGHT IJ HAS NS @ 50ml/HR X4HRS. LEFT ARM FISTULA REMOVED TODAY IN SURGERY, GAUZE/TEGADERM DRESSING TO ARMPIT AREA, VASELINE GAUZE/GAUZE/KERLIX WRAP TO UPPER ARM THEN ARM IS WRAPPED WITH AN LAKISHA WRAP, DRESSINGS ARE C/D/I, PULSES 2+. FAMILY HERE. Follow up: CONTINUE WITH POC.
[2017-04-05 04:17] LABS: BASOPHIL # 0.1 K/uL (0.0-0.2); BASOPHIL % 1.2 %; EOSINOPHIL # 0.3 K/uL (0.0-0.5); EOSINOPHIL % 4.6 %; HEMATOCRIT 26.2 % (30.0-46.0); HEMOGLOBIN 8.2 g/dL (10.0-15.0); IMMATURE GRANULOCYTE # 0.1 K/uL (0.0-0.3); IMMATURE GRANULOCYTE % 0.8 %; LYMPHOCYTE # 1.6 K/uL (0.8-4.0); LYMPHOCYTE % 26.7 %; MCH 29.4 pg (27.0-34.0); MCHC 31.3 gm/dL (32.0-36.5); MCV 93.9 fl (83.0-98.0); MONOCYTE # 0.7 K/uL (0.0-1.0); MONOCYTE % 11.4 %; MPV 8.8 fl (9.4-12.4); NEUTROPHIL # (ANC) 3.3 K/uL (1.8-7.8); NEUTROPHIL % 55.3 %; NRBC % 0 /100WBC (0-0.00); PLATELET COUNT 358 K/uL (150-450); RBC 2.79 M/uL (3.00-5.00); RDW-CV 15.9 % (11.9-14.6)
[2017-04-05 04:34] LABS: ALBUMIN 2.5 gm/dL (3.5-5.0); ANION GAP 12.3 (10.0-19.0); CALCIUM 7.8 mg/dL (8.5-10.5); CREATININE 3.5 mg/dL (0.5-1.1); PHOSPHORUS 2.2 mg/dL (2.5-4.9); POTASSIUM 4.3 mMol/L (3.7-5.1)
--- NOTE | 2017-04-05 04:46 | NUR ---
Significant Event: A/O x3, NO N/T. ONE ASSIST, WALKER/GAITBELT. R) IJ, SALINE LOCKED, NO COMPLICATIONS. 1+ PULSES UPPERS AND LOWERS, 1+ EDEMA UPPER AND LOWER EXTREMITIES. NSR. PATIENT ON RA. GAUZE TO L) ARMPIT AND UPPER L) ARM, COVERED BY LAKISHA WRAP, CDI. IMMOBILIZER IN BETWEEN LEGS WHILE SLEEPING. DIALYSIS IN MORNING. Follow up:
--- NOTE | 2017-04-05 13:56 | NUR ---
Introduced self and role of care management to pt. I discussed concerns about returning back to [facility] and wanting [facility]. I stated I heard about only getting a bath once a week and that is what [facility] does. She states that is a minor issue not really the bath she has to ask for wash cloths every am, it is dirty, smells, and they have met with administration on some other issues as well and her low sodium diet because she went up 4kg over the weekend. She feels bad but does not want to return. I asked if she has been at [facility] and she states a friend at least state it is clean. I did tell her they have a room for a short stay and pt states that is all she wants because she wants to get back home. I did tell her they do transport for dialysis and shis is m-w-f at 1100. I then called Bisi back with [facility] and she will be over to meet with pt this afternoon. WIll continue to follow.
--- NOTE | 2017-04-05 15:52 | NUR ---
Significant Event: A/OX3, VSS ON RA. PT. GETS UP SBA WITH WALKER TO BATHROOM. 1L REMOVED TODAY IN DIALYSIS, WILL HAVE AGAIN ON MONDAY. RIGHT IJ IS SALINE LOCKED. NO PAIN. LARGE BM TODAY. VANCO GIVEN IN DIALYSIS. DR. SAUCEDA PA TO SEE PT. POSSIBLY TOMORROW FROM F/U ON HIP SURGERY. LEFT HIP MEPILEX DRESSING IS C/D/I. LEFT ARMPIT DRESSING IS C/D/I, UPPER ARM DRESSING CHANGED TODAY WITH KHADIJAH. DRESSING C/D/I AND CHANGED TO WET-DRY DRESSING TO THAT SITE WITH DAKINS SOLUTION DAILY. LEFT FOREARM SKIN TEAR DRESSING CHANGED TODAY TO VASELINE GAUZE/GAUZE/COBAN. RIGHT ARM FISTULA HAS B/T. Follow up: CONTINUE WITH POC.
--- NOTE | 2017-04-06 04:54 | NUR ---
Significant Event: A/O x3, NO N/T. SBA, WALKER AND GAITBELT. R) IJ, DOUBLE LUMEN, SALINE LOCKED, NO COMPLICATIONS. 1+ PULSES THROUGHOUT EXTREMITIES. GENERALIZED EDEMA IN EXTREMITIES. PATIENT ON RA. ACTIVE BOWEL SOUNDS. L) FOREARM DRESSING CDI, L) ARMPIT DRESSING CDI, R) UPPER ARM DRESSING CDI, L) UPPER ARM DRESSING IS LOOSE, SOME BLOODY DRAINAGE ON DRESSING, ADJUSTED DRESSING OVER WOUND. SMALL BM AT BEGINNING OF SHIFT. PATIENT RECEIVED MEDICATIONS FOR SLEEP AND FOR UPSET STOMACH. Follow up:
[2017-04-06 05:33] LABS: BASOPHIL % 0.6 %; EOSINOPHIL # 0.4 K/uL (0.0-0.5); EOSINOPHIL % 6.6 %; HEMATOCRIT 25.5 % (30.0-46.0); IMMATURE GRANULOCYTE % 0.3 %; LYMPHOCYTE # 1.5 K/uL (0.8-4.0); LYMPHOCYTE % 23.5 %; MCH 29.5 pg (27.0-34.0); MCHC 31.4 gm/dL (32.0-36.5); MCV 94.1 fl (83.0-98.0); MONOCYTE # 0.8 K/uL (0.0-1.0); MONOCYTE % 13.1 %; MPV 8.8 fl (9.4-12.4); NEUTROPHIL # (ANC) 3.5 K/uL (1.8-7.8); NEUTROPHIL % 55.9 %; NRBC % 0.3 /100WBC (0-0.00); PLATELET COUNT 311 K/uL (150-450); RBC 2.71 M/uL (3.00-5.00); RDW-CV 16.2 % (11.9-14.6); WBC 6.2 K/uL (4.0-11.0)
--- NOTE | 2017-04-06 14:50 | NUR ---
I got a call this am from [facility] stating they can accept pt and hoping for today. I explained I do not know if that will work due to waiting for the cultures. She plans to come up and do the paperwork with daughter and pt. I stated at this time the vanco is with dialysis and will see if that continues. I then got a call from nursing that it will be rocephin iv everyday for 2weeks. I then spoke with Zaida and the only source for a line is a central line and she does not want the pt to leave the hospital with it. Her plan was to put her on oral meds but Dr Gibson and Angelica want this, but she will talk with Dr Churchill. In the mean time I did update [facility] and they can not use a central line or maintain it and transporting everyday will not work either. Zaida called back and the doctors are fine with IM Rocephin for two weeks. She will speak with the pt and make sure this will work. She states she should be able to go to longterm if other md's agree. [facility] did call back and they can do IM Rocephin. WIll continue to follow.
--- NOTE | 2017-04-06 15:56 | NUR ---
I spoke with pt and she states her daughter is planning on going down to [facility] and getting her things and will talk with them. I spoke with pt and she is aware she will need IM shots and is ok with it for the short time. I will update [facility].
--- NOTE | 2017-04-06 18:02 | NUR ---
Significant Event: patient alert and oriented x3. gauze/tegaderm dressing to l) armpit intact with scant amount of old drainage, dressing to l) forearm c/d/i, dressing to l) upper arm changed this afternoon by Dr. Churchill's PA. mepilex dressing to l) hip c/d/i. fistula to r) upper arm. ambulates to bathroom, up in [place] and up to chair with sba, use of walker/gait belt. r) IJ double lumen patent, flushes well with good blood return. rocephin iv intial dose given this afternoon. denied pain when asked. Follow up: patient to transfer to [place] tomorrow, please give IV rocephin prior to discharge. Dialysis tomorrow.
[2017-04-07 03:46] LABS: BASOPHIL # 0.1 K/uL (0.0-0.2); BASOPHIL % 0.8 %; EOSINOPHIL # 0.4 K/uL (0.0-0.5); EOSINOPHIL % 6.5 %; HEMATOCRIT 24.9 % (30.0-46.0); IMMATURE GRANULOCYTE % 0.3 %; LYMPHOCYTE # 1.5 K/uL (0.8-4.0); LYMPHOCYTE % 24.4 %; MCH 30.5 pg (27.0-34.0); MCHC 32.1 gm/dL (32.0-36.5); MONOCYTE # 0.8 K/uL (0.0-1.0); MONOCYTE % 12.6 %; MPV 9.1 fl (9.4-12.4); NEUTROPHIL # (ANC) 3.5 K/uL (1.8-7.8); NEUTROPHIL % 55.4 %; NRBC % 0.3 /100WBC (0-0.00); PLATELET COUNT 313 K/uL (150-450); RBC 2.62 M/uL (3.00-5.00); RDW-CV 16.3 % (11.9-14.6); WBC 6.3 K/uL (4.0-11.0)
--- NOTE | 2017-04-07 05:19 | NUR ---
Significant Event: PT A/O X3 SBP 120-160 HR 70'S SATS 96% ON RA. PT HAS DOUBLE LUMEN RIGHT JUGULAR. FISTULA RT UPPER ARM PT HAS DRESSING TO LEFT FOREARM, FROM FISTULA REMOVAL, DRESSING CHANGE DAILY WET TO DRY WITH NS. BANDAGES ON LEFT AREM C/D/I. PT HAS DIALYSIS TODAY, NEEDS TO HAVE AN IV DOSE OF ROCEPHIN BEFORE GOING BACK TO [facility]. THEN WILL CONTINUE WITH ROCEPHIN SHOTS THERE. PT HAD 200 UOP. PT C/O PAIN AND COULD NOT FALL ASLEEP. PT ASKED FOR VALIUM AT 2050 BENADRYL AT 2300, TYLENOL AT 0145. PT STATED IT HELPED HER SLEEP SOME. Follow up: FOLLOW CARE PLAN.
[2017-04-07 08:35] LABS: ALBUMIN 2.8 gm/dL (3.5-5.0); ANION GAP 10.7 (10.0-19.0); CALCIUM 8.3 mg/dL (8.5-10.5); CREATININE 3.7 mg/dL (0.5-1.1); POTASSIUM 4.7 mMol/L (3.7-5.1)
--- NOTE | 2017-04-07 14:29 | NUR ---
Significant Event:pt had diayisis today 1kg off. XS tylenol in dialyis, then norco given at 1350 for R)lower leg pain. Dr removed l)hp dressing. Dr changed L)arm dressing. Pt had her antibiotic in dialysis. Xray done of hip/pelvis. PT amb pt several times in [place] with walker. Follow up:to go to [facility]
--- NOTE | 2017-04-07 16:09 | NUR ---
D-DR BENNETT DC TO PA [employer] AND RN GOT PACKET READY, XRAY DONE AND ROMI BENNETT DC, DRESSINGS CHANGED BY PAS TODAY, JUGULAR DC BY RN CATRACHO NORMAL PROTOCOL NO PROBLEM AND PT LAY FOR 15MIN AND VSS, PT AMB PT IN WOOD TO HELP HER DISCOMFORT BUT PAIN PILL AND REST IN BED HELPED MOST, R-PT UP TO WC OK AND NURSES GOT PT DRESSED, ALL SUPPLIES READY, PT CALLED HER DAUGHTER, RN GAVE REPORT TO [facility] OF HX, DRESSINGS CHANGED LEFT ARM/L)HIP, FISTULA R)ARM, XRAY DONE OF PELVIS, DIALYSIS TODAY 1KG OFF, NORVASC GIVEN AFTER DIALYSIS FOR SBP, NORCO AT 1350 AND TYLENOL IN DIALYSIS FOR R)MCNAMARA PAIN AFTER BP TAKEN LAST NIGHT, [employer] TE[employer]ER CAME WITH W/C TO GET PT AND SUPPLIES OK
--- NOTE | 2017-04-07 16:50 | NUR ---
I spoke with pt today in dialysis around [address] Dominguez had been by and did orders. She stated her daughter got her belongings out of [place] and I told her I called [facility] and they will get the wheelchair. I did verbally review IMM and she is ready but feels safe here. I then called up to Jazmin at [facility] and they will get the Rocephin ordered for her but don't know if it will be there by Monday. I told her I would update [facility] for them to be in contact with them. I did call Bisi at [facility] and faxed orders and updated her on the Rocephin. I spoke with Amairani MIRANDA around 1130 stating plan for transfer around 1330-2 pending when she is ready. I also called her daughter and she is aware she will be going to [facility] today and will be there after 5pm. I called [facility] and a new time set up for 1430. WIll assist as needed.
== END 2017-04-07 14:00 | DRG 252 ==
LOC: GPCU 18:33
PROVIDERS: Internal Medicine Nephrology; Nurse Practitioner; Obstetrics & Gynecology Obstetrics; ADMIT Surgery Vascular Surgery
DX: T82.7XXA Infection and inflammatory reaction due to other cardiac and vascular devices, implants and grafts, initial encounter (principal); N18.6 End stage renal disease; I12.0 Hypertensive chronic kidney disease with stage 5 chronic kidney disease or end stage renal disease; I27.2 Other secondary pulmonary hypertension; N25.81 Secondary hyperparathyroidism of renal origin; I48.0 Paroxysmal atrial fibrillation; D62 Acute posthemorrhagic anemia; I48.2 Chronic atrial fibrillation; G25.81 Restless legs syndrome; B96.4 Proteus (mirabilis) (morganii) as the cause of diseases classified elsewhere; E78.5 Hyperlipidemia, unspecified; Z99.2 Dependence on renal dialysis; I35.0 Nonrheumatic aortic (valve) stenosis; M81.0 Age-related osteoporosis without current pathological fracture; K21.9 Gastro-esophageal reflux disease without esophagitis; M10.9 Gout, unspecified; Y83.2 Surgical operation with anastomosis, bypass or graft as the cause of abnormal reaction of the patient, or of later complication, without mention of misadventure at the time of the procedure; M19.90 Unspecified osteoarthritis, unspecified site; M48.00 Spinal stenosis, site unspecified; Z86.718 Personal history of other venous thrombosis and embolism; Z85.828 Personal history of other malignant neoplasm of skin; Z86.19 Personal history of other infectious and parasitic diseases; Z87.81 Personal history of (healed) traumatic fracture; Z79.82 Long term (current) use of aspirin; Z96.642 Presence of left artificial hip joint; Z88.1 Allergy status to other antibiotic agents; Z88.0 Allergy status to penicillin; K59.00 Constipation, unspecified
CPT/HCPCS: J0696; J1644; J1650; J2001; J2185; J2405; J2720; J3010; J3370; J7030; J7040; J7050